=== PATIENT | male | born 1940 | race Caucasian/White ===

== ENCOUNTER 2017-06-23 00:40 | Day surgery (SDC) | payer MEDICARE, SELFPAY ==
[~2017-06-23 00:40] MED LIST: ACET500 PO; AMOCLA875 PO; ASPI81CH PO; AZIT250 PO; Aspirin EC325 MG PO; BISA5EC PO; Bactrim Ds Tab1 EACH PO; CALCA500CH PO; CALCIUM PO; CENTRUM ADULTS1 EACH PO; CEPH500 PO; Ceftriaxon2 GM/50 ML IV; Crutch1 EACH MISC; DOCU100 PO; ENOX40I SC; FINA5 PO; HYDACE5 PO; HYDACE7.5 PO; HYDCHL12.5 PO; HYDR1TAB94 PO; Hydrochloroth12.5 MG PO; LEVFLO500 PO; METHI10 PO; METO10 PO; METO25 PO; MICROZIDE12.5 MG PO; MULVITMIND PO; Metoprolol Tart25 MG PO; Norco 5-325 Ta1 EACH PO; OMEP20ER PO; OXYACE5T PO; OXYC5 PO; PAIN RELIEVER500 MG PO; PROM25 PO; Prilosec Otc20 MG PO; RIFA300 PO; RXCEPH500 PO; RXPROM25S PR; SULTRIDS PO; WARF2 PO
== END 2017-06-23 09:55 | disposition home or self-care (01) ==
LOC: ATC 00:40
DX: M86.9 Osteomyelitis, unspecified (principal); I10 Essential (primary) hypertension; E07.9 Disorder of thyroid, unspecified
CPT/HCPCS: 96365; J0696

== ENCOUNTER 2017-06-24 00:48 | Day surgery (SDC) | payer MEDICARE, SELFPAY | END 2017-06-24 10:10 | disposition home or self-care (01) | LOC: ATC 00:48 | DX: M86.9 Osteomyelitis, unspecified (principal); I10 Essential (primary) hypertension; E07.9 Disorder of thyroid, unspecified | CPT/HCPCS: 96365; J0696; J7050 ==

== ENCOUNTER 2017-06-25 00:19 | Day surgery (SDC) | payer MEDICARE, SELFPAY | END 2017-06-25 10:13 | disposition home or self-care (01) | LOC: ATC 00:19 | DX: M86.9 Osteomyelitis, unspecified (principal); I10 Essential (primary) hypertension; Z87.891 Personal history of nicotine dependence | CPT/HCPCS: 96365; J0696; J7050 ==

== ENCOUNTER 2017-06-27 00:26 | Day surgery (SDC) | payer MEDICARE, SELFPAY | END 2017-06-27 09:40 | disposition home or self-care (01) | LOC: ATC 00:26 | DX: M86.8X7 Other osteomyelitis, ankle and foot (principal); I10 Essential (primary) hypertension; E07.9 Disorder of thyroid, unspecified; Z79.899 Other long term (current) drug therapy | CPT/HCPCS: 96365; J0696; J7050 ==

== ENCOUNTER 2017-07-02 00:08 | Day surgery (SDC) | payer MEDICARE, SELFPAY | END 2017-07-02 09:37 | disposition home or self-care (01) | LOC: ATC 00:08 | DX: M86.9 Osteomyelitis, unspecified (principal); I10 Essential (primary) hypertension | CPT/HCPCS: 96365; J0696; J7050 ==

== ENCOUNTER 2017-07-03 00:30 | Day surgery (SDC) | payer MEDICARE, SELFPAY | END 2017-07-03 09:36 | disposition home or self-care (01) | LOC: ATC 00:30 | DX: M86.8X7 Other osteomyelitis, ankle and foot (principal); I10 Essential (primary) hypertension; E07.9 Disorder of thyroid, unspecified; Z96.652 Presence of left artificial knee joint; Z79.899 Other long term (current) drug therapy | CPT/HCPCS: 96365; J0696; J7050 ==

== ENCOUNTER 2017-07-04 00:06 | Day surgery (SDC) | payer MEDICARE, SELFPAY | END 2017-07-04 09:54 | disposition home or self-care (01) | LOC: ATC 00:06 | DX: M86.8X7 Other osteomyelitis, ankle and foot (principal); I10 Essential (primary) hypertension; E07.9 Disorder of thyroid, unspecified; Z79.899 Other long term (current) drug therapy; Z96.652 Presence of left artificial knee joint | CPT/HCPCS: 96365; J0696; J7050 ==

== ENCOUNTER 2017-07-05 00:22 | Day surgery (SDC) | payer MEDICARE, SELFPAY | END 2017-07-05 09:37 | disposition home or self-care (01) | LOC: ATC 00:22 | DX: M86.8X7 Other osteomyelitis, ankle and foot (principal); I10 Essential (primary) hypertension; E07.9 Disorder of thyroid, unspecified; Z79.899 Other long term (current) drug therapy; Z96.652 Presence of left artificial knee joint | CPT/HCPCS: 96365; J0696; J7050 ==

== ENCOUNTER 2017-07-06 01:04 | Day surgery (SDC) | payer MEDICARE, SELFPAY | END 2017-07-06 09:58 | disposition home or self-care (01) | LOC: ATC 01:04 | DX: M86.8X7 Other osteomyelitis, ankle and foot (principal); I10 Essential (primary) hypertension; E07.9 Disorder of thyroid, unspecified; Z79.899 Other long term (current) drug therapy; Z96.652 Presence of left artificial knee joint | CPT/HCPCS: 96365; J0696; J7050 ==

== ENCOUNTER 2017-07-07 00:45 | Day surgery (SDC) | payer MEDICARE, SELFPAY | END 2017-07-07 09:50 | disposition home or self-care (01) | LOC: ATC 00:45 | DX: M86.9 Osteomyelitis, unspecified (principal); Z87.891 Personal history of nicotine dependence | CPT/HCPCS: 96365; J0696; J7050 ==

== ENCOUNTER 2017-07-08 00:45 | Day surgery (SDC) | payer MEDICARE, SELFPAY | END 2017-07-08 09:07 | disposition home or self-care (01) | LOC: ATC 00:45 | DX: M86.8X7 Other osteomyelitis, ankle and foot (principal); I10 Essential (primary) hypertension; E07.9 Disorder of thyroid, unspecified; Z79.899 Other long term (current) drug therapy; Z96.652 Presence of left artificial knee joint | CPT/HCPCS: 96374; J0696 ==

== ENCOUNTER 2017-07-09 00:25 | Day surgery (SDC) | payer MEDICARE, SELFPAY | END 2017-07-09 09:20 | disposition home or self-care (01) | LOC: ATC 00:25 | DX: M86.8X7 Other osteomyelitis, ankle and foot (principal); I10 Essential (primary) hypertension; E07.9 Disorder of thyroid, unspecified; Z79.899 Other long term (current) drug therapy; Z96.652 Presence of left artificial knee joint | CPT/HCPCS: 96374; J0696 ==

== ENCOUNTER 2017-07-10 00:12 | Day surgery (SDC) | payer MEDICARE, SELFPAY | END 2017-07-10 09:15 | disposition home or self-care (01) | LOC: ATC 00:12 | DX: M86.8X7 Other osteomyelitis, ankle and foot (principal); I10 Essential (primary) hypertension; E07.9 Disorder of thyroid, unspecified; Z79.899 Other long term (current) drug therapy; Z96.652 Presence of left artificial knee joint | CPT/HCPCS: 96374; J0696 ==

== ENCOUNTER 2017-07-11 00:34 | Day surgery (SDC) | payer MEDICARE, SELFPAY | END 2017-07-11 09:03 | disposition home or self-care (01) | LOC: ATC 00:34 | DX: M86.9 Osteomyelitis, unspecified (principal); I10 Essential (primary) hypertension; Z87.891 Personal history of nicotine dependence | CPT/HCPCS: 96374; J0696 ==

== ENCOUNTER 2017-07-12 00:45 | Day surgery (SDC) | payer MEDICARE, SELFPAY | END 2017-07-12 09:26 | disposition home or self-care (01) | LOC: ATC 00:45 | DX: M86.9 Osteomyelitis, unspecified (principal); I10 Essential (primary) hypertension; E07.9 Disorder of thyroid, unspecified; Z87.891 Personal history of nicotine dependence | CPT/HCPCS: 85651; 86141; 96374; J0696 ==

== ENCOUNTER 2017-07-13 00:25 | Day surgery (SDC) | payer MEDICARE, SELFPAY | END 2017-07-13 09:10 | disposition home or self-care (01) | LOC: ATC 00:25 | DX: M86.9 Osteomyelitis, unspecified (principal); Z87.891 Personal history of nicotine dependence | CPT/HCPCS: 96374; J0696 ==

== ENCOUNTER 2017-07-14 01:05 | Day surgery (SDC) | payer MEDICARE, SELFPAY | END 2017-07-14 09:26 | disposition home or self-care (01) | LOC: ATC 01:05 | DX: M86.8X7 Other osteomyelitis, ankle and foot (principal); T84.69XA Infection and inflammatory reaction due to internal fixation device of other site, initial encounter; I10 Essential (primary) hypertension; E03.9 Hypothyroidism, unspecified; Z79.899 Other long term (current) drug therapy | CPT/HCPCS: 96374; J0696 ==

== ENCOUNTER 2017-07-15 00:25 | Day surgery (SDC) | payer MEDICARE, SELFPAY | END 2017-07-15 09:25 | disposition home or self-care (01) | LOC: ATC 00:25 | DX: M86.9 Osteomyelitis, unspecified (principal); I10 Essential (primary) hypertension; E07.9 Disorder of thyroid, unspecified; Z87.891 Personal history of nicotine dependence | CPT/HCPCS: 96374; J0696 ==

== ENCOUNTER 2017-07-16 00:10 | Day surgery (SDC) | payer MEDICARE, SELFPAY | END 2017-07-16 09:11 | disposition home or self-care (01) | LOC: ATC 00:10 | DX: M86.9 Osteomyelitis, unspecified (principal); I10 Essential (primary) hypertension; Z87.891 Personal history of nicotine dependence | CPT/HCPCS: 96374; J0696 ==

== ENCOUNTER 2017-07-17 00:14 | Day surgery (SDC) | payer MEDICARE, SELFPAY | END 2017-07-17 09:20 | disposition home or self-care (01) | LOC: ATC 00:14 | DX: M86.8X7 Other osteomyelitis, ankle and foot (principal); I10 Essential (primary) hypertension; E03.9 Hypothyroidism, unspecified; Z96.652 Presence of left artificial knee joint; Z79.899 Other long term (current) drug therapy; Z87.891 Personal history of nicotine dependence | CPT/HCPCS: 96374; J0696; J7050 ==

== ENCOUNTER 2017-07-18 00:22 | Day surgery (SDC) | payer MEDICARE, SELFPAY | END 2017-07-18 09:09 | disposition home or self-care (01) | LOC: ATC 00:22 | DX: M86.9 Osteomyelitis, unspecified (principal); I10 Essential (primary) hypertension; E07.9 Disorder of thyroid, unspecified; Z87.891 Personal history of nicotine dependence | CPT/HCPCS: 96374; J0696 ==

== ENCOUNTER 2017-07-19 00:49 | Day surgery (SDC) | payer MEDICARE, SELFPAY | END 2017-07-19 09:12 | disposition home or self-care (01) | LOC: ATC 00:49 | DX: M86.9 Osteomyelitis, unspecified (principal); I10 Essential (primary) hypertension; E07.9 Disorder of thyroid, unspecified; Z87.891 Personal history of nicotine dependence | CPT/HCPCS: 96374; J0696 ==

== ENCOUNTER 2017-07-20 00:20 | Day surgery (SDC) | payer MEDICARE, SELFPAY | END 2017-07-20 09:06 | disposition home or self-care (01) | LOC: ATC 00:20 | DX: M86.9 Osteomyelitis, unspecified (principal); I10 Essential (primary) hypertension; E07.9 Disorder of thyroid, unspecified; Z87.891 Personal history of nicotine dependence | CPT/HCPCS: 96374; J0696 ==

== ENCOUNTER 2017-07-21 00:44 | Day surgery (SDC) | payer MEDICARE, SELFPAY | END 2017-07-21 09:15 | disposition home or self-care (01) | LOC: ATC 00:44 | DX: M86.8X7 Other osteomyelitis, ankle and foot (principal); I10 Essential (primary) hypertension; E03.9 Hypothyroidism, unspecified; Z96.652 Presence of left artificial knee joint; Z79.899 Other long term (current) drug therapy; Z87.891 Personal history of nicotine dependence | CPT/HCPCS: 96374; J0696 ==

== ENCOUNTER 2017-07-22 00:37 | Day surgery (SDC) | payer MEDICARE, SELFPAY | END 2017-07-22 09:30 | disposition home or self-care (01) | LOC: ATC 00:37 | DX: M86.8X7 Other osteomyelitis, ankle and foot (principal); I10 Essential (primary) hypertension; E03.9 Hypothyroidism, unspecified; Z96.652 Presence of left artificial knee joint; Z79.899 Other long term (current) drug therapy; Z87.891 Personal history of nicotine dependence | CPT/HCPCS: 96374; J0696 ==

== ENCOUNTER 2017-07-23 00:50 | Day surgery (SDC) | payer MEDICARE, SELFPAY | END 2017-07-23 09:12 | disposition home or self-care (01) | LOC: ATC 00:50 | DX: M86.9 Osteomyelitis, unspecified (principal); I10 Essential (primary) hypertension; Z87.891 Personal history of nicotine dependence | CPT/HCPCS: 96374; J0696 ==

== ENCOUNTER 2017-07-24 00:25 | Day surgery (SDC) | payer MEDICARE, SELFPAY | END 2017-07-24 09:36 | disposition home or self-care (01) | LOC: ATC 00:25 | DX: M86.9 Osteomyelitis, unspecified (principal); I10 Essential (primary) hypertension; E07.9 Disorder of thyroid, unspecified; Z87.891 Personal history of nicotine dependence | CPT/HCPCS: 96374; J0696 ==

== ENCOUNTER 2017-07-25 08:57 | Day surgery (SDC) | payer MEDICARE, SELFPAY | END 2017-07-25 09:21 | disposition home or self-care (01) | LOC: ATC 08:57 | DX: M86.9 Osteomyelitis, unspecified (principal) | CPT/HCPCS: 96374; J0696 ==

== ENCOUNTER 2017-07-26 00:29 | Day surgery (SDC) | payer MEDICARE, SELFPAY | END 2017-07-26 09:20 | disposition home or self-care (01) | LOC: ATC 00:29 | DX: M86.9 Osteomyelitis, unspecified (principal); I10 Essential (primary) hypertension; Z87.891 Personal history of nicotine dependence | CPT/HCPCS: 85651; 86140; 96374; J0696 ==

== ENCOUNTER 2017-07-27 00:39 | Day surgery (SDC) | payer MEDICARE, SELFPAY | END 2017-07-27 10:00 | disposition home or self-care (01) | LOC: ATC 00:39 | DX: M86.9 Osteomyelitis, unspecified (principal); I10 Essential (primary) hypertension; E07.9 Disorder of thyroid, unspecified; Z87.891 Personal history of nicotine dependence | CPT/HCPCS: 96374; J0696 ==

== ENCOUNTER 2017-07-28 00:33 | Day surgery (SDC) | payer MEDICARE, SELFPAY | END 2017-07-28 09:15 | disposition home or self-care (01) | LOC: ATC 00:33 | DX: M86.9 Osteomyelitis, unspecified (principal); I10 Essential (primary) hypertension; Z79.899 Other long term (current) drug therapy; E07.9 Disorder of thyroid, unspecified; Z87.891 Personal history of nicotine dependence | CPT/HCPCS: 96374; J0696 ==

== ENCOUNTER 2017-07-29 00:45 | Day surgery (SDC) | payer MEDICARE, SELFPAY | END 2017-07-29 09:55 | disposition home or self-care (01) | LOC: ATC 00:45 | DX: M86.9 Osteomyelitis, unspecified (principal); I10 Essential (primary) hypertension; Z87.891 Personal history of nicotine dependence | CPT/HCPCS: 96374; J0696 ==

== ENCOUNTER 2017-07-30 00:25 | Day surgery (SDC) | payer MEDICARE, SELFPAY | END 2017-07-30 08:40 | disposition home or self-care (01) | LOC: ATC 00:25 | DX: M86.9 Osteomyelitis, unspecified (principal); I10 Essential (primary) hypertension; E07.9 Disorder of thyroid, unspecified; Z87.891 Personal history of nicotine dependence | CPT/HCPCS: 96374; J0696 ==

== ENCOUNTER 2017-07-31 00:14 | Day surgery (SDC) | payer MEDICARE, SELFPAY | END 2017-07-31 08:43 | disposition home or self-care (01) | LOC: ATC 00:14 | DX: M86.9 Osteomyelitis, unspecified (principal); I10 Essential (primary) hypertension; Z87.891 Personal history of nicotine dependence | CPT/HCPCS: 96374; J0696 ==

== ENCOUNTER 2018-07-10 08:47 | Emergency (ER) | payer MEDICARE, SELFPAY ==
[~2018-07-10] VITALS: Ht 182.9 cm; Wt 106.1 kg
[2018-07-10] MEDS ORDERED: Bactrim 400-801 EACH PO (09:32)
[2018-07-10] MEDS ORDERED: Mupirocin22 GM TOP (09:32)
[2018-07-10] MEDS ORDERED: CEPH500 PO (09:32)
[2018-07-10 13:18] LABS: Free Thyroxine 1.04 ng/dL (0.70-1.60)
[2018-07-10 13:22] LABS: Thyroid Stimulating Hormone 0.585 uIU/mL (0.360-4.800); Triiodothyronine, Free 2.85 pg/mL (2.18-3.98)
== END 2018-07-10 09:40 | disposition home or self-care (01) ==
LOC: ER 08:47
PROVIDERS: Internal Medicine
DX: L03.114 Cellulitis of left upper limb (principal); Z87.891 Personal history of nicotine dependence; Z79.899 Other long term (current) drug therapy; Z79.82 Long term (current) use of aspirin
CPT/HCPCS: 36415; 84439; 84443; 84481; 99283

== ENCOUNTER 2018-07-13 11:45 | Emergency (ER) | payer MEDICARE, SELFPAY ==
[~2018-07-13] VITALS: Ht 182.9 cm; Wt 107.5 kg
[~2018-07-13 11:45] MED LIST changes: +Bactrim 400-801 EACH PO; +Mupirocin22 GM TOP
[2018-07-13] MEDS ORDERED: Keflex500 MG PO (13:08)
[2018-07-13] MEDS ORDERED: Bactrim Ds Tab1 EACH PO (13:08)
== END 2018-07-13 13:23 | disposition home or self-care (01) ==
LOC: ER 11:45
DX: L03.114 Cellulitis of left upper limb (principal); L02.414 Cutaneous abscess of left upper limb; R06.02 Shortness of breath; Z79.899 Other long term (current) drug therapy; Z79.82 Long term (current) use of aspirin; I10 Essential (primary) hypertension; G43.909 Migraine, unspecified, not intractable, without status migrainosus
CPT/HCPCS: 10060; 99283-25

== ENCOUNTER 2018-07-19 17:10 | Emergency (ER) | payer MEDICARE, SELFPAY ==
[~2018-07-19] VITALS: Ht 182.9 cm; Wt 102.1 kg
[~2018-07-19 17:10] MED LIST changes: +Keflex500 MG PO
[2018-07-19] MEDS ORDERED: Pepcid20 MG PO (18:06)
[2018-07-19] MEDS ORDERED: BENADRYL25 MG PO (18:06)
== END 2018-07-19 18:12 | disposition home or self-care (01) ==
LOC: ER 17:10
DX: R21 Rash and other nonspecific skin eruption (principal); I10 Essential (primary) hypertension; Z79.82 Long term (current) use of aspirin; Z79.899 Other long term (current) drug therapy
CPT/HCPCS: 96372; 99282-25; J1100

== ENCOUNTER 2018-09-07 10:05 | Inpatient (IN) | payer MEDICARE ==
[~2018-09-07] VITALS: Ht 182.9 cm; Wt 99.0 kg
[~2018-09-07 10:05] MED LIST changes: +BENADRYL25 MG PO; +Pepcid20 MG PO
[2018-09-07 11:08] LABS: BASOPHILS ABSOLUTE AUTO 0.06 K/mm3 (0.00-0.23); BASOPHILS PERCENT AUTO 1 % (0-2); EOSINOPHILS ABSOLUTE AUTO 0.23 K/mm3 (0.00-0.68); EOSINOPHILS PERCENT AUTO 2 % (0-6); Hematocrit 32.7 % (37.0-53.0); Hemoglobin 10.1 g/dL (13.5-17.5); IMMATURE GRAN ABSOLUTE AUTO 0.05 K/mm3 (0.00-0.10); IMMATURE GRAN PERCENT AUTO 0 % (0-1); LYMPHOCYTES ABSOLUTE AUTO 0.97 K/mm3 (0.84-5.20); LYMPHOCYTES PERCENT AUTO 9 % (21-46); MONOCYTES ABSOLUTE AUTO 1.31 K/mm3 (0.16-1.47); MONOCYTES PERCENT AUTO 12 % (4-13); Mean Corpuscular HGB 25.6 pg (26.0-34.0); Mean Corpuscular HGB Conc 30.9 g/dL (31.5-36.5); Mean Corpuscular Volume 83 fL (80-100); Mean Platelet Volume 9.8 fL (9.1-12.4); NEUTROPHILS ABSOLUTE AUTO 8.66 K/mm3 (1.96-9.15); NEUTROPHILS PERCENT AUTO 77 % (41-73); Platelet Count 464 K/mm3 (150-400); RDW Standard Deviation 45.4 fL (35.1-46.3); Red Blood Cell Count 3.95 M/mm3 (4.30-5.90); White Blood Cell Count 11.28 K/mm3 (4.00-11.30)
[2018-09-07 11:30] LABS: Alanine Aminotransfer (ALT/SGP 17 U/L (12-78); Albumin, Blood 2.9 g/dL (3.4-5.0); Albumin/Globulin Ratio 0.6 (0.8-1.8); Alk Phos 111 U/L (50-136); Anion Gap 9 mmol/L (6-16); Aspartate Aminotrans (AST/SGOT 15 U/L (12-37); Bilirubin, Total 0.7 mg/dL (0.1-1.0); Blood Urea Nitrogen 17 mg/dL (8-24); Bun/Creatinine Ratio 20.3 (12.0-20.0); CO2, Blood 24 mmol/L (21-32); Calcium, Blood 8.4 mg/dL (8.5-10.1); Chloride, Blood 96 mmol/L (98-108); Creatinine, Blood 0.84 mg/dL (0.60-1.20); Globulin, Blood 4.9 g/dL (2.2-4.0); Glomerular Filtration Rate >60 (60-); Glucose, Blood 104 mg/dL (70-99); Potassium, Blood 4.3 mmol/L (3.5-5.5); Sodium, Blood 129 mmol/L (136-145); Total Protein, Blood 7.8 g/dL (6.4-8.2)
[2018-09-07 12:57] LABS: Base Excess Venous -0.7 mmol/L; Bicarbonate Venous 23.8 mmol/L (24.0-30.0); PCO2 Venous 39.7 mmHg (38-42); PO2 Venous 64.3 mmHg (38-42); pH Blood Venous 7.39 (7.34-7.37)
[2018-09-07] MEDS ORDERED: **INCOMPLETE MED REC (14:29)
[2018-09-07] MEDS ORDERED: FLUT1DIS2 INH (14:41)
[2018-09-07] MEDS ORDERED: ALBU90OI INH (14:41)
[2018-09-07] MEDS ORDERED: TAMS.4ER PO (14:42)
[2018-09-07] MEDS ORDERED: FURO20 PO (14:43)
[2018-09-07] MEDS ORDERED: METHI10 PO (14:44)
[2018-09-07] MEDS ORDERED: Micro-K10 MEQ PO (14:47)
[2018-09-07] MEDS ORDERED: Lopressor 25 mg25 MG PO (14:47)
[2018-09-07 15:07] LABS: Free Thyroxine 1.37 ng/dL (0.70-1.60)
[2018-09-07 15:09] LABS: Triiodothyronine, Free 2.6 pg/mL (2.18-3.98)
[2018-09-07 16:41] LABS: Influenza A Negative (NEGATIVE); Influenza B Negative (NEGATIVE)
--- NOTE | 2018-09-07 17:15 | NUR ---
Initial Visit: Palliative Care Consult for AD/POLST. Spoke with Lai YOUNG STUDIO DESIGNER and he requests palliative care to discuss AD/POLST. Pt is A&O and denies pain at this time. He reports 7/7 dyspnea and is experiencing labored breathing. Currently receiving oxygen. Engaged in therapeutic discussion about goals of care. Pt's Ayala is present during visit. Pt lives at home with his . There son lives next door and Pt's brother in law lives down the street. Pt reports that at baseline he is independent and does not require assistance with care or ADL's. He denies oxygen use at home. Pt and report adequate support at this time. Discussed AD/POLST with Pt and and they express interest. Educated Pt and his on each section of POLST. Pt reports that he will complete POLST at home when his son is present. Pt and reports no concerns at this time. Plan: Obtain copy of POLST when completed.
[2018-09-07 22:22] LABS: Anion Gap 9 mmol/L (6-16); Blood Urea Nitrogen 16 mg/dL (8-24); Bun/Creatinine Ratio 17.8 (12.0-20.0); CO2, Blood 25 mmol/L (21-32); Calcium, Blood 8.2 mg/dL (8.5-10.1); Chloride, Blood 95 mmol/L (98-108); Glomerular Filtration Rate >60 (60-); Glucose, Blood 98 mg/dL (70-99); Potassium, Blood 4.1 mmol/L (3.5-5.5); Sodium, Blood 129 mmol/L (136-145)
[2018-09-07 22:57] LABS: PCO2 Arterial 35.9 mmHg (35-45); PO2 Arterial 60.6 mmHg (80-100); pH Blood Arterial 7.47 (7.35-7.45)
[2018-09-08] MEDS ORDERED: FAMO20 PO (01:20)
[2018-09-08] MEDS ORDERED: FLUT1DIS2 INH (01:20)
[2018-09-08] MEDS ORDERED: Lopressor 25 mg25 MG PO (01:21)
[2018-09-08 02:08] LABS: Source, Urine Clean Catch
[2018-09-08 02:16] LABS: Bilirubin, Urine Neg (Neg); Blood, Urine 1+ (Neg); Glucose Qualitative, Urine Neg (Neg); Ketones, Urine Neg (Neg); Leukocyte Esterase, Urine Neg (Neg); Nitrite, Urine Neg (Neg); Protein, Urine 1+ (Neg); Specific Gravity, Urine 1.015 (1.003-1.022); Urobilinogen, Urine NORM (Normal)
[2018-09-08 02:27] LABS: Appearance, Urine Clear (Clear); Bacteria Rare /hpf; Color, Urine Yellow (P-Yellow); Red Blood Cells, Urine 0-2 /hpf (0-2); Squamous Epithelial Cells Few /hpf (Few); White Blood Cells, Urine Rare /hpf (0-5)
--- NOTE | 2018-09-08 06:28 | NUR ---
ASSUMED CARE OF PATIENT AT APPROXIMATELY 0045 FROM ED RN VANITA. PATIENT ARRIVED TO UNIT VIA STRETCHER; ONE ASSIST OUT OF BED; DYSPNEA WITH ACTIVITY; WEAK. PATIENT DENIES PAIN, NUMBNESS, TINGLING AND DIZZINESS. AFIB ON TELE WITH RATES 80-100; OXYGEN SATURATION WAS 90% ON 5LPM VIA NC; CURRENTLY ABOVE 90% ON OXYMIZER 6-8LPM; SNORES. PATIENT SLEPT ABOUT FIVE HOURS LAST NIGHT. CALLS TO USE URINAL AT BEDSIDE OR USES URINAL IN BED. PATIENT REPORTS HE FEELS MUCH BETTER COMPARED TO WHEN HE ARRIVED TO THE HOSPITAL. ADMISSION COMPLETE. PIV S/L. UA SENT; WILL GET RESP PANEL WHEN PATIENT WAKES UP. PATIENT CURRENTLY SLEEPING IN BED; CALL LIGHT IN REACH; BED IN LOWEST POSISTION; WILL CONTINUE TO MONITOR AND ASSESS UNTIL END OF SHIFT.
--- NOTE | 2018-09-08 08:00 | NUR ---
pt laying in bed moaning, coughing, and speaking to himself. he states he feels ok, has been sick for a long time. a/ox3, but is forgetful, and needs redirecting. lungs are very course t/o, resp even and some laboring, has a productive cough of yellow blood tinged sputum. he frequently takes off his o2, sats dropped to 72% when he took it off to eat, instructed him to leave it on and breath through his nose, had to turn him up to 10 liters, to bring him up to 90%. resp is labored, using accessory muscles, hrr, tele in place running afib in the 90's per monitor, see strip, no edema noted, ppp+1, cap refill <3sec. vs stable, afebrile, iv site is clear and patent, btx4, abd round soft nontender, voids clear yellow urine via urinal without diff, skin c/w/d, asher abbasi call light in reach.
[2018-09-08 09:05] LABS: BASOPHILS ABSOLUTE AUTO 0.09 K/mm3 (0.00-0.23); BASOPHILS PERCENT AUTO 1 % (0-2); EOSINOPHILS ABSOLUTE AUTO 0.54 K/mm3 (0.00-0.68); EOSINOPHILS PERCENT AUTO 5 % (0-6); Hematocrit 32.6 % (37.0-53.0); IMMATURE GRAN ABSOLUTE AUTO 0.05 K/mm3 (0.00-0.10); IMMATURE GRAN PERCENT AUTO 0 % (0-1); LYMPHOCYTES PERCENT AUTO 9 % (21-46); MONOCYTES ABSOLUTE AUTO 1.54 K/mm3 (0.16-1.47); MONOCYTES PERCENT AUTO 13 % (4-13); Mean Corpuscular HGB 25.7 pg (26.0-34.0); Mean Corpuscular HGB Conc 30.7 g/dL (31.5-36.5); Mean Corpuscular Volume 84 fL (80-100); Mean Platelet Volume 9.9 fL (9.1-12.4); NEUTROPHILS ABSOLUTE AUTO 8.59 K/mm3 (1.96-9.15); NEUTROPHILS PERCENT AUTO 73 % (41-73); Platelet Count 451 K/mm3 (150-400); RDW Coefficient Variation 15.4 % (11.7-14.2); RDW Standard Deviation 46.4 fL (35.1-46.3); Red Blood Cell Count 3.89 M/mm3 (4.30-5.90); White Blood Cell Count 11.81 K/mm3 (4.00-11.30)
--- NOTE | 2018-09-08 09:09 | NUR ---
ECHOCARDIOGRAM COMPLETED
[2018-09-08 09:18] LABS: Anion Gap 9 mmol/L (6-16); Blood Urea Nitrogen 16 mg/dL (8-24); Bun/Creatinine Ratio 18.6 (12.0-20.0); CO2, Blood 25 mmol/L (21-32); Calcium, Blood 8.1 mg/dL (8.5-10.1); Chloride, Blood 95 mmol/L (98-108); Creatinine, Blood 0.86 mg/dL (0.60-1.20); Glomerular Filtration Rate >60 (60-); Glucose, Blood 97 mg/dL (70-99); Potassium, Blood 4.2 mmol/L (3.5-5.5); Sodium, Blood 129 mmol/L (136-145)
--- NOTE | 2018-09-08 13:30 | NUR ---
pt work of breathing is increasing. he is up to 11 liters on high flow cannula. his daughter is in to visit and is trying to help him breath through his nose instead of his mouth, he needs lots of direction. spoke to him about using a bipap, he was very reluctant. call light in reach.
--- NOTE | 2018-09-08 19:06 | NUR ---
pt was set up with a bipap, he tolerated much better than expected. stayed on it for about 2 hrs. was able to rest some. seems to be breathing a bit easier the rest of the shift. no further changes. call light in reach.
--- NOTE | 2018-09-08 19:40 | NUR ---
ASSUMED CARE PT RESTING IN ROOM COMFORTABLY. PER DAY SHIFT PT HAS HAD EXP WHEEZES T/O SHIFT AND DOES NOT TOLERATE BIPAP WELL. PT WORE BIPAP FOR APROX 2 HRS BEFORE ASKING FOR BREAK. WHEN NOT ON BIPAP PT IS ON 13L HI FLOW O2. SATS >92%. PT REFUSING TO WEAR BIPAP TONIGHT FOR BED. DENIES PAIN. CALL LIGHT IN REACH, BED ALARM ON D/T PT IMPULSIVITY. CALL LIGHT IN REACH.
[2018-09-08 20:52] LABS: Adenovirus Not Detected (NOT DETECT); Bordetella pertussis Not Detected (NOT DETECT); Chlamydophila pneumoniae Not Detected (NOT DETECT); Coronavirus 229E Not Detected (NOT DETECT); Coronavirus HKU1 Not Detected (NOT DETECT); Coronavirus NL63 Not Detected (NOT DETECT); Coronavirus OC43 Not Detected (NOT DETECT); Human Metapneumovirus Not Detected (NOT DETECT); Human Rhinovirus/Enterovirus Not Detected (NOT DETECT); Influenza A Not Detected (NOT DETECT); Influenza A/2009-H1 Not Detected (NOT DETECT); Influenza A/H1 Not Detected (NOT DETECT); Influenza A/H3 Not Detected (NOT DETECT); Influenza B Not Detected (NOT DETECT); Mycoplasma pneumoniae Not Detected (NOT DETECT); Parainfluenza Virus 1 Not Detected (NOT DETECT); Parainfluenza Virus 2 Not Detected (NOT DETECT); Parainfluenza Virus 3 Not Detected (NOT DETECT); Parainfluenza Virus 4 Not Detected (NOT DETECT); Respiratory Syncytial Virus Not Detected (NOT DETECT)
[2018-09-09 04:13] LABS: BASOPHILS ABSOLUTE AUTO 0.05 K/mm3 (0.00-0.23); BASOPHILS PERCENT AUTO 0 % (0-2); EOSINOPHILS ABSOLUTE AUTO 0.07 K/mm3 (0.00-0.68); EOSINOPHILS PERCENT AUTO 1 % (0-6); Hematocrit 31.6 % (37.0-53.0); Hemoglobin 9.8 g/dL (13.5-17.5); IMMATURE GRAN ABSOLUTE AUTO 0.06 K/mm3 (0.00-0.10); IMMATURE GRAN PERCENT AUTO 0 % (0-1); LYMPHOCYTES ABSOLUTE AUTO 0.93 K/mm3 (0.84-5.20); LYMPHOCYTES PERCENT AUTO 6 % (21-46); MONOCYTES ABSOLUTE AUTO 1.61 K/mm3 (0.16-1.47); MONOCYTES PERCENT AUTO 11 % (4-13); Mean Corpuscular HGB 26.1 pg (26.0-34.0); Mean Corpuscular Volume 84 fL (80-100); NEUTROPHILS ABSOLUTE AUTO 11.92 K/mm3 (1.96-9.15); NEUTROPHILS PERCENT AUTO 81 % (41-73); Platelet Count 446 K/mm3 (150-400); RDW Coefficient Variation 15.4 % (11.7-14.2); RDW Standard Deviation 46.5 fL (35.1-46.3); Red Blood Cell Count 3.76 M/mm3 (4.30-5.90); White Blood Cell Count 14.64 K/mm3 (4.00-11.30)
[2018-09-09 04:29] LABS: Anion Gap 8 mmol/L (6-16); Blood Urea Nitrogen 23 mg/dL (8-24); Bun/Creatinine Ratio 25.3 (12.0-20.0); CO2, Blood 28 mmol/L (21-32); Calcium, Blood 8.5 mg/dL (8.5-10.1); Chloride, Blood 94 mmol/L (98-108); Creatinine, Blood 0.91 mg/dL (0.60-1.20); Glomerular Filtration Rate >60 (60-); Glucose, Blood 116 mg/dL (70-99); Potassium, Blood 4.3 mmol/L (3.5-5.5); Sodium, Blood 130 mmol/L (136-145)
--- NOTE | 2018-09-09 05:41 | NUR ---
SHIFT SUMMARY PT RESTING IN ROOM COMFORTABLY. PT HAD NO ACUTE CHANGES IN STATUS T.O NIGHT. PT DID REFUSE TO WEAR THE BIPAP INITIALLY, THEN CONSENTED TO WEAR FOR SHORT TIME. PT WORE BIPAP FOR APROX 1 HOUR, BEFORE WANTING IT OFF. PT BACK ON HI-FLOW CANUAL AND REFUSED TO GO BACK ON BIPAP. PT SATS REMAINED 88-92% T/O NIGHT. DENIES PAIN. BED ALARM ON FOR SAFETY. CALL LIGHT IN REACH.
--- NOTE | 2018-09-09 08:19 | NUR ---
NURSING PCU DAYSHIFT: Assumed care of pt at approx 0700. A/O, pleasant, fairly cooperative w/care, [place]. Denies any pain/discomfort at rest. Skin is fragile w/no noted breakdown. General weakness though can reposition independently in bed. Tele in place, afib w/HR 90-110, no c/o CP/pressure, SBP 120's, no noted edema. L/S coarse in upper lobes w/exp wheezes t/o, dyspnea w/minimal exertion, O2 sat upper 80's on 14L HF NC, respirations shallow and irregular w/accessory muscle use, cough producing thick/yellow sputum, continuous bedside O2 monitoring. Abd SNT, BT+, voiding w/o difficulty per pt. PIV x1, s/l. Pt appears fragile from a respiratory standpoint. Education provided regarding deep breathing exercises, encouragement done for bipap use though pt refuses at this time. RT at bedside for tx, PMD at bedside, new d/o received. Pt denies any current needs or questions regarding plan of care, call light in reach, cont to monitor for any changes.
--- NOTE | 2018-09-09 17:23 | NUR ---
NURSING PCU DAYSHIFT SUMMARY: No significant changes noted t/o the shift. Cardiac status unchanged, respiratory status remains fragile. Pt was encouraged t/o the shift by RN and RT to use the bipap though did not tolerate. Agreed to wear bipap w/family encouragement for 15 min this evening. Respirations remain rapid, dyspnea w/minimal exertion. O2 sat 88-91% on 13-15L HF NC. Family remains at bedside. Update provided, plan of care discussed, questions answered. Pt currently denies any questions/needs, call light in reach, cont to monitor until rpt is given to NOC RN.
--- NOTE | 2018-09-09 19:40 | NUR ---
ASSUMED CARE PT RESTING IN ROOM COMFORTABLY W/ SPOUSE AT BEDSIDE. PER DAY SHIFT PT CONTINUED TO REFUSE TO WEAR BIPAP. PT CONTINUES TO HAVE O2 SATS BETWEEN 88-92% ON 13L HI-FLOW O2 NC. PT NEEDS SIGNIFICANT ENCOURAGMENT TO USE BIPAP. FAMILY IN ROOM REPORTS THEY HAVE BEEN ENCOURAGING PT TO USE BIPAP WELL. NO OTHER ACUTE CHANGES IN STATUS TODAY. CALL LIGHT IN REACH.
[2018-09-10 05:08] LABS: Anion Gap 8 mmol/L (6-16); Blood Urea Nitrogen 28 mg/dL (8-24); Bun/Creatinine Ratio 30.3 (12.0-20.0); CO2, Blood 27 mmol/L (21-32); Calcium, Blood 8.3 mg/dL (8.5-10.1); Chloride, Blood 95 mmol/L (98-108); Creatinine, Blood 0.92 mg/dL (0.60-1.20); Glomerular Filtration Rate >60 (60-); Glucose, Blood 124 mg/dL (70-99); Potassium, Blood 4.7 mmol/L (3.5-5.5); Sodium, Blood 130 mmol/L (136-145)
--- NOTE | 2018-09-10 05:39 | NUR ---
SHIFT SUMMARY PT SLEEPING IN ROOM COMFORTABLY. PT HAD NO ACUTE CHANGES IN STATUS OVERNIGHT. PT REFUSED TO WEAR BIPAP OVERNIGHT. THIS RN HAD MANY DISCUSSIONS ABOUT THE NECESITY OF BIPAP FOR IMPROVING PT'S O2 DEMAND AND LUNG CAPACITY. PT INSISTS THAT THE MASK MAKES HIM FEEL WORSE. REFUSES TO WEAR EVEN FOR SHORT PERIOD. PT REMAINS ON 13L HI-FLOW NC, W/ SATS 88-92%. DENIES CP. DENIES SOB. BED ALARM ON FOR SAFETY. CALL LIGHT IN REACH.
--- NOTE | 2018-09-10 07:14 | NUR ---
NURSING PCU DAYSHIFT: Assumed care of pt at approx 0700. Appears a bit more weak and lethargic this a.m. compared to previous day though is arousable to verbal stimuli. Denies any pain/discomfort. Skin is fragile w/no breakdown. Tele in place, afib w/HR low 100's, no c/o CP/pressure, SBP 130's, no noted edema. L/S coarse in upper lobes w/scattered expiratory wheezes, respirations shallow and irregular w/accessory muscle use, O2 sat upper 80's on 13L HF NC, cough producing thick/yellow sputum, continuous bedside O2 monitoring. Abd SNT, BT+, voiding using urinal. PIV x1, s/l. Pt continues to refuse bipap though respirations appear more labored this a.m. O2 increased to 15L to maintain O2 sat >88%. Education provided regarding deep breathing exercises and importance of equipment compliance, verbalized understanding though continues to refuse. Call light in reach, bed alarm set for safety purposes. Awaiting rounding from PMD, cont to monitor for changes.
--- NOTE | 2018-09-10 16:51 | NUR ---
NURSING PCU DAYSHIFT SUMMARY: RT at bedside this a.m. for breathing tx and assessment. Pt's respirations remained labored w/grunting sounds w/each breath and increasing anxiety. Pt placed on Airvo w/initial settings of 50L and 68% FiO2. Respirations became more even and unlabored and O2 sat increased to low 90's. Pt continues to tolerate Airvo well w/current settings of 50L and 54% FiO2, continuous biox remains in place, O2 sat mid 90's. Pt is resting comfortably w/no questions/needs at this time. Call light in reach, cont to monitor until rpt is given to NOC RN.
--- NOTE | 2018-09-10 17:51 | NUR ---
Patient has given this student nurse permission to access medical records, administer medications, and provide care on 09/11/2018
[2018-09-11 04:11] LABS: BASOPHILS ABSOLUTE AUTO 0.05 K/mm3 (0.00-0.23); BASOPHILS PERCENT AUTO 0 % (0-2); EOSINOPHILS PERCENT AUTO 1 % (0-6); Hematocrit 32.9 % (37.0-53.0); Hemoglobin 9.9 g/dL (13.5-17.5); IMMATURE GRAN ABSOLUTE AUTO 0.07 K/mm3 (0.00-0.10); IMMATURE GRAN PERCENT AUTO 1 % (0-1); LYMPHOCYTES ABSOLUTE AUTO 1.27 K/mm3 (0.84-5.20); LYMPHOCYTES PERCENT AUTO 9 % (21-46); MONOCYTES ABSOLUTE AUTO 1.39 K/mm3 (0.16-1.47); MONOCYTES PERCENT AUTO 9 % (4-13); Mean Corpuscular HGB 25.1 pg (26.0-34.0); Mean Corpuscular HGB Conc 30.1 g/dL (31.5-36.5); Mean Corpuscular Volume 83 fL (80-100); Mean Platelet Volume 9.8 fL (9.1-12.4); NEUTROPHILS ABSOLUTE AUTO 11.96 K/mm3 (1.96-9.15); NEUTROPHILS PERCENT AUTO 81 % (41-73); Platelet Count 521 K/mm3 (150-400); RDW Coefficient Variation 15.2 % (11.7-14.2); RDW Standard Deviation 46.1 fL (35.1-46.3); Red Blood Cell Count 3.95 M/mm3 (4.30-5.90); White Blood Cell Count 14.84 K/mm3 (4.00-11.30)
[2018-09-11 04:29] LABS: Anion Gap 7 mmol/L (6-16); Blood Urea Nitrogen 31 mg/dL (8-24); Bun/Creatinine Ratio 34.3 (12.0-20.0); CO2, Blood 28 mmol/L (21-32); Calcium, Blood 8.4 mg/dL (8.5-10.1); Chloride, Blood 95 mmol/L (98-108); Glomerular Filtration Rate >60 (60-); Glucose, Blood 99 mg/dL (70-99); Potassium, Blood 5.2 mmol/L (3.5-5.5); Sodium, Blood 130 mmol/L (136-145)
--- NOTE | 2018-09-11 07:32 | NUR ---
SHIFT SUMMARY- PT HAS REMAINED AOX4 THROUGHOUT SHIFT. VSS. PLEASANT AND COOPERATIVE WITH CARE. O2 SATS HAVE REMAINED >90% ON AIRVO WITH SETTINGS OF 50L AND 54-56% FIO2. PT CONTINUES TO AMBULATE WITH ONE PERSON ASSIST TO BEDSIDE COMMODE WITH MINIMAL DIFFICULTY. PT IS DYSPNEIC ON EXERTION, BUT SATURATIONS DO NOT SIGNIFICANTLY DECREASE- NOTED DROP TO 88-89% WITH EXERTION, RECOVERS QUICKLY WIHTIN 2 MINUTES OF REST. PT REQUIRES SOME ENCOURAGEMENT AND REMINDERS TO BREATH THROUGH HIS NOSE TO RECEIVE MAXIMUM BENEFITS FROM OXYGEN THERAPY. FAMILY HAS REMAINED AT BEDSIDE THROUGHOUT THE NIGHT. PT CONTINUES TO HAVE HARSH, BARKY COUGH OCCASIONALLY- NO SPUTUM PRODUCTION VISUALIZED BY THIS RN, BUT PT REPORTS THAT HE HAS COUGHED UP "SOME GUNK". NO OTHER CHANGES NOTED FROM INITIAL ASSESSMENT. WILL CONINUE TO MONITOR AND REPORT TO ONCOMING SHIFT RN. BED IN LOW POSITION, CALL LIGHT IN REACH.
--- NOTE | 2018-09-11 19:36 | NUR ---
SHIFT SUMMARY PT RESTING IN BED THROUGHOUT THE DAY. VSS. ALERT AND ORIENTED X3. LUNG SOUNDS COARSE THROUGHOUT, AFIB WITH PVCs ON TELEMETRY RATE 70s-90s. VOIDING PER URINAL. TOLERATING AIRVO WELL, 50L / FiO2 48%. WILL CONTINUE TO MONITOR.
--- NOTE | 2018-09-12 06:27 | NUR ---
SHIFT SUMMARY- PT HAS REMAINED AOX4 THROUGHOUT SHIFT, [place], TALKS TO HIMSELF AT BASELINE. VSS. COOPERATIVE WITH CARE. PT CONTINUES TO UTILIZE URINAL AT BEDSIDE FOR URINATION WITH MINIMAL DIFFICULTY. O2 SATS HAVE REMAINED >90% ON AIRVO SETTINGS OF 50 AND 48%FIO2. LUNG SOUNDS REMAINED CLEAR WITH DIMINISHED, WHEEZY BASES. PT DENIES DYSPNEA PT WITH ONE HYPOXIC EPISODE WHEN FOUND TO BE SLEEPING WITH O2 OUT OF NOSTRILS, SATS IN MID 70'S THAT INCREASED TO >90% WITHIN 30 SECONDS OF REPLACING AIRVO TO NOSE. PT SLIGHTLY AGITATED UPON WAKING THIS MORNING AND WILL YELL IN FRUSTRATION AT MACHINES THAT BEEP- PT EDUCATED ON CALLING FOR ASSISTANCE WHEN MACHINES MAKE NOISE IN ORDER FOR STAFF TO ASSESS CAUSE OF BEEPING AND REMEDY THE PROBLEM, PT VERBALIZED UNDERSTANDING. NO OTHER CHANGES NOTED FROM INITIAL ASSESSMENT. WILL CONTINUE TO MONITOR AND REPORT TO ONCOMING SHIFT RN. BED IN LOW POSITION, CALL LIGHT IN REACH.
[2018-09-12 08:17] LABS: BASOPHILS ABSOLUTE AUTO 0.07 K/mm3 (0.00-0.23); BASOPHILS PERCENT AUTO 1 % (0-2); EOSINOPHILS ABSOLUTE AUTO 0.56 K/mm3 (0.00-0.68); EOSINOPHILS PERCENT AUTO 4 % (0-6); Hematocrit 32.8 % (37.0-53.0); Hemoglobin 9.9 g/dL (13.5-17.5); IMMATURE GRAN ABSOLUTE AUTO 0.06 K/mm3 (0.00-0.10); IMMATURE GRAN PERCENT AUTO 0 % (0-1); LYMPHOCYTES ABSOLUTE AUTO 1.91 K/mm3 (0.84-5.20); LYMPHOCYTES PERCENT AUTO 13 % (21-46); MONOCYTES ABSOLUTE AUTO 1.51 K/mm3 (0.16-1.47); MONOCYTES PERCENT AUTO 10 % (4-13); Mean Corpuscular HGB 25.1 pg (26.0-34.0); Mean Corpuscular HGB Conc 30.2 g/dL (31.5-36.5); Mean Corpuscular Volume 83 fL (80-100); Mean Platelet Volume 9.3 fL (9.1-12.4); NEUTROPHILS ABSOLUTE AUTO 10.52 K/mm3 (1.96-9.15); NEUTROPHILS PERCENT AUTO 72 % (41-73); Platelet Count 583 K/mm3 (150-400); Red Blood Cell Count 3.94 M/mm3 (4.30-5.90); White Blood Cell Count 14.63 K/mm3 (4.00-11.30)
[2018-09-12 08:30] LABS: Anion Gap 6 mmol/L (6-16); Blood Urea Nitrogen 26 mg/dL (8-24); Bun/Creatinine Ratio 25.5 (12.0-20.0); CO2, Blood 31 mmol/L (21-32); Calcium, Blood 8.6 mg/dL (8.5-10.1); Chloride, Blood 94 mmol/L (98-108); Creatinine, Blood 1.02 mg/dL (0.60-1.20); Glomerular Filtration Rate >60 (60-); Glucose, Blood 91 mg/dL (70-99); Potassium, Blood 4.8 mmol/L (3.5-5.5); Sodium, Blood 131 mmol/L (136-145)
[2018-09-12 08:32] LABS: Vancomycin, Trough 15.6 ug/mL (5.0-10.0)
--- NOTE | 2018-09-12 18:44 | NUR ---
SHIFT SUMMARY PT RESTING IN BED THROUGHOUT THE DAY. VSS, ON AIRVO 45L FiO2 45% THIS AFTERNOON, OXYGEN SATURATIONS >90%, PT TOLERATING WELL. UP TO BEDSIDE COMMODE AND CHAIR THIS MORNING / AFTERNOON. LUNG SOUNDS COARSE THROUGHOUT, AFIB WITH PVCs ON TELEMETRY. ALERT AND ORIENTED X3, BUT SOMETIMES DIFFICULT TO UNDERSTAND AND SLOW TO RESPOND. FOLLOWS COMMANDS APPROPRIATELY. WILL CONTINUE TO MONITOR.
--- NOTE | 2018-09-13 05:42 | NUR ---
SHIFT SUMMARY- PT HAS REMAINED AOX4 THROUGHOUT SHIFT, CONTINUES TO TALK IN HIS SLEEP AND CALL OUT WHEN MACHINES BEEP. VSS. PLEASANT AND COOPERATIVE WITH CARE. O2 SATS HAVE REMAINED >90% ON AIRVO WITH SETTINGS OF 40L AND 40% FIO2 WHILE AWAKE. PT WAS DESATURATING TO MID 80'S WHEN SLEEPING ON AIRVO AT THESE SETTINGS, FIO2 INCREASED TO 46% WHILE SLEEPING, O2 SATS INCREASED TO >90% WITHIN 30 SECONDS. PT CONTINUES TO USE URINAL IN BED WITHOUT DIFFICULTY. PT WITH ONE 7-BEAT RUN OF V-TACH LAST NIGHT THAT WAS ASSYMPTOMATIC. NO OTHER CHANGES FROM INITIAL ASSESSMENT. WILL CONTINUE TO MONITOR AND REPORT TO ONCOMING SHIFT RN. BED IN LOW POSITION, CALL LIGHT IN REACH.
[2018-09-13 08:21] LABS: BASOPHILS PERCENT AUTO 1 % (0-2); EOSINOPHILS ABSOLUTE AUTO 0.74 K/mm3 (0.00-0.68); EOSINOPHILS PERCENT AUTO 5 % (0-6); Hematocrit 34.9 % (37.0-53.0); Hemoglobin 10.4 g/dL (13.5-17.5); IMMATURE GRAN ABSOLUTE AUTO 0.12 K/mm3 (0.00-0.10); IMMATURE GRAN PERCENT AUTO 1 % (0-1); LYMPHOCYTES ABSOLUTE AUTO 1.96 K/mm3 (0.84-5.20); LYMPHOCYTES PERCENT AUTO 13 % (21-46); MONOCYTES ABSOLUTE AUTO 1.42 K/mm3 (0.16-1.47); MONOCYTES PERCENT AUTO 9 % (4-13); Mean Corpuscular HGB 25.1 pg (26.0-34.0); Mean Corpuscular HGB Conc 29.8 g/dL (31.5-36.5); Mean Corpuscular Volume 84 fL (80-100); Mean Platelet Volume 9.6 fL (9.1-12.4); NEUTROPHILS ABSOLUTE AUTO 11.34 K/mm3 (1.96-9.15); NEUTROPHILS PERCENT AUTO 72 % (41-73); Platelet Count 597 K/mm3 (150-400); RDW Coefficient Variation 15.4 % (11.7-14.2); RDW Standard Deviation 46.5 fL (35.1-46.3); Red Blood Cell Count 4.14 M/mm3 (4.30-5.90); White Blood Cell Count 15.68 K/mm3 (4.00-11.30)
[2018-09-13 08:51] LABS: Vancomycin, Trough 21.2 ug/mL (5.0-10.0)
--- NOTE | 2018-09-13 12:38 | NUR ---
AM NOTE PT UP IN CHAIR AT BEDSIDE ALL MORNING. SR. NO ECTOPY. VSS. PT NEEDING AIRVO TO SUPPORT RESP. STATUS. PT TALKS A LOT. HE TALKS TO HIMSELF AND IN HIS SLEEP. NEEDS REMINDING TO BREATH INSTEAD OF TALK. PT AT BEDSIDE. EATING WELL. PT UPSET ABOUT LASIX. IT MAKES HIM PEE TO MUCH. PT DENIED PAIN OR DISCOMFORT. CONTINIOUS BIOX ON. CONTINUE POT.
[2018-09-13 13:16] LABS: Anion Gap 7 mmol/L (6-16); Blood Urea Nitrogen 26 mg/dL (8-24); Bun/Creatinine Ratio 25.2 (12.0-20.0); CO2, Blood 29 mmol/L (21-32); Calcium, Blood 8.4 mg/dL (8.5-10.1); Chloride, Blood 96 mmol/L (98-108); Creatinine, Blood 1.03 mg/dL (0.60-1.20); Glomerular Filtration Rate >60 (60-); Glucose, Blood 124 mg/dL (70-99); Potassium, Blood 4.7 mmol/L (3.5-5.5); Sodium, Blood 132 mmol/L (136-145)
--- NOTE | 2018-09-13 15:28 | NUR ---
I asked if I could be involved with this patients care on 09/14/18. He said yes.
--- NOTE | 2018-09-13 15:44 | NUR ---
Spiritual care visit conducted. Patient was lying in bed and alert when I entered patient's room. Therapeutic alliance is already established so patient openly shared stories about hunting and fishing, about his family and about his thoughts about rastafarian. I facilitated a life review, explored sources of peace and value, led a discussion about patient's ideas about the afterlife, provided companionship and provided pastoral intellectual property counsel. Patient responded well to all interventions and displayed evidence of greater peace.
--- NOTE | 2018-09-13 17:57 | NUR ---
EVENING NOTE PT ALERT. TALKS CONSTANTLY TO HIMSELF. SR. VSS. PT NEEDS LARGE AMOUNTOF ENCOURAGEMENT TO PARTICIPATE IN HIS THERAPIES. AT HOME HIS WAITS ON HIM HAND AND FOOT. VOIDE FREQUENTLY SMALL AMOUNTS. HE COMPLAINS THAT IT'S TOO OFTEN AND CUSSES ABOUT THE LASIX. HE TALKS TO THE FEMALE THERAPINST AND CALLS THEM NAMES. EATING WELL. CONTINUE POT.
--- NOTE | 2018-09-14 07:34 | NUR ---
SHIFT SUMMARY PATIENT PLEASENT THROUGHOUT THE NIGHT. PATIENT REMAINED ON THE AIRVO THROUGHOUT THE NIGHT. DROPING INTO THE 80'S AT TIMES WHILE HE WAS ASLEEP. PATIENT APPEARED TO NAP ON AND OFF THROUGHOUT THE NIGHT. PATIENT'S VITAL SIGNS CHARTED. IV ABX GIVEN PER ORDERS. PATIENT'S STAYED THE NIGHT AT THE BEDSIDE. REPORT GIVEN TO ONCOMING RN.
--- NOTE | 2018-09-14 11:55 | NUR ---
BEGINNING OF SHIFT AND TRANSFER TO MEDICAL FLOOR Assumed care of pt at 0700. Student nurse, Jessica, also caring for patient. Report recieved from David HOGAN. Pt placed on 8 LPM via high flow NC by respiratory care. Pt was previously on AirVO. Pt tolerated titration well. Pt atrial fibrillation per telemetry with rate in 80s and 90s. Telemetry discontinued as pt was made medical floor status by Dr Wise. Pt further titrated down to 6 LPM NC before transferred to room 324. Pt transferred via wheelchair, accompanied by this RN and student nurse. Medications, chart and belongings transferred with patient. Pt departed from PCU at 1145. Pt's spouse at bedside at time of transfer.
--- NOTE | 2018-09-14 17:48 | NUR ---
PT HAS BEEN AOX4 AND COOPERATIVE OF ALL CARE. PT DOING WELL. NOW DOWN TO 4L OF O2. PT DID WEL WITH PHYSICAL THERAPY AND WORKED WITH A FRONT WHEEL WALKER. PT UP OM CHAIR AND CALLS APPROPRIATELY. NO DISTRESS NOTED.
--- NOTE | 2018-09-15 04:38 | NUR ---
SHIFT SUMMARY A/O, ABLE TO MAKE NEEDS KNOWN. COOPERATIVE WITH CARE. ANSWERS QUESTIONS APPROPRIATELY. NO C/O PAIN/DISCOMFORT. REMAINS ON 3L VIA HIGH FLOW NC; RESPIRATIONS EVEN WITH EQUAL RISE AND FALL. DOES BECOME DYSPNEIC WITH EXERTION. VSS/AFEBRILE. NO ACUTE CHANGES OVERNIGHT. APPEARED TO REST MUCH OF SHIFT. BED IN LOWEST POSITION. CALL LIGHT AND BELONGINGS WITHIN REACH. WCTM. REPORT TO ONCOMING RN.
[2018-09-15 05:28] LABS: BASOPHILS ABSOLUTE AUTO 0.09 K/mm3 (0.00-0.23); BASOPHILS PERCENT AUTO 1 % (0-2); EOSINOPHILS ABSOLUTE AUTO 0.39 K/mm3 (0.00-0.68); EOSINOPHILS PERCENT AUTO 2 % (0-6); Hematocrit 33.4 % (37.0-53.0); Hemoglobin 9.9 g/dL (13.5-17.5); IMMATURE GRAN PERCENT AUTO 1 % (0-1); LYMPHOCYTES ABSOLUTE AUTO 1.79 K/mm3 (0.84-5.20); LYMPHOCYTES PERCENT AUTO 11 % (21-46); MONOCYTES ABSOLUTE AUTO 1.57 K/mm3 (0.16-1.47); MONOCYTES PERCENT AUTO 10 % (4-13); Mean Corpuscular HGB 24.9 pg (26.0-34.0); Mean Corpuscular HGB Conc 29.6 g/dL (31.5-36.5); Mean Corpuscular Volume 84 fL (80-100); Mean Platelet Volume 9.5 fL (9.1-12.4); NEUTROPHILS PERCENT AUTO 76 % (41-73); Platelet Count 612 K/mm3 (150-400); RDW Coefficient Variation 15.3 % (11.7-14.2); RDW Standard Deviation 46.5 fL (35.1-46.3); Red Blood Cell Count 3.97 M/mm3 (4.30-5.90); White Blood Cell Count 16.34 K/mm3 (4.00-11.30)
[2018-09-15 05:51] LABS: Anion Gap 8 mmol/L (6-16); Blood Urea Nitrogen 30 mg/dL (8-24); CO2, Blood 30 mmol/L (21-32); Calcium, Blood 8.5 mg/dL (8.5-10.1); Chloride, Blood 96 mmol/L (98-108); Creatinine, Blood 1.11 mg/dL (0.60-1.20); Glomerular Filtration Rate >60 (60-); Glucose, Blood 92 mg/dL (70-99); Potassium, Blood 4.4 mmol/L (3.5-5.5); Sodium, Blood 134 mmol/L (136-145)
[2018-09-15 14:38] LABS: Vancomycin, Trough 12.6 ug/mL (5.0-10.0)
--- NOTE | 2018-09-15 17:57 | NUR ---
PT AOX4 AND COOPERATIVE OF CARE. PT UP WORKING WITH PT TODAY AND IS NOW ON ROOM AIR. CALLS APPROPRIATELY. PT IS AN STANDBY TO RESTROOM AND DOES VERY WELL WITH FRONT WHEEL WALKER. PT DOES GET SOB ON EXCERTION, BUT IT IS MILD AND HE CAN MAINTAIN A NICE STEADY PACE WITHOUT FEELING WEAK. WILL CONTINUE TO MONITOR.
--- NOTE | 2018-09-16 04:23 | NUR ---
SHIFT SUMMARY: PT IS ALERT AND ORIENTED. PT IS CALM AND COOPERATIVE WITH CARE. PT CALLS APPROPRIATELY. PT IS A ONE PERSON ASSIST WITH FWW. PT SLEPT INTERMITTENTLY THROUGHOUT THE NIGHT. PT REQUESTED SNACKS ON SEVERAL OCCASIONS, GIVEN. PT DENIES PAIN, NAUSEA, VOMITING, AND SOB. NO ACUTE CHANGES OR COMPLICATIONS THIS SHIFT. BED IN LOW POSITION, CALL LIGHT WITHIN REACH. WILL REPORT TO DAY NURSE.
[2018-09-16 05:46] LABS: Alanine Aminotransfer (ALT/SGP 102 U/L (12-78); Albumin, Blood 2.6 g/dL (3.4-5.0); Albumin/Globulin Ratio 0.7 (0.8-1.8); Alk Phos 97 U/L (50-136); Anion Gap 10 mmol/L (6-16); Aspartate Aminotrans (AST/SGOT 23 U/L (12-37); Bilirubin, Total 0.4 mg/dL (0.1-1.0); Blood Urea Nitrogen 31 mg/dL (8-24); Bun/Creatinine Ratio 28.4 (12.0-20.0); CO2, Blood 28 mmol/L (21-32); Calcium, Blood 8.5 mg/dL (8.5-10.1); Chloride, Blood 98 mmol/L (98-108); Creatinine, Blood 1.09 mg/dL (0.60-1.20); Globulin, Blood 3.8 g/dL (2.2-4.0); Glomerular Filtration Rate >60 (60-); Glucose, Blood 97 mg/dL (70-99); Potassium, Blood 4.3 mmol/L (3.5-5.5); Sodium, Blood 136 mmol/L (136-145); Total Protein, Blood 6.4 g/dL (6.4-8.2)
--- NOTE | 2018-09-17 04:37 | NUR ---
SHIFT SUMMARY PT HAS RESTED MOST OF THE NIGHT. HE IS ANXIOUS TO BE DC, AND IS HOPING HE WILL BE TODAY. HE HAS DONE WELL OVERNIGHT. LUNGS DIMINISHED T/O, HE DENIES SOB. 1L O2 IN PLACE. WILL ATTEMPT TO WEAN O2 THIS AM PER DR. NOGUEIRA REQUEST. VITALS STABLE. IV ABX PER ORDERS. PT DENIES PAIN. WILL CONTINUE TO MONITOR AND REPORT TO ONCOMING RN.
[2018-09-17 05:24] LABS: BASOPHILS ABSOLUTE AUTO 0.09 K/mm3 (0.00-0.23); BASOPHILS PERCENT AUTO 1 % (0-2); EOSINOPHILS ABSOLUTE AUTO 1.05 K/mm3 (0.00-0.68); EOSINOPHILS PERCENT AUTO 7 % (0-6); Hematocrit 34.2 % (37.0-53.0); Hemoglobin 10.2 g/dL (13.5-17.5); IMMATURE GRAN ABSOLUTE AUTO 0.15 K/mm3 (0.00-0.10); IMMATURE GRAN PERCENT AUTO 1 % (0-1); LYMPHOCYTES ABSOLUTE AUTO 2.46 K/mm3 (0.84-5.20); LYMPHOCYTES PERCENT AUTO 16 % (21-46); MONOCYTES ABSOLUTE AUTO 1.72 K/mm3 (0.16-1.47); MONOCYTES PERCENT AUTO 11 % (4-13); Mean Corpuscular HGB 25.3 pg (26.0-34.0); Mean Corpuscular HGB Conc 29.8 g/dL (31.5-36.5); Mean Corpuscular Volume 85 fL (80-100); Mean Platelet Volume 9.2 fL (9.1-12.4); NEUTROPHILS ABSOLUTE AUTO 10.45 K/mm3 (1.96-9.15); NEUTROPHILS PERCENT AUTO 66 % (41-73); Platelet Count 614 K/mm3 (150-400); RDW Coefficient Variation 15.7 % (11.7-14.2); RDW Standard Deviation 48.3 fL (35.1-46.3); Red Blood Cell Count 4.03 M/mm3 (4.30-5.90); White Blood Cell Count 15.92 K/mm3 (4.00-11.30)
[2018-09-17 05:48] LABS: Bun/Creatinine Ratio 23.2 (12.0-20.0); Calcium, Blood 8.5 mg/dL (8.5-10.1); Creatinine, Blood 1.25 mg/dL (0.60-1.20); Potassium, Blood 4.6 mmol/L (3.5-5.5)
--- NOTE | 2018-09-17 06:21 | NUR ---
PT WEANED TO RA FROM 1L HE DID NOT TOLERATE AND WAS SATING IN THE UPPER 80'S. PLACED O2 BACK ON AND DECREASED FROM 1L TO 0.5 L. PT O2 SATS AT 93% AT THIS TIME AND HE IS TOLERATING.
[2018-09-17] MEDS ORDERED: DELTASONE20 MG PO (12:05)
[2018-09-17] MEDS ORDERED: LEVFLO500 PO (12:06)
--- NOTE | 2018-09-17 13:00 | NUR ---
DISCHARGE SUMMARY PATIENT DISCHARGED. INSTRUCTIONS GIVEN. NO ACUTE CONCERNS PER PATIENT. ALL MEDICATIONS SENT TO THE PHARMACY. PATIENT GIVEN EVERYTHING HE NEEDS. WHEELED OUT BY RADIO FREQUENCY TECHNICIAN.
== END 2018-09-17 13:03 | disposition home or self-care (01) | DRG 871 ==
LOC: ER 10:05 → ERHOLD 14:17 → PCU 09-08 00:45 → MEDS 09-14 11:45 → ENPENDDIS 09-17 10:29 → MEDS 09-17 13:03
PROVIDERS: Emergency Medicine; Hospitalist; Nurse Practitioner Acute Care; ADMIT Internal Medicine
DX: A41.9 Sepsis, unspecified organism (principal); J18.9 Pneumonia, unspecified organism; J96.01 Acute respiratory failure with hypoxia; E87.1 Hypo-osmolality and hyponatremia; N40.0 Benign prostatic hyperplasia without lower urinary tract symptoms; D64.9 Anemia, unspecified; I48.91 Unspecified atrial fibrillation; E07.9 Disorder of thyroid, unspecified; R65.20 Severe sepsis without septic shock; I10 Essential (primary) hypertension; K21.9 Gastro-esophageal reflux disease without esophagitis; Z66 Do not resuscitate; E66.9 Obesity, unspecified; Z68.27 Body mass index [BMI] 27.0-27.9, adult; Z79.82 Long term (current) use of aspirin; Z79.899 Other long term (current) drug therapy; Z87.891 Personal history of nicotine dependence
CPT/HCPCS: 36415; 36600; 71046; 71260; 80048; 80053; 80202; 81001; 82803; 82947; 83605; 83735; 83880; 84145; 84439; 84443; 84481; 84484; 85025; 87040; 87449; 87486; 87581; 87633; 87798; 87804; 93005; 93010; 93306; 94640; 94660; 94760; 94761; 94762; 96365-59; 96375-59; 97110; 97116; 97162; 97166; 97530; 97535; 99285-25; J0456; J0696; J1940; J2543; J3370; J7050; Q9967

== ENCOUNTER 2018-11-13 12:04 | Observation (INO) | payer MEDICARE ==
[~2018-11-13] VITALS: Ht 177.8 cm; Wt 90.7 kg
[~2018-11-13 12:04] MED LIST changes: +**INCOMPLETE MED REC; +ALBU90OI INH; +DELTASONE20 MG PO; +FAMO20 PO; +FLUT1DIS2 INH; +Lopressor 25 mg25 MG PO; +Micro-K10 MEQ PO; +TAMS.4ER PO
[2018-11-13 12:37] LABS: PCO2 Arterial 38.1 mmHg (35-45); PO2 Arterial 135 mmHg (80-100); pH Blood Arterial 7.38 (7.35-7.45)
[2018-11-13 12:47] LABS: BASOPHILS ABSOLUTE AUTO 0.07 K/mm3 (0.00-0.23); BASOPHILS PERCENT AUTO 1 % (0-2); EOSINOPHILS ABSOLUTE AUTO 0.78 K/mm3 (0.00-0.68); EOSINOPHILS PERCENT AUTO 7 % (0-6); Hematocrit 32.7 % (37.0-53.0); Hemoglobin 9.7 g/dL (13.5-17.5); IMMATURE GRAN ABSOLUTE AUTO 0.07 K/mm3 (0.00-0.10); IMMATURE GRAN PERCENT AUTO 1 % (0-1); LYMPHOCYTES ABSOLUTE AUTO 1.57 K/mm3 (0.84-5.20); LYMPHOCYTES PERCENT AUTO 13 % (21-46); MONOCYTES ABSOLUTE AUTO 1.17 K/mm3 (0.16-1.47); MONOCYTES PERCENT AUTO 10 % (4-13); Mean Corpuscular HGB Conc 29.7 g/dL (31.5-36.5); Mean Corpuscular Volume 84 fL (80-100); Mean Platelet Volume 10.3 fL (9.1-12.4); NEUTROPHILS ABSOLUTE AUTO 8.27 K/mm3 (1.96-9.15); NEUTROPHILS PERCENT AUTO 69 % (41-73); Platelet Count 304 K/mm3 (150-400); RDW Coefficient Variation 17.9 % (11.7-14.2); RDW Standard Deviation 54.2 fL (35.1-46.3); Red Blood Cell Count 3.88 M/mm3 (4.30-5.90); White Blood Cell Count 11.93 K/mm3 (4.00-11.30)
[2018-11-13 13:04] LABS: Alanine Aminotransfer (ALT/SGP 16 U/L (12-78); Albumin, Blood 3.1 g/dL (3.4-5.0); Albumin/Globulin Ratio 0.7 (0.8-1.8); Alk Phos 92 U/L (50-136); Anion Gap 7 mmol/L (6-16); Aspartate Aminotrans (AST/SGOT 10 U/L (12-37); Bilirubin, Total 0.7 mg/dL (0.1-1.0); Blood Urea Nitrogen 15 mg/dL (8-24); Bun/Creatinine Ratio 14.2 (12.0-20.0); CO2, Blood 26 mmol/L (21-32); Calcium, Blood 8.4 mg/dL (8.5-10.1); Chloride, Blood 100 mmol/L (98-108); Creatinine, Blood 1.06 mg/dL (0.60-1.20); Globulin, Blood 4.6 g/dL (2.2-4.0); Glomerular Filtration Rate >60 (60-); Glucose, Blood 113 mg/dL (70-99); Potassium, Blood 3.8 mmol/L (3.5-5.5); Sodium, Blood 133 mmol/L (136-145); Total Protein, Blood 7.7 g/dL (6.4-8.2); Troponin I <0.015 ng/mL (0.000-0.040)
[2018-11-13] MEDS ORDERED: FURO20 PO (16:12)
[2018-11-13] MEDS ORDERED: Aspirin EC81 MG PO (16:14)
[2018-11-13] MEDS ORDERED: OMEPRAZOLE20 MG PO (16:16)
[2018-11-14 05:41] LABS: Alanine Aminotransfer (ALT/SGP 15 U/L (12-78); Albumin, Blood 2.7 g/dL (3.4-5.0); Albumin/Globulin Ratio 0.6 (0.8-1.8); Alk Phos 83 U/L (50-136); Anion Gap 7 mmol/L (6-16); Aspartate Aminotrans (AST/SGOT 10 U/L (12-37); Bilirubin, Total 0.5 mg/dL (0.1-1.0); Blood Urea Nitrogen 16 mg/dL (8-24); Bun/Creatinine Ratio 17.5 (12.0-20.0); CO2, Blood 25 mmol/L (21-32); Calcium, Blood 8.2 mg/dL (8.5-10.1); Chloride, Blood 101 mmol/L (98-108); Creatinine, Blood 0.91 mg/dL (0.60-1.20); Globulin, Blood 4.4 g/dL (2.2-4.0); Glomerular Filtration Rate >60 (60-); Glucose, Blood 122 mg/dL (70-99); Potassium, Blood 4.4 mmol/L (3.5-5.5); Sodium, Blood 133 mmol/L (136-145); Total Protein, Blood 7.1 g/dL (6.4-8.2)
--- NOTE | 2018-11-14 06:52 | NUR ---
11/14/18 0600 VITALS STABLE. PT SLEPT WELL THIS SHIFT AFTER ADMISSION PROCESS. PT UNABLE TO REMEMBER HIS MEDS OR WHICH PHARMACY HE USES. TO COME THIS AM AND NIGHT RN WILL NOTIFY DAY SHIFT RN TO VERIFY HOMES MEDS WITH HER. PT USES URINAL WITH SOME ASSISTENCE.
--- NOTE | 2018-11-14 17:54 | NUR ---
PT AOX4 AND COOPERATIVE OF CARE. PT'S LS ARE MOSTLY CLEAR, BUT DIMINISHED IN BASES. PT WILL APPEAR SOB, BUT O2 SAT 95-98%. PT ONLY TREATED IN THE AM FOR PAIN PER EMAR. NO DISTRESS NOTED AND REQUEST A LOT OF FLUIDS TO DRINK. PT UP WITH PHYSICAL THERAPY AND SAT UP IN CHAIR. WILL CONTINUE TO MONITOR.
--- NOTE | 2018-11-15 07:34 | NUR ---
stew, a+o, call light in reach, 4L via nc, saline locked, walking rounds completed with day shift
[2018-11-15] MEDS ORDERED: ALBU3IS INH (13:09)
[2018-11-15] MEDS ORDERED: Milk Of Ma400 MG/5 M PO (13:13)
[2018-11-15] MEDS ORDERED: LEVOFLOXACIN750 MG PO (13:14)
[2018-11-15] MEDS ORDERED: OMEPRAZOLE20 MG PO (13:14)
--- NOTE | 2018-11-15 15:37 | NUR ---
discharge PT OOB IN CHAIR FOR BF THIS AM. STATE CONTINUING WEAKNESS HOWEVER FEELING IMPROVED. DR FERREIRA IN TO SEE HIM STATE OK TO GO HOME TODAY, PLACE D/C HOME ORDERS. PT CALLED STATE SHE WILL BE IN TO PICK HIM UP APPROX [phone]. IV D/C INTACT. PT ASSISTED TO DRESS/GATHER BELONGINGS. CATTLE STICKER COMPLETE D/C PACKET & REVIEW INSTRUCT WITH PT & FAMILY. W/C ESCORT FROM HOSP PROVIDED.
== END 2018-11-15 15:00 | disposition home or self-care (01) ==
LOC: ER 12:04 → MEDS 12:05 → ENPENDDIS 11-15 11:05 → MEDS 11-15 15:00
PROVIDERS: Physician Assistant; ADMIT Hospitalist
DX: J96.01 Acute respiratory failure with hypoxia (principal); J18.1 Lobar pneumonia, unspecified organism; I48.91 Unspecified atrial fibrillation; J45.909 Unspecified asthma, uncomplicated; I10 Essential (primary) hypertension; K21.9 Gastro-esophageal reflux disease without esophagitis; E87.1 Hypo-osmolality and hyponatremia; E05.90 Thyrotoxicosis, unspecified without thyrotoxic crisis or storm; G43.909 Migraine, unspecified, not intractable, without status migrainosus; N40.0 Benign prostatic hyperplasia without lower urinary tract symptoms; Z79.899 Other long term (current) drug therapy; Z79.52 Long term (current) use of systemic steroids; Z87.891 Personal history of nicotine dependence
CPT/HCPCS: 36415; 36600; 71045; 74177; 80053; 82803; 83605; 83690; 83880; 84145; 84484; 85025; 93005; 93010; 94640; 94760; 96365-59; 96366; 96367; 96372; 96372-59; 96375; 97110; 97162; 97165; 97530; 97535; 99285-25; G0378; J0456; J0696; J1650; J2405; J3010; J7050; Q9967

== ENCOUNTER 2018-11-23 13:51 | Inpatient (IN) | payer MEDICARE, OTHER ==
[~2018-11-23] VITALS: Ht 182.9 cm; Wt 102.1 kg
[~2018-11-23 13:51] MED LIST changes: +ALBU3IS INH; +Aspirin EC81 MG PO; +FURO20 PO; +LEVOFLOXACIN750 MG PO; +Milk Of Ma400 MG/5 M PO; +OMEPRAZOLE20 MG PO
[2018-11-23 14:32] LABS: BASOPHILS ABSOLUTE AUTO 0.05 K/mm3 (0.00-0.23); BASOPHILS PERCENT AUTO 0 % (0-2); EOSINOPHILS ABSOLUTE AUTO 0.32 K/mm3 (0.00-0.68); EOSINOPHILS PERCENT AUTO 3 % (0-6); Hematocrit 30.3 % (37.0-53.0); IMMATURE GRAN ABSOLUTE AUTO 0.08 K/mm3 (0.00-0.10); IMMATURE GRAN PERCENT AUTO 1 % (0-1); LYMPHOCYTES ABSOLUTE AUTO 1.24 K/mm3 (0.84-5.20); LYMPHOCYTES PERCENT AUTO 10 % (21-46); MONOCYTES ABSOLUTE AUTO 1.85 K/mm3 (0.16-1.47); MONOCYTES PERCENT AUTO 15 % (4-13); Mean Corpuscular HGB 24.7 pg (26.0-34.0); Mean Corpuscular HGB Conc 29.7 g/dL (31.5-36.5); Mean Corpuscular Volume 83 fL (80-100); Mean Platelet Volume 9.6 fL (9.1-12.4); NEUTROPHILS ABSOLUTE AUTO 8.69 K/mm3 (1.96-9.15); NEUTROPHILS PERCENT AUTO 71 % (41-73); Platelet Count 530 K/mm3 (150-400); RDW Coefficient Variation 17.2 % (11.7-14.2); RDW Standard Deviation 52.9 fL (35.1-46.3); Red Blood Cell Count 3.64 M/mm3 (4.30-5.90); White Blood Cell Count 12.23 K/mm3 (4.00-11.30)
[2018-11-23 14:47] LABS: Alanine Aminotransfer (ALT/SGP 25 U/L (12-78); Albumin, Blood 2.9 g/dL (3.4-5.0); Albumin/Globulin Ratio 0.6 (0.8-1.8); Alk Phos 137 U/L (50-136); Anion Gap 7 mmol/L (6-16); Aspartate Aminotrans (AST/SGOT 29 U/L (12-37); Bilirubin, Total 0.4 mg/dL (0.1-1.0); Blood Urea Nitrogen 23 mg/dL (8-24); Bun/Creatinine Ratio 21.5 (12.0-20.0); CO2, Blood 25 mmol/L (21-32); Calcium, Blood 8.4 mg/dL (8.5-10.1); Chloride, Blood 95 mmol/L (98-108); Creatinine, Blood 1.07 mg/dL (0.60-1.20); Glomerular Filtration Rate >60 (60-); Glucose, Blood 104 mg/dL (70-99); Potassium, Blood 4.8 mmol/L (3.5-5.5); Sodium, Blood 127 mmol/L (136-145); Total Protein, Blood 7.9 g/dL (6.4-8.2); Troponin I <0.015 ng/mL (0.000-0.040)
[2018-11-23] MEDS ORDERED: FINA5 PO (16:03)
[2018-11-24 04:14] LABS: BASOPHILS ABSOLUTE AUTO 0.04 K/mm3 (0.00-0.23); BASOPHILS PERCENT AUTO 0 % (0-2); EOSINOPHILS ABSOLUTE AUTO 0.14 K/mm3 (0.00-0.68); EOSINOPHILS PERCENT AUTO 1 % (0-6); Hematocrit 28.8 % (37.0-53.0); Hemoglobin 8.7 g/dL (13.5-17.5); IMMATURE GRAN ABSOLUTE AUTO 0.05 K/mm3 (0.00-0.10); IMMATURE GRAN PERCENT AUTO 0 % (0-1); LYMPHOCYTES PERCENT AUTO 11 % (21-46); MONOCYTES ABSOLUTE AUTO 1.79 K/mm3 (0.16-1.47); MONOCYTES PERCENT AUTO 15 % (4-13); Mean Corpuscular HGB Conc 30.2 g/dL (31.5-36.5); Mean Corpuscular Volume 83 fL (80-100); Mean Platelet Volume 9.6 fL (9.1-12.4); NEUTROPHILS ABSOLUTE AUTO 8.33 K/mm3 (1.96-9.15); NEUTROPHILS PERCENT AUTO 72 % (41-73); Platelet Count 462 K/mm3 (150-400); RDW Coefficient Variation 17.2 % (11.7-14.2); Red Blood Cell Count 3.48 M/mm3 (4.30-5.90); White Blood Cell Count 11.65 K/mm3 (4.00-11.30)
[2018-11-24 04:34] LABS: Alanine Aminotransfer (ALT/SGP 24 U/L (12-78); Albumin, Blood 2.8 g/dL (3.4-5.0); Albumin/Globulin Ratio 0.6 (0.8-1.8); Alk Phos 129 U/L (50-136); Anion Gap 5 mmol/L (6-16); Aspartate Aminotrans (AST/SGOT 15 U/L (12-37); Bilirubin, Total 0.5 mg/dL (0.1-1.0); Blood Urea Nitrogen 26 mg/dL (8-24); Bun/Creatinine Ratio 22.6 (12.0-20.0); CO2, Blood 26 mmol/L (21-32); Calcium, Blood 8.3 mg/dL (8.5-10.1); Chloride, Blood 95 mmol/L (98-108); Creatinine, Blood 1.15 mg/dL (0.60-1.20); Globulin, Blood 4.8 g/dL (2.2-4.0); Glomerular Filtration Rate >60 (60-); Glucose, Blood 110 mg/dL (70-99); Magnesium, Blood 2.1 mg/dL (1.6-2.4); Potassium, Blood 4.9 mmol/L (3.5-5.5); Sodium, Blood 126 mmol/L (136-145); Total Protein, Blood 7.6 g/dL (6.4-8.2)
[2018-11-24 11:36] LABS: C-REACTIVE PROTEIN, EXT RANGE 14.1 mg/dL (0.000-0.300)
[2018-11-24 11:37] LABS: Thyroid Stimulating Hormone 2.81 uIU/mL (0.360-4.800)
[2018-11-24 17:35] LABS: PCO2 Arterial 37.9 mmHg (35-45); PO2 Arterial 77.4 mmHg (80-100)
[2018-11-24 18:19] LABS: Hemoglobin 9.4 g/dL (13.5-17.5)
[2018-11-24 18:43] LABS: Automated BF RBC Count 0.575 M/mm3 (0-0); Automated BF WBC Count 1.563 K/mm3 (0-999); Body Fluid WBC Count 1563 /mm3 (0-999); RBC Count, Body Fluid 575000 /mm3 (0-0)
[2018-11-24 18:54] LABS: Glucose, Body Fluid 84 mg/dL; Protein, Body Fluid 5.4 g/dL
[2018-11-24 19:27] LABS: Color, Body Fluid Red (None-Yellow); Total Cell Count, Body Fluid 100
[2018-11-24 19:28] LABS: Appearance, Body Fluid Bloody (Clear)
[2018-11-24 22:07] LABS: BASOPHILS ABSOLUTE AUTO 0.05 K/mm3 (0.00-0.23); BASOPHILS PERCENT AUTO 0 % (0-2); EOSINOPHILS ABSOLUTE AUTO 0.08 K/mm3 (0.00-0.68); EOSINOPHILS PERCENT AUTO 1 % (0-6); Hematocrit 29.1 % (37.0-53.0); Hemoglobin 8.8 g/dL (13.5-17.5); IMMATURE GRAN ABSOLUTE AUTO 0.07 K/mm3 (0.00-0.10); IMMATURE GRAN PERCENT AUTO 1 % (0-1); LYMPHOCYTES ABSOLUTE AUTO 0.63 K/mm3 (0.84-5.20); LYMPHOCYTES PERCENT AUTO 5 % (21-46); MONOCYTES ABSOLUTE AUTO 1.67 K/mm3 (0.16-1.47); MONOCYTES PERCENT AUTO 12 % (4-13); Mean Corpuscular HGB 25.2 pg (26.0-34.0); Mean Corpuscular HGB Conc 30.2 g/dL (31.5-36.5); Mean Corpuscular Volume 83 fL (80-100); Mean Platelet Volume 9.2 fL (9.1-12.4); NEUTROPHILS ABSOLUTE AUTO 11.16 K/mm3 (1.96-9.15); NEUTROPHILS PERCENT AUTO 82 % (41-73); Platelet Count 523 K/mm3 (150-400); RDW Coefficient Variation 17.2 % (11.7-14.2); RDW Standard Deviation 52.5 fL (35.1-46.3); Red Blood Cell Count 3.49 M/mm3 (4.30-5.90); White Blood Cell Count 13.66 K/mm3 (4.00-11.30)
[2018-11-24 22:39] LABS: PCO2 Arterial 40.1 mmHg (35-45)
[2018-11-25 05:01] LABS: Adenovirus Not Detected (NOT DETECT); Bordetella pertussis Not Detected (NOT DETECT); Chlamydophila pneumoniae Not Detected (NOT DETECT); Coronavirus 229E Not Detected (NOT DETECT); Coronavirus HKU1 Not Detected (NOT DETECT); Coronavirus NL63 Not Detected (NOT DETECT); Coronavirus OC43 Not Detected (NOT DETECT); Human Metapneumovirus Not Detected (NOT DETECT); Human Rhinovirus/Enterovirus Not Detected (NOT DETECT); Influenza A Not Detected (NOT DETECT); Influenza A/2009-H1 Not Detected (NOT DETECT); Influenza A/H1 Not Detected (NOT DETECT); Influenza A/H3 Not Detected (NOT DETECT); Influenza B Not Detected (NOT DETECT); Mycoplasma pneumoniae Not Detected (NOT DETECT); Parainfluenza Virus 1 Not Detected (NOT DETECT); Parainfluenza Virus 2 Not Detected (NOT DETECT); Parainfluenza Virus 3 Not Detected (NOT DETECT); Parainfluenza Virus 4 Not Detected (NOT DETECT); Respiratory Syncytial Virus Not Detected (NOT DETECT)
[2018-11-25 08:09] LABS: COMPLEMENT C3, SERUM 162 mg/dL (82-167); COMPLEMENT C4, SERUM 18 mg/dL (14-44)
[2018-11-26 04:19] LABS: BASOPHILS ABSOLUTE AUTO 0.05 K/mm3 (0.00-0.23); BASOPHILS PERCENT AUTO 0 % (0-2); EOSINOPHILS ABSOLUTE AUTO 0.09 K/mm3 (0.00-0.68); EOSINOPHILS PERCENT AUTO 0 % (0-6); Hemoglobin 8.7 g/dL (13.5-17.5); IMMATURE GRAN ABSOLUTE AUTO 0.17 K/mm3 (0.00-0.10); IMMATURE GRAN PERCENT AUTO 1 % (0-1); LYMPHOCYTES ABSOLUTE AUTO 1.35 K/mm3 (0.84-5.20); LYMPHOCYTES PERCENT AUTO 6 % (21-46); MONOCYTES ABSOLUTE AUTO 2.12 K/mm3 (0.16-1.47); MONOCYTES PERCENT AUTO 9 % (4-13); Mean Corpuscular HGB 25.1 pg (26.0-34.0); Mean Corpuscular Volume 84 fL (80-100); Mean Platelet Volume 9.3 fL (9.1-12.4); NEUTROPHILS ABSOLUTE AUTO 20.42 K/mm3 (1.96-9.15); NEUTROPHILS PERCENT AUTO 84 % (41-73); Platelet Count 541 K/mm3 (150-400); RDW Coefficient Variation 17.1 % (11.7-14.2); RDW Standard Deviation 52.3 fL (35.1-46.3); Red Blood Cell Count 3.47 M/mm3 (4.30-5.90)
[2018-11-26 04:36] LABS: Anion Gap 3 mmol/L (6-16); Blood Urea Nitrogen 31 mg/dL (8-24); Bun/Creatinine Ratio 27.7 (12.0-20.0); CO2, Blood 29 mmol/L (21-32); Calcium, Blood 8.3 mg/dL (8.5-10.1); Chloride, Blood 97 mmol/L (98-108); Creatinine, Blood 1.12 mg/dL (0.60-1.20); Glomerular Filtration Rate >60 (60-); Glucose, Blood 107 mg/dL (70-99); Potassium, Blood 5.2 mmol/L (3.5-5.5); Sodium, Blood 129 mmol/L (136-145)
[2018-11-26 13:16] LABS: Vancomycin, Trough 23.4 ug/mL (5.0-10.0)
[2018-11-26 18:05] LABS: ANTI-DSDNA ANTIBODIES <1 IU/mL (0-9); RNP ANTIBODIES <0.2 AI (0.0-0.9); SJOGREN'S ANTI-SS-A 0.5 AI (0.0-0.9); SJOGREN'S ANTI-SS-B <0.2 AI (0.0-0.9); SMITH ANTIBODIES <0.2 AI (0.0-0.9)
[2018-11-27 03:51] LABS: BASOPHILS ABSOLUTE AUTO 0.05 K/mm3 (0.00-0.23); BASOPHILS PERCENT AUTO 0 % (0-2); EOSINOPHILS ABSOLUTE AUTO 0.11 K/mm3 (0.00-0.68); EOSINOPHILS PERCENT AUTO 1 % (0-6); Hematocrit 29.6 % (37.0-53.0); Hemoglobin 8.7 g/dL (13.5-17.5); IMMATURE GRAN ABSOLUTE AUTO 0.11 K/mm3 (0.00-0.10); IMMATURE GRAN PERCENT AUTO 1 % (0-1); LYMPHOCYTES ABSOLUTE AUTO 0.56 K/mm3 (0.84-5.20); LYMPHOCYTES PERCENT AUTO 4 % (21-46); MONOCYTES ABSOLUTE AUTO 0.84 K/mm3 (0.16-1.47); MONOCYTES PERCENT AUTO 6 % (4-13); Mean Corpuscular HGB 24.1 pg (26.0-34.0); Mean Corpuscular HGB Conc 29.4 g/dL (31.5-36.5); Mean Corpuscular Volume 82 fL (80-100); Mean Platelet Volume 9.2 fL (9.1-12.4); NEUTROPHILS ABSOLUTE AUTO 12.07 K/mm3 (1.96-9.15); NEUTROPHILS PERCENT AUTO 88 % (41-73); Platelet Count 661 K/mm3 (150-400); RDW Coefficient Variation 17.2 % (11.7-14.2); Red Blood Cell Count 3.61 M/mm3 (4.30-5.90); White Blood Cell Count 13.74 K/mm3 (4.00-11.30)
[2018-11-27 04:09] LABS: Alanine Aminotransfer (ALT/SGP 62 U/L (12-78); Albumin, Blood 2.3 g/dL (3.4-5.0); Albumin/Globulin Ratio 0.5 (0.8-1.8); Alk Phos 88 U/L (50-136); Anion Gap 4 mmol/L (6-16); Aspartate Aminotrans (AST/SGOT 63 U/L (12-37); Bilirubin, Total 0.3 mg/dL (0.1-1.0); Blood Urea Nitrogen 29 mg/dL (8-24); Bun/Creatinine Ratio 27.6 (12.0-20.0); CO2, Blood 28 mmol/L (21-32); Calcium, Blood 8.4 mg/dL (8.5-10.1); Chloride, Blood 99 mmol/L (98-108); Creatinine, Blood 1.05 mg/dL (0.60-1.20); Globulin, Blood 4.4 g/dL (2.2-4.0); Glomerular Filtration Rate >60 (60-); Glucose, Blood 147 mg/dL (70-99); Potassium, Blood 5.1 mmol/L (3.5-5.5); Sodium, Blood 131 mmol/L (136-145); Total Protein, Blood 6.7 g/dL (6.4-8.2)
[2018-11-28 04:03] LABS: BASOPHILS ABSOLUTE AUTO 0.02 K/mm3 (0.00-0.23); BASOPHILS PERCENT AUTO 0 % (0-2); EOSINOPHILS ABSOLUTE AUTO 0.02 K/mm3 (0.00-0.68); EOSINOPHILS PERCENT AUTO 0 % (0-6); Hematocrit 29.3 % (37.0-53.0); Hemoglobin 8.9 g/dL (13.5-17.5); IMMATURE GRAN ABSOLUTE AUTO 0.12 K/mm3 (0.00-0.10); IMMATURE GRAN PERCENT AUTO 1 % (0-1); LYMPHOCYTES ABSOLUTE AUTO 0.73 K/mm3 (0.84-5.20); LYMPHOCYTES PERCENT AUTO 5 % (21-46); MONOCYTES ABSOLUTE AUTO 1.05 K/mm3 (0.16-1.47); MONOCYTES PERCENT AUTO 7 % (4-13); Mean Corpuscular HGB 24.9 pg (26.0-34.0); Mean Corpuscular HGB Conc 30.4 g/dL (31.5-36.5); Mean Corpuscular Volume 82 fL (80-100); Mean Platelet Volume 9.1 fL (9.1-12.4); NEUTROPHILS ABSOLUTE AUTO 12.92 K/mm3 (1.96-9.15); NEUTROPHILS PERCENT AUTO 87 % (41-73); Platelet Count 685 K/mm3 (150-400); RDW Coefficient Variation 17.1 % (11.7-14.2); RDW Standard Deviation 50.9 fL (35.1-46.3); Red Blood Cell Count 3.57 M/mm3 (4.30-5.90); White Blood Cell Count 14.86 K/mm3 (4.00-11.30)
[2018-11-28 04:21] LABS: Alanine Aminotransfer (ALT/SGP 88 U/L (12-78); Albumin, Blood 2.4 g/dL (3.4-5.0); Albumin/Globulin Ratio 0.6 (0.8-1.8); Alk Phos 90 U/L (50-136); Anion Gap 5 mmol/L (6-16); Aspartate Aminotrans (AST/SGOT 62 U/L (12-37); Bilirubin, Total 0.3 mg/dL (0.1-1.0); Blood Urea Nitrogen 22 mg/dL (8-24); CO2, Blood 30 mmol/L (21-32); Calcium, Blood 8.5 mg/dL (8.5-10.1); Chloride, Blood 100 mmol/L (98-108); Creatinine, Blood 0.96 mg/dL (0.60-1.20); Globulin, Blood 4.3 g/dL (2.2-4.0); Glomerular Filtration Rate >60 (60-); Glucose, Blood 140 mg/dL (70-99); Potassium, Blood 4.7 mmol/L (3.5-5.5); Sodium, Blood 135 mmol/L (136-145); Total Protein, Blood 6.7 g/dL (6.4-8.2)
[2018-11-29 04:52] LABS: BASOPHILS ABSOLUTE AUTO 0.03 K/mm3 (0.00-0.23); BASOPHILS PERCENT AUTO 0 % (0-2); EOSINOPHILS ABSOLUTE AUTO 0.03 K/mm3 (0.00-0.68); EOSINOPHILS PERCENT AUTO 0 % (0-6); Hematocrit 30.7 % (37.0-53.0); Hemoglobin 9.2 g/dL (13.5-17.5); IMMATURE GRAN ABSOLUTE AUTO 0.18 K/mm3 (0.00-0.10); IMMATURE GRAN PERCENT AUTO 1 % (0-1); LYMPHOCYTES ABSOLUTE AUTO 1.19 K/mm3 (0.84-5.20); LYMPHOCYTES PERCENT AUTO 8 % (21-46); MONOCYTES ABSOLUTE AUTO 1.15 K/mm3 (0.16-1.47); MONOCYTES PERCENT AUTO 7 % (4-13); Mean Corpuscular HGB 24.8 pg (26.0-34.0); Mean Corpuscular Volume 83 fL (80-100); Mean Platelet Volume 8.7 fL (9.1-12.4); NEUTROPHILS ABSOLUTE AUTO 13.07 K/mm3 (1.96-9.15); NEUTROPHILS PERCENT AUTO 84 % (41-73); Platelet Count 675 K/mm3 (150-400); RDW Coefficient Variation 17.2 % (11.7-14.2); RDW Standard Deviation 51.6 fL (35.1-46.3); Red Blood Cell Count 3.71 M/mm3 (4.30-5.90); White Blood Cell Count 15.65 K/mm3 (4.00-11.30)
[2018-11-29 05:12] LABS: Alanine Aminotransfer (ALT/SGP 97 U/L (12-78); Albumin, Blood 2.4 g/dL (3.4-5.0); Albumin/Globulin Ratio 0.6 (0.8-1.8); Alk Phos 90 U/L (50-136); Anion Gap 5 mmol/L (6-16); Aspartate Aminotrans (AST/SGOT 48 U/L (12-37); Bilirubin, Total 0.3 mg/dL (0.1-1.0); Blood Urea Nitrogen 26 mg/dL (8-24); Bun/Creatinine Ratio 28.6 (12.0-20.0); CO2, Blood 30 mmol/L (21-32); Calcium, Blood 8.5 mg/dL (8.5-10.1); Chloride, Blood 100 mmol/L (98-108); Creatinine, Blood 0.91 mg/dL (0.60-1.20); Globulin, Blood 4.2 g/dL (2.2-4.0); Glomerular Filtration Rate >60 (60-); Glucose, Blood 121 mg/dL (70-99); Sodium, Blood 135 mmol/L (136-145); Total Protein, Blood 6.6 g/dL (6.4-8.2)
[2018-11-30 05:21] LABS: BASOPHILS ABSOLUTE AUTO 0.08 K/mm3 (0.00-0.23); BASOPHILS PERCENT AUTO 1 % (0-2); EOSINOPHILS ABSOLUTE AUTO 0.87 K/mm3 (0.00-0.68); EOSINOPHILS PERCENT AUTO 7 % (0-6); Hematocrit 30.9 % (37.0-53.0); Hemoglobin 9.1 g/dL (13.5-17.5); IMMATURE GRAN ABSOLUTE AUTO 0.24 K/mm3 (0.00-0.10); IMMATURE GRAN PERCENT AUTO 2 % (0-1); LYMPHOCYTES ABSOLUTE AUTO 2.28 K/mm3 (0.84-5.20); LYMPHOCYTES PERCENT AUTO 17 % (21-46); MONOCYTES ABSOLUTE AUTO 1.36 K/mm3 (0.16-1.47); MONOCYTES PERCENT AUTO 10 % (4-13); Mean Corpuscular HGB 24.5 pg (26.0-34.0); Mean Corpuscular HGB Conc 29.4 g/dL (31.5-36.5); Mean Corpuscular Volume 83 fL (80-100); Mean Platelet Volume 8.8 fL (9.1-12.4); NEUTROPHILS ABSOLUTE AUTO 8.42 K/mm3 (1.96-9.15); NEUTROPHILS PERCENT AUTO 64 % (41-73); Platelet Count 685 K/mm3 (150-400); RDW Coefficient Variation 17.3 % (11.7-14.2); RDW Standard Deviation 53.1 fL (35.1-46.3); Red Blood Cell Count 3.71 M/mm3 (4.30-5.90); White Blood Cell Count 13.25 K/mm3 (4.00-11.30)
[2018-11-30 05:52] LABS: Anion Gap 6 mmol/L (6-16); Blood Urea Nitrogen 29 mg/dL (8-24); Bun/Creatinine Ratio 30.3 (12.0-20.0); CO2, Blood 28 mmol/L (21-32); Chloride, Blood 101 mmol/L (98-108); Creatinine, Blood 0.96 mg/dL (0.60-1.20); Glomerular Filtration Rate >60 (60-); Glucose, Blood 83 mg/dL (70-99); Potassium, Blood 4.7 mmol/L (3.5-5.5); Sodium, Blood 135 mmol/L (136-145)
[2018-11-30] MEDS ORDERED: HYDCOR10 PO (11:57)
[2018-11-30] MEDS ORDERED: LEVFLO500 PO (11:58)
== END 2018-11-30 13:23 | disposition home or self-care (01) | DRG 314 ==
LOC: ER 13:51 → MEDS 16:59 → PCU 16:59 → MEDS 11-28 11:24 → ENPENDDIS 11-30 11:24 → MEDS 11-30 13:23
PROVIDERS: Internal Medicine; Internal Medicine Cardiovascular Disease; Nurse Practitioner Acute Care; Physician Assistant; ADMIT Internal Medicine
PROC: 0W9D30Z Drainage of Pericardial Cavity with Drainage Device, Percutaneous Approach (ICD-10-PCS; principal; 2018-11-24)
DX: I31.3 Pericardial effusion (noninflammatory) (principal); J96.01 Acute respiratory failure with hypoxia; J18.1 Lobar pneumonia, unspecified organism; E87.1 Hypo-osmolality and hyponatremia; E27.40 Unspecified adrenocortical insufficiency; I10 Essential (primary) hypertension; R27.0 Ataxia, unspecified; E05.90 Thyrotoxicosis, unspecified without thyrotoxic crisis or storm; J84.10 Pulmonary fibrosis, unspecified; K21.9 Gastro-esophageal reflux disease without esophagitis; N40.0 Benign prostatic hyperplasia without lower urinary tract symptoms; Z87.891 Personal history of nicotine dependence; I48.0 Paroxysmal atrial fibrillation; J44.9 Chronic obstructive pulmonary disease, unspecified
CPT/HCPCS: 33010; 36415; 36416; 36600; 70450; 71045; 71046; 71250; 76930; 80048; 80053; 80202; 80400; 82024; 82533; 82803; 82945; 83735; 83880; 84145; 84146; 84157; 84443; 84484; 85014; 85018; 85025; 85651; 86140; 86160; 86225; 86235; 86430; 86850; 86900; 86901; 87070; 87205; 87486; 87581; 87633; 87798; 89051; 93005; 93010; 93308; 93321; 94640; 94760; 94762; 96372; 97162; 97530; 99152; 99153; 99285-25; C1769; J0834; J1644; J1650; J1720; J1940; J1956; J2250; J2270; J2543; J2930; J3010; J3370; J7030; J7040; J7050

== ENCOUNTER 2018-12-29 15:50 | Inpatient (IN) | payer MEDICARE, OTHER ==
[~2018-12-29] VITALS: Ht 182.9 cm; Wt 100.5 kg
[~2018-12-29 15:50] MED LIST changes: -ALBU3IS INH; +ALBU90OI61 INH; +HYDCOR10 PO
[2018-12-29 16:15] LABS: BASOPHILS ABSOLUTE AUTO 0.04 K/mm3 (0.00-0.23); BASOPHILS PERCENT AUTO 0 % (0-2); EOSINOPHILS ABSOLUTE AUTO 0.13 K/mm3 (0.00-0.68); EOSINOPHILS PERCENT AUTO 1 % (0-6); Hematocrit 30.9 % (37.0-53.0); Hemoglobin 9.2 g/dL (13.5-17.5); IMMATURE GRAN ABSOLUTE AUTO 0.05 K/mm3 (0.00-0.10); IMMATURE GRAN PERCENT AUTO 0 % (0-1); LYMPHOCYTES ABSOLUTE AUTO 0.78 K/mm3 (0.84-5.20); LYMPHOCYTES PERCENT AUTO 6 % (21-46); MONOCYTES ABSOLUTE AUTO 1.58 K/mm3 (0.16-1.47); MONOCYTES PERCENT AUTO 13 % (4-13); Mean Corpuscular HGB Conc 29.8 g/dL (31.5-36.5); Mean Corpuscular Volume 81 fL (80-100); Mean Platelet Volume 9.3 fL (9.1-12.4); NEUTROPHILS ABSOLUTE AUTO 9.71 K/mm3 (1.96-9.15); NEUTROPHILS PERCENT AUTO 79 % (41-73); Platelet Count 507 K/mm3 (150-400); RDW Coefficient Variation 17.4 % (11.7-14.2); RDW Standard Deviation 51.1 fL (35.1-46.3); Red Blood Cell Count 3.83 M/mm3 (4.30-5.90); White Blood Cell Count 12.29 K/mm3 (4.00-11.30)
[2018-12-29 16:37] LABS: Alanine Aminotransfer (ALT/SGP 16 U/L (12-78); Albumin, Blood 2.8 g/dL (3.4-5.0); Albumin/Globulin Ratio 0.7 (0.8-1.8); Alk Phos 92 U/L (50-136); Anion Gap 9 mmol/L (6-16); Aspartate Aminotrans (AST/SGOT 14 U/L (12-37); Bilirubin, Total 0.5 mg/dL (0.1-1.0); Blood Urea Nitrogen 14 mg/dL (8-24); Bun/Creatinine Ratio 16.3 (12.0-20.0); CO2, Blood 26 mmol/L (21-32); Calcium, Blood 8.2 mg/dL (8.5-10.1); Chloride, Blood 94 mmol/L (98-108); Creatinine, Blood 0.86 mg/dL (0.60-1.20); Globulin, Blood 4.3 g/dL (2.2-4.0); Glomerular Filtration Rate >60 (60-); Glucose, Blood 103 mg/dL (70-99); Potassium, Blood 4.2 mmol/L (3.5-5.5); Sodium, Blood 129 mmol/L (136-145); Total Protein, Blood 7.1 g/dL (6.4-8.2); Troponin I <0.015 ng/mL (0.000-0.040)
[2018-12-29] MEDS ORDERED: Hydrocortisone5 MG PO (18:59)
[2018-12-29] MEDS ORDERED: Lopressor 25 mg25 MG PO (19:01)
--- NOTE | 2018-12-29 22:30 | NUR ---
RECEIVED HAND OFF FROM SAMIRA AQUINO IN ER USING SBAR. TRANSPORTED TO ROOM VIA STRETCHER. TRANSFERED TO BED WITH FULL STAFF ASSISTANCE, TOLERATED WELL. aao X3, MURRAY, FOLLOWS ALL COMMANDS. ORIENTED TO ROOM, CALL SYSTEM, AND POC, VOICES UNDERSTANDING. RESPIRATIONS LABORED ON O2 AT 2L/NC. LUNG SOUNDS CLEAR AND DIMINSHED IN ALL ROMERO. SKIN IS C.D.I. SEVER DRYNESS OTED TO BLE, PT STATES THAT HE HAS "SAND PAPER LEGS". COPERATIVE WITH ASSESSMENT, TOALERATED WELL DENIES OOR TO US ALL. SAFEY MEASURES IN PLACE. WILL CONTINUE TO MONITOR.
[2018-12-30 00:35] LABS: CPK Creatine Kinase 37 U/L (39-308); Troponin I <0.015 ng/mL (0.000-0.040)
[2018-12-30 01:41] LABS: Hematocrit 32.8 % (37.0-53.0); Hemoglobin 9.7 g/dL (13.5-17.5); Mean Corpuscular HGB Conc 29.6 g/dL (31.5-36.5); Mean Corpuscular Volume 81 fL (80-100); Platelet Count 563 K/mm3 (150-400); RDW Coefficient Variation 17.4 % (11.7-14.2); RDW Standard Deviation 51.2 fL (35.1-46.3); Red Blood Cell Count 4.04 M/mm3 (4.30-5.90); White Blood Cell Count 14.55 K/mm3 (4.00-11.30)
[2018-12-30 04:27] LABS: Alanine Aminotransfer (ALT/SGP 12 U/L (12-78); Albumin, Blood 2.8 g/dL (3.4-5.0); Albumin/Globulin Ratio 0.6 (0.8-1.8); Alk Phos 99 U/L (50-136); Anion Gap 9 mmol/L (6-16); Aspartate Aminotrans (AST/SGOT 16 U/L (12-37); Bilirubin, Total 0.4 mg/dL (0.1-1.0); Blood Urea Nitrogen 14 mg/dL (8-24); CO2, Blood 25 mmol/L (21-32); CPK Creatine Kinase 72 U/L (39-308); Calcium, Blood 8.3 mg/dL (8.5-10.1); Chloride, Blood 95 mmol/L (98-108); Creatinine, Blood 0.78 mg/dL (0.60-1.20); Glomerular Filtration Rate >60 (60-); Glucose, Blood 154 mg/dL (70-99); Potassium, Blood 4.2 mmol/L (3.5-5.5); Sodium, Blood 129 mmol/L (136-145); Total Protein, Blood 7.8 g/dL (6.4-8.2); Troponin I <0.015 ng/mL (0.000-0.040)
--- NOTE | 2018-12-30 06:54 | NUR ---
SHIFT SUMMARY DENIES PAIN, BUT HAS CONFUSION BASELINE. DENIES FURHTER NEEDS OR WANTS AT THIS TIME. SAFETY MEASURES IN PLACE. WILL GIVE HAND OFF TO ONCOMING SHIFT USING SBAR.
--- NOTE | 2018-12-30 11:49 | NUR ---
NOTE PT ALERT. BED ALARM ON. PT CHATTERS TO HIMSELF CONSTANTLY. VSS. AFIB. RATE CONTROLLED. URINE OUTPT HAS DECREASED SINCE NIGHT TIME. PT EFFECTIVE AT USING URINAL. PT HAS BEEN CLEARED BY SPEACH THERAPY. HE HAS A ROBUST APPETITE. DENIES DISCOMFORT. CONTINUE POT.
[2018-12-31 03:49] LABS: BASOPHILS ABSOLUTE AUTO 0.03 K/mm3 (0.00-0.23); BASOPHILS PERCENT AUTO 0 % (0-2); EOSINOPHILS ABSOLUTE AUTO 0.05 K/mm3 (0.00-0.68); EOSINOPHILS PERCENT AUTO 0 % (0-6); Hematocrit 31.1 % (37.0-53.0); Hemoglobin 9.1 g/dL (13.5-17.5); IMMATURE GRAN ABSOLUTE AUTO 0.12 K/mm3 (0.00-0.10); IMMATURE GRAN PERCENT AUTO 1 % (0-1); LYMPHOCYTES PERCENT AUTO 6 % (21-46); MONOCYTES ABSOLUTE AUTO 1.96 K/mm3 (0.16-1.47); MONOCYTES PERCENT AUTO 9 % (4-13); Mean Corpuscular HGB Conc 29.3 g/dL (31.5-36.5); Mean Corpuscular Volume 82 fL (80-100); Mean Platelet Volume 9.6 fL (9.1-12.4); NEUTROPHILS ABSOLUTE AUTO 18.82 K/mm3 (1.96-9.15); NEUTROPHILS PERCENT AUTO 84 % (41-73); Platelet Count 596 K/mm3 (150-400); RDW Coefficient Variation 17.6 % (11.7-14.2); RDW Standard Deviation 52.1 fL (35.1-46.3); Red Blood Cell Count 3.79 M/mm3 (4.30-5.90); White Blood Cell Count 22.38 K/mm3 (4.00-11.30)
[2018-12-31 04:07] LABS: Alanine Aminotransfer (ALT/SGP 25 U/L (12-78); Albumin, Blood 2.4 g/dL (3.4-5.0); Albumin/Globulin Ratio 0.6 (0.8-1.8); Alk Phos 87 U/L (50-136); Anion Gap 6 mmol/L (6-16); Aspartate Aminotrans (AST/SGOT 26 U/L (12-37); Bilirubin, Total 0.2 mg/dL (0.1-1.0); Blood Urea Nitrogen 27 mg/dL (8-24); Bun/Creatinine Ratio 28.2 (12.0-20.0); CO2, Blood 32 mmol/L (21-32); Calcium, Blood 8.3 mg/dL (8.5-10.1); Chloride, Blood 95 mmol/L (98-108); Creatinine, Blood 0.96 mg/dL (0.60-1.20); Globulin, Blood 4.2 g/dL (2.2-4.0); Glomerular Filtration Rate >60 (60-); Glucose, Blood 128 mg/dL (70-99); Magnesium, Blood 1.9 mg/dL (1.6-2.4); Potassium, Blood 4.5 mmol/L (3.5-5.5); Sodium, Blood 133 mmol/L (136-145); Total Protein, Blood 6.6 g/dL (6.4-8.2)
--- NOTE | 2018-12-31 07:23 | NUR ---
END OF SHIFT SUMMARY NO ACUTE CHANGES THIS SHIFT. PT HAS REMAINED IN BED. USES URINAL TO VOID. VSS. PT HAS BEEN TALKING TO SELF T/O MAJORITY OF SHIFT, TALKS APPROPRIATELY WITH STAFF. HAS APPEARED TO HAVE HAD SOME SLEEP THIS SHIFT. USES CALL LIGHT. CALL LIGHT WITHIN REACH THIS SHIFT. REPORT GIVEN TO ONCOMING NURSE.
--- NOTE | 2018-12-31 12:33 | NUR ---
NOTE PT ALERT TALKING TO HIMSELF. FAMILY HERE TO VISIT AFTER BREAKFAST. AFIB. VSS. LASIX TX EFFECTIVE. PT VOIDING PER URINAL OF CLEAR, YELLOW URINE. COMPLIANT WITH URINAL USE. DENIES PAIN OR DISCOMFORT. UP TO BSC WITH 2 ASSIST. UNSTEADY. MILD SOB WITH TRANSFER. FAMILY RELATED THAT PT SLEEPS IN A RECLINER SITTING UP. CONTINUE POT.
--- NOTE | 2019-01-01 05:57 | NUR ---
END OF SHIFT SUMMARY NO ACUTE CHANGES THIS SHIFT. VSS. BM X1 LARGE AND FIRM. REDDENED COCCYX NOTICED WHILE UP TO BSC. REDNESS SLOWLY FADES AWAY WIH STANDING. BARRIER CREAM APPLIED PROPHYLACTICALLY. PILLOWS BEING REPOSITONED A FEW TIMES THIS SHIFT UNDERNEATH PT IN ORDER TO SHIFT WEIGHT DISTRIBUTION. PT CONTINUES TO TALK TO HIMSELF T/O THE NIGHT. CALL LIGHT WITHIN REACH. WILL CONTINUE TO MONITOR PT UNTIL SHIFT CHANGE.
--- NOTE | 2019-01-01 10:58 | NUR ---
DR JEAN BAPTISTE TO SEE PATIENT. SHE EXPLAINED AFIB TO THE PATIENT AND STATED THAT SHE WOULD LIKE TO START HIM ON XARELTO. PT EXPRESSED UNDERSTANDING. O2 OFF AT THIS TIME, O2 SAT >95% ON ROOM AIR. WILL CONTINUE MONITORING.
--- NOTE | 2019-01-01 17:37 | NUR ---
PT HAD A GOOD DAY, HE SAT UP IN THE CHAIR FOR THE MORNING THROUGH LUNCH, THEN WAS BACK TO BED FOR A NAP. PT SITTING UP AND EATING HIS DINNER AT THIS TIME. HE HAS CONTINUED TO BE ON ROOM AIR THROUGHOUT THE DAY, NO COMPLAINT OF SHORTNESS OF BREATH. PT USING URINAL. NO COMPLAINTS OF PAIN AT THIS TIME. WILL CONTINUE TO MONITOR AND PREPARE TO GIVE REPORT TO NOC RN. BED LOCKED AND LOW, CALL LIGHT WITHIN EASY REACH.
[2019-01-02 04:00] LABS: BASOPHILS ABSOLUTE AUTO 0.05 K/mm3 (0.00-0.23); BASOPHILS PERCENT AUTO 0 % (0-2); EOSINOPHILS ABSOLUTE AUTO 0.67 K/mm3 (0.00-0.68); EOSINOPHILS PERCENT AUTO 6 % (0-6); Hematocrit 31.2 % (37.0-53.0); Hemoglobin 9.2 g/dL (13.5-17.5); IMMATURE GRAN ABSOLUTE AUTO 0.08 K/mm3 (0.00-0.10); IMMATURE GRAN PERCENT AUTO 1 % (0-1); LYMPHOCYTES PERCENT AUTO 16 % (21-46); MONOCYTES ABSOLUTE AUTO 1.29 K/mm3 (0.16-1.47); MONOCYTES PERCENT AUTO 11 % (4-13); Mean Corpuscular HGB Conc 29.5 g/dL (31.5-36.5); Mean Corpuscular Volume 81 fL (80-100); Mean Platelet Volume 9.3 fL (9.1-12.4); NEUTROPHILS ABSOLUTE AUTO 7.71 K/mm3 (1.96-9.15); NEUTROPHILS PERCENT AUTO 66 % (41-73); Platelet Count 600 K/mm3 (150-400); RDW Coefficient Variation 17.5 % (11.7-14.2); RDW Standard Deviation 51.6 fL (35.1-46.3); Red Blood Cell Count 3.84 M/mm3 (4.30-5.90)
[2019-01-02 04:19] LABS: Alanine Aminotransfer (ALT/SGP 51 U/L (12-78); Albumin, Blood 2.6 g/dL (3.4-5.0); Albumin/Globulin Ratio 0.7 (0.8-1.8); Alk Phos 89 U/L (50-136); Anion Gap 6 mmol/L (6-16); Aspartate Aminotrans (AST/SGOT 33 U/L (12-37); Bilirubin, Total 0.3 mg/dL (0.1-1.0); Blood Urea Nitrogen 28 mg/dL (8-24); Bun/Creatinine Ratio 30.6 (12.0-20.0); CO2, Blood 34 mmol/L (21-32); Calcium, Blood 8.4 mg/dL (8.5-10.1); Chloride, Blood 92 mmol/L (98-108); Creatinine, Blood 0.92 mg/dL (0.60-1.20); Globulin, Blood 3.9 g/dL (2.2-4.0); Glomerular Filtration Rate >60 (60-); Glucose, Blood 89 mg/dL (70-99); Potassium, Blood 4.3 mmol/L (3.5-5.5); Sodium, Blood 132 mmol/L (136-145); Total Protein, Blood 6.5 g/dL (6.4-8.2)
--- NOTE | 2019-01-02 05:21 | NUR ---
END OF SHIFT SUMMARY NO ACUTE CHANGES THIS SHIFT. VSS. PT USES CALL LIGHT APPROPRIATELY. CONTINUES TO USE URINAL T/O NIGHT. BM X 2. PT HAS BEEN RESTING FOR MAJORITY OF SHIFT. EQUAL CHEST RISE. UNLABORED BREATHING. WILL CONTINUE TO MONITOR PT UNTIL SHIFT CHANGE. CALL LIGHT WITHIN REACH.
[2019-01-02] MEDS ORDERED: XARELTO20 MG PO (10:27)
[2019-01-02] MEDS ORDERED: FURO20 PO (10:28)
[2019-01-02] MEDS ORDERED: SPIR25 PO (10:29)
--- NOTE | 2019-01-02 12:21 | NUR ---
PT READY TO DISCHARGE HOME TODAY, CALLED SHE GOING TO COME TO HOSPITAL TO HELP PATIENT GET READY TO GO HOME. PT UP TO CHAIR FOR BREAKFAST, ANXIOUS TO GET DRESSED AND GO HOME. PROVIDED MEDICATIONS AND EDUCATION ORDERED.
== END 2019-01-02 12:05 | disposition home or self-care (01) | DRG 291 ==
LOC: ER 15:50 → PCU 15:51
PROVIDERS: Internal Medicine; Physician Assistant; ADMIT Internal Medicine
DX: I11.0 Hypertensive heart disease with heart failure (principal); J96.01 Acute respiratory failure with hypoxia; I50.41 Acute combined systolic (congestive) and diastolic (congestive) heart failure; E05.90 Thyrotoxicosis, unspecified without thyrotoxic crisis or storm; I48.91 Unspecified atrial fibrillation; J44.9 Chronic obstructive pulmonary disease, unspecified; J84.10 Pulmonary fibrosis, unspecified; K21.9 Gastro-esophageal reflux disease without esophagitis; N40.0 Benign prostatic hyperplasia without lower urinary tract symptoms; G43.909 Migraine, unspecified, not intractable, without status migrainosus; I07.1 Rheumatic tricuspid insufficiency; Z79.82 Long term (current) use of aspirin; Z79.899 Other long term (current) drug therapy; Z89.022 Acquired absence of left finger(s)
CPT/HCPCS: 36415; 71046; 71260; 80053; 82550; 83735; 83880; 84484; 85025; 85027; 92610; 93005; 93010; 93308; 93321; 94640; 94664; 94667; 94760; 96374-59; 98960; 99285-25; J1650; J1940; J2930; Q9967

== ENCOUNTER 2019-06-13 19:28 | Inpatient (IN) | payer MEDICARE, OTHER ==
[~2019-06-13] VITALS: Ht 182.9 cm; Wt 102.6 kg
[~2019-06-13 19:28] MED LIST changes: +Hydrocortisone5 MG PO; +SPIR25 PO; +XARELTO20 MG PO
[2019-06-13 19:55] LABS: BASOPHILS ABSOLUTE AUTO 0.06 K/mm3 (0.00-0.23); BASOPHILS PERCENT AUTO 1 % (0-2); EOSINOPHILS ABSOLUTE AUTO 0.54 K/mm3 (0.00-0.68); EOSINOPHILS PERCENT AUTO 6 % (0-6); Hematocrit 29.1 % (37.0-53.0); Hemoglobin 8.1 g/dL (13.5-17.5); IMMATURE GRAN ABSOLUTE AUTO 0.04 K/mm3 (0.00-0.10); IMMATURE GRAN PERCENT AUTO 1 % (0-1); LYMPHOCYTES ABSOLUTE AUTO 1.36 K/mm3 (0.84-5.20); LYMPHOCYTES PERCENT AUTO 16 % (21-46); MONOCYTES ABSOLUTE AUTO 1.03 K/mm3 (0.16-1.47); MONOCYTES PERCENT AUTO 12 % (4-13); Mean Corpuscular HGB 21.7 pg (26.0-34.0); Mean Corpuscular HGB Conc 27.8 g/dL (31.5-36.5); Mean Corpuscular Volume 78 fL (80-100); Mean Platelet Volume 9.9 fL (9.1-12.4); NEUTROPHILS PERCENT AUTO 64 % (41-73); Platelet Count 326 K/mm3 (150-400); RDW Standard Deviation 55.3 fL (35.1-46.3); Red Blood Cell Count 3.73 M/mm3 (4.30-5.90); White Blood Cell Count 8.43 K/mm3 (4.00-11.30)
[2019-06-13 20:09] LABS: International Normalized Ratio 1.2; Prothrombin Time Results 12.5 Sec (9.7-11.5)
[2019-06-13 20:27] LABS: Troponin I 0.03 ng/mL (0.000-0.040)
[2019-06-13 20:28] LABS: Albumin, Blood 3.3 g/dL (3.4-5.0); Albumin/Globulin Ratio 0.7 (0.8-1.8); Bilirubin, Total 0.4 mg/dL (0.1-1.0); Bun/Creatinine Ratio 15.9 (12.0-20.0); Calcium, Blood 8.8 mg/dL (8.5-10.1); Creatinine, Blood 1.26 mg/dL (0.60-1.20); Globulin, Blood 4.5 g/dL (2.2-4.0); Potassium, Blood 4.4 mmol/L (3.5-5.5); Total Protein, Blood 7.8 g/dL (6.4-8.2)
[2019-06-13] MEDS ORDERED: Hydrocortisone5 MG PO (21:41)
[2019-06-13] MEDS ORDERED: FURO20 PO (22:01)
[2019-06-13] MEDS ORDERED: FLUT1DIS2 INH (22:13)
--- NOTE | 2019-06-13 23:50 | NUR ---
PATIENT RECIEVED FROM ER AT 2350. PT ABLE TO TRANSFER TO BED WITH HELP.
[2019-06-14 04:12] LABS: Hematocrit 29.8 % (37.0-53.0); Hemoglobin 8.3 g/dL (13.5-17.5); Mean Corpuscular HGB 21.6 pg (26.0-34.0); Mean Corpuscular HGB Conc 27.9 g/dL (31.5-36.5); Mean Corpuscular Volume 77 fL (80-100); Mean Platelet Volume 9.5 fL (9.1-12.4); Platelet Count 333 K/mm3 (150-400); RDW Coefficient Variation 19.9 % (11.7-14.2); RDW Standard Deviation 54.9 fL (35.1-46.3); Red Blood Cell Count 3.85 M/mm3 (4.30-5.90); White Blood Cell Count 9.43 K/mm3 (4.00-11.30)
[2019-06-14 04:31] LABS: Bun/Creatinine Ratio 13.7 (12.0-20.0); Calcium, Blood 8.7 mg/dL (8.5-10.1); Creatinine, Blood 1.31 mg/dL (0.60-1.20); Potassium, Blood 4.2 mmol/L (3.5-5.5); Troponin I 0.032 ng/mL (0.000-0.040)
--- NOTE | 2019-06-14 07:30 | NUR ---
ASSUMED CARE OF PATIENT; SEE ASSESSMENT CHARTING FOR DETAILS. PATIENT A/O X4; DENIES ACUTE PAIN. LUNGS WITH SOME COARSE SOUNDS IN UPPER AIRWAYS AND SOME FINE CRACKLES IN RML. OXYGEN AT 2L/MIN VIA NC.; BIOX. GOOD. SBP LABILE; WNL TO MODERATELY HIGH. VOIDS IN URINAL; URINE LT. YELLOW/CLEAR.
--- NOTE | 2019-06-14 08:16 | NUR ---
PATIENT PRESENTS SIGN OF SLEEP APNEA, CPAP USED FOR 2 HOURS THEN PATIENT REMOVED AND REFUSED TO USE IT AGAIN. AWAKE AND READY TO EAT IN AM.
--- NOTE | 2019-06-14 10:30 | NUR ---
DR. VITAL HERE; SEE FURTHER ORDERS. ORDERED CONSULT WITH SPIRITS MODEL, DR. DAVIDSON. RN SPOKE TO DR. DAVIDSON RE: CONSULT.
--- NOTE | 2019-06-14 10:45 | NUR ---
ECHOCARDIOGRAM IN PROGRESS. RN T/C TO DR. VITAL FOR MED. ORDER FOR HEARTBURN; ORDER GIVEN FOR TUMS.
--- NOTE | 2019-06-14 10:50 | NUR ---
TUMS, X 2, GIVEN FOR HEARTBURN PAIN.
--- NOTE | 2019-06-14 11:28 | NUR ---
Echocardiogram completed.
--- NOTE | 2019-06-14 12:00 | NUR ---
TRANSFER CARE TO LIBIA TEIXEIRA RN.
--- NOTE | 2019-06-14 12:28 | NUR ---
PT AWAKE, ALERT, COOPERATIVE. ASSISTED TO REPOSITION IN BED. ABLE TO FEED SELF. CONGESTED PRODUCTIVE COUGH, SWALLOWS SPUTUM. ON MRSA PRECAUTIONS
--- NOTE | 2019-06-14 14:24 | NUR ---
PRECAUTIONS CLEARED BY WALL ATTENDANT. DR. DAVIDSON HERE TO ASSESS PT
--- NOTE | 2019-06-14 16:34 | NUR ---
BATH DONE, PT ASSISTED WITH BATH. UP TO CHAIR-TOLERATED WELL. WATCHING TV
--- NOTE | 2019-06-14 18:07 | NUR ---
PT DIURESING AFTER LASIX. UP IN CHAIR WITHOUT PROBLEMS. EATING, WATCHING TV. CONTINUE TO MONITOR. CONTINOUS OXYGEN MONITOR ON.
--- NOTE | 2019-06-14 18:49 | NUR ---
Spiritual Care inital note: Mr. Ro was alone in room and rather stoic. After rapport established he began to tells me bits and pieces about stress at home. She spoke in stops and starts. He was sometimes difficult to understand. It was obvious to me that this is a man who does not open-up emotionally. He is not mu-ism. As I was getting up to leave, he began to weep. He tried to apologize for his tearfulness and stop, but he continued to burst into tears. He did not want to elablorate as to why, but he allowed me to sit besdie him and hold his hand silently. After a while, his tearfulness stopped. He does not appear to completely understand his dx, and I suspect his medical literacy is quite low. Conferenced with palliative care about this. [facility] services will remain available.
--- NOTE | 2019-06-14 20:10 | NUR ---
PT A/O X4. YELLING OUT IN PAIN FROM MUSCLE SPASMS IN R SIDE. DIFFICULT TO GET PT TO DESCRIBE PAIN BUT STATES IT'S A CRAMPING PAIN. BP IS ALSO ELEVATED CALLED ZACHARY ROONEY WHO ORDERED ONE DOSE OF DILAUDID. TYLENOL WAS ALSO GIVEN. GOT PT BACK TO BED FROM CHAIR MOD 1 PERSON ASSIST. USES CALL LIGHT APPROPRIATELY AND HAS URINALS AT BEDSIDE.
--- NOTE | 2019-06-14 22:32 | NUR ---
PT HAS BEEN HYPERTENSIVE DESPITE METOPROLOL. CALLED AZCHARY ROONEY WHO ORDERED LABETOLOL.
[2019-06-15 04:17] LABS: Albumin, Blood 3.2 g/dL (3.4-5.0); Anion Gap 6 mmol/L (6-16); Blood Urea Nitrogen 25 mg/dL (8-24); Bun/Creatinine Ratio 18.7 (12.0-20.0); CO2, Blood 31 mmol/L (21-32); Calcium, Blood 8.5 mg/dL (8.5-10.1); Chloride, Blood 93 mmol/L (98-108); Creatinine, Blood 1.34 mg/dL (0.60-1.20); Glomerular Filtration Rate 55 (60-); Glucose, Blood 127 mg/dL (70-99); Percent Saturation 5.3 % (20.0-50.0); Phosphorus, Blood 5.1 mg/dL (2.5-4.9); Potassium, Blood 4.1 mmol/L (3.5-5.5); Sodium, Blood 130 mmol/L (136-145)
--- NOTE | 2019-06-15 06:07 | NUR ---
PT RESTING IN BED. NO COMPLAINTS. SITTING UP IN BED EATING A SNACK. PT DID NOT COMPLAIN OF ANY MORE SIDE PAIN AFTER HE GOT DILAUDID ONE TIME. HAD TO GIVE ONE DOSE OF LABETOLOL FOR HTN, AND BP RESPONDED WELL. USING URINAL IN BED INDEP. NO SIGN OF DISTRESS.
--- NOTE | 2019-06-15 07:20 | NUR ---
ASSUMED CARE AT 0700. REPORT FROM NICK HOGAN. PT RESTING IN BED. WAKES c VERBAL STIMULI. A&OX 4. FOLLOWS COMMANDS. DENIES COMPLAINTS. LUNGS COARSE, DIMINISHED IN BASES. PT SPEAKING IN FULL SENTNANCES. PT P/W/D. VSS. 1+ EDEMA TO LOWER LEGS BILATERALLY. WILL CONTINUE TO MONITOR.
--- NOTE | 2019-06-15 10:30 | NUR ---
DR DAVIDSON IN ROOM FOR ASSESSMENT. DAUGHTER AT BEDSIDE. EDUCATED PT AND FAMILY ON CPAP USE AT NIGHT. PT c HX OF CANCELLING TESTS, PT STATES THIS D/T NOT WANTING TO "END UP ON A MASK." SLEEP OXIMETRY ORDERED FOR TONIGHT. O2 REMOVED, PT ON RA. WILL MONITOR FOR SATS >90%.
--- NOTE | 2019-06-15 17:48 | NUR ---
SHIFT SUMMARY PT STATUS CHANGED TO MED s TELE THIS SHIFT. PLAN FOR SLEEP OXIMETRY TONIGHT. PT HAS MAINTAINED SATS >90% ON RA THIS SHIFT. LUNGS IMPROVED, SLIGHTLY COARSE. VSS. PT/OT EVAL THIS SHIFT. CARDIOLOGY CONSULT PENDING. PT STANDBY ASSIST IN ROOM FOR TRANSFERS. PT c GOOD APPETITE THIS SHIFT. REPORT TO MEDICAL FLOOR NURSE.
--- NOTE | 2019-06-15 18:23 | NUR ---
SHIFT SUMMARY PATIENT TO THE FLOOR AT 1758. ALERT AND ORIENTED. VERY PLEASANT. USES URINAL AT THE BEDSIDE. CURRENTLY AWAITING A SLEEP STUDY AND PATIENT IS ON ROOM AIR.
--- NOTE | 2019-06-15 19:55 | NUR ---
ASSUMED CARE OF THE PATIENT. PATIENT SITTING UP IN THE CHAIR WATCHING TV. SON ARRIVED FOR A VISIT. PATIENT DENIED ANY CHEST PAIN AT THIS TIME. SOB ONLY WITH EXERTION. +2 PITTING EDEMA TO BLE. ENCOURAGED TO HAVE ELEVATED. STATES HE WILL BE GETTING INTO BED SOON. HE TRIED DISCUSSING HIS MEDS FROM HOME BUT COULD NOT REMEMBER WHAT HE TAKES. SON SAID THEY ALREADY GOT HIS MEDS FROM HIS MOM. DISCUSSED BETTER MED MANAGEMENT AT HOME. DISCUSSED NEEDS, WILL PROVIDE. CALL LIGHT IN REACH.
--- NOTE | 2019-06-16 00:08 | NUR ---
PATIENT TRANSFERRED TO ROOM 362 FROM 356 DUE TO TELEMETRY WAS NOT GETTING A GOOD ENOUGH READING WHERE HE WAS AT.
--- NOTE | 2019-06-16 05:32 | NUR ---
SHIFT SUMMARY: NAIMA WAS TRANSFERRED TO ROOM 362 FROM 356 DUE TO POOR SIGNAL OF THE TELEMETRY. TELE REPORTS NO CHANGES AFIB THROUGHOUT THE NIGHT. SLEEP STUDY TOOK PLACE BUT NAIMA HAD DIFFICULT TIME SLEEPING. HE REMAINED CHEST PAIN FREE THIS SHIFT. SATS REMAINED IN THE 90'S. NEEDS WERE PROVIDED FOR. MEDS ADMINISTERED PER EMAR. NO ACUTE CHANGES. WILL REPORT OFF.
[2019-06-16 07:21] LABS: Albumin, Blood 3.2 g/dL (3.4-5.0); Anion Gap 3 mmol/L (6-16); Blood Urea Nitrogen 34 mg/dL (8-24); Bun/Creatinine Ratio 23.1 (12.0-20.0); CO2, Blood 33 mmol/L (21-32); Calcium, Blood 8.6 mg/dL (8.5-10.1); Chloride, Blood 95 mmol/L (98-108); Creatinine, Blood 1.47 mg/dL (0.60-1.20); Glomerular Filtration Rate 49 (60-); Glucose, Blood 107 mg/dL (70-99); Phosphorus, Blood 3.8 mg/dL (2.5-4.9); Potassium, Blood 4.3 mmol/L (3.5-5.5); Sodium, Blood 131 mmol/L (136-145)
[2019-06-16] MEDS ORDERED: ASCO500 PO (13:46)
[2019-06-16] MEDS ORDERED: TUMS500 MG PO (13:50)
[2019-06-16] MEDS ORDERED: DOCU100 PO (13:50)
[2019-06-16] MEDS ORDERED: FERSU300 PO (13:50)
[2019-06-16] MEDS ORDERED: LONHALA MA25 MCG/1 M INH (13:52)
--- NOTE | 2019-06-16 15:00 | NUR ---
DISCHARGE NOTE PATIENT DISCHARGED WITH FAMILY. WHEELCHAIRED OUT BY HIS GRANDSON. PATIENT REFUSED TO WEAR OXYGEN OUT OF THE FACILITY AND IN THE CAR. EDUCATED THE FAMILY REGARDING THE NEED TO WEAR OXYGEN. VERBALIZED THEY WOULD START THE OXYGEN AT HOME. AGAIN REEDUCATED ON THE NEED TO WEAR IT OUT OF THE BUILDING, CONTINUED TO REFUSE. IV REMOVED. TELE REMOVED. INSTRUCTED THAT CARE MANAGEMENT WOULD FOLLOW UP WITH HER REGARDING HER FOLLOW UP APPOINTMENT WITH HER PCP. FAXED RX TO [facility], PER THEIR REQUESTS.
== END 2019-06-16 14:42 | disposition home health service (06) | DRG 291 ==
LOC: ER 19:28 → ICUW 19:29 → MEDS 06-14 16:57 → ICUW 06-15 13:11 → MEDS 06-15 17:56 → ENPENDDIS 06-16 12:30 → MEDS 06-16 14:42
PROVIDERS: Emergency Medicine; Internal Medicine; Nurse Practitioner Acute Care; ADMIT Internal Medicine
DX: I11.0 Hypertensive heart disease with heart failure (principal); J96.21 Acute and chronic respiratory failure with hypoxia; E87.1 Hypo-osmolality and hyponatremia; E27.40 Unspecified adrenocortical insufficiency; I50.33 Acute on chronic diastolic (congestive) heart failure; G47.33 Obstructive sleep apnea (adult) (pediatric); J43.9 Emphysema, unspecified; I27.20 Pulmonary hypertension, unspecified; J84.10 Pulmonary fibrosis, unspecified; D50.9 Iron deficiency anemia, unspecified; I48.0 Paroxysmal atrial fibrillation; E05.90 Thyrotoxicosis, unspecified without thyrotoxic crisis or storm; K21.9 Gastro-esophageal reflux disease without esophagitis; I27.81 Cor pulmonale (chronic); N40.1 Benign prostatic hyperplasia with lower urinary tract symptoms; R39.15 Urgency of urination; Z99.81 Dependence on supplemental oxygen; Z87.891 Personal history of nicotine dependence; Z79.82 Long term (current) use of aspirin; Z79.899 Other long term (current) drug therapy
CPT/HCPCS: 36415; 71046; 80048; 80053; 80069; 82728; 83540; 83550; 83880; 84484; 85025; 85027; 85610; 87070; 87205; 93005; 93010; 93306; 94640; 94660; 94761; 96372; 96374; 97162; 97165; 97530; 97535; 99285-25; A9270; G0378; J1170; J1644; J1940

== ENCOUNTER 2019-09-12 06:09 | Day surgery (SDC) | payer MEDICARE ==
[~2019-09-12] VITALS: Ht 175.3 cm; Wt 109.2 kg
[~2019-09-12 06:09] MED LIST changes: +ALDACTONE25 MG PO; +ASCO500 PO; +ELIQUIS5 MG PO; +FERSU300 PO; +Ferrous Sulfat325 M2 PO; +LONHALA MA25 MCG/1 M INH; +TORSE20 PO; +TUMS500 MG PO
--- NOTE | 2019-09-12 07:17 | NUR ---
09/12/19 0717 Soheila Lopez PT WILLOWUHGT TO THE PRE OP ROOM IN WHEELCHAIR. PT SOB AFTER DRESSING AND TRANSFERRING. PT GASPING AND COUGHING. SATS WERE 84-89% UPON ARRIVING TO STEP DOWN. LUNG SOUNDS WERE CONGESTED BILATERALLY. 2L OF O2 APPLIED VIA NASAL CANNULA. PT STATES HE USES OXYGEN "SOMETIMES" AT HOME. STATES HE USES 2-3L AT NIGHT AND OFTEN DURING THE DAY. PT VERY DROWSY AND FALLS ASLEEP BETWEEN SENTENCES. PT STARTLES AWAKE COUGHING AND GASPING FOR BREATH. PULSE OX READING 85% ON 2L OF O2 AT THIS TIME. CHRAGE NURSE NOTIFIED; CHARGE NURSE NOTIFIED ANESTHESIA DR SMITH WHO WILL COME ASSESS THE PT. WARM BLANKETS PROVIDED. CALL LIGHT IN REACH.
== END 2019-09-12 07:58 | disposition home or self-care (01) ==
LOC: ORSCSDS 06:09
DX: E05.10 Thyrotoxicosis with toxic single thyroid nodule without thyrotoxic crisis or storm (principal); Z53.9 Procedure and treatment not carried out, unspecified reason
CPT/HCPCS: J1100; J7120

== ENCOUNTER 2019-09-20 13:44 | Observation (INO) | payer MEDICARE ==
[~2019-09-20] VITALS: Ht 175.3 cm; Wt 105.6 kg
[~2019-09-20 13:44] MED LIST changes: -ELIQUIS5 MG PO; -Ferrous Sulfat325 M2 PO
[2019-09-20 14:21] LABS: BASOPHILS ABSOLUTE AUTO 0.06 K/mm3 (0.00-0.23); BASOPHILS PERCENT AUTO 1 % (0-2); EOSINOPHILS ABSOLUTE AUTO 0.22 K/mm3 (0.00-0.68); EOSINOPHILS PERCENT AUTO 3 % (0-6); Hematocrit 33.6 % (37.0-53.0); Hemoglobin 9.7 g/dL (13.5-17.5); IMMATURE GRAN ABSOLUTE AUTO 0.02 K/mm3 (0.00-0.10); IMMATURE GRAN PERCENT AUTO 0 % (0-1); LYMPHOCYTES PERCENT AUTO 10 % (21-46); MONOCYTES ABSOLUTE AUTO 1.22 K/mm3 (0.16-1.47); MONOCYTES PERCENT AUTO 15 % (4-13); Mean Corpuscular HGB Conc 28.9 g/dL (31.5-36.5); Mean Corpuscular Volume 83 fL (80-100); Mean Platelet Volume 9.9 fL (9.1-12.4); NEUTROPHILS ABSOLUTE AUTO 6.04 K/mm3 (1.96-9.15); NEUTROPHILS PERCENT AUTO 72 % (41-73); Platelet Count 275 K/mm3 (150-400); RDW Coefficient Variation 18.2 % (11.7-14.2); RDW Standard Deviation 55.3 fL (35.1-46.3); Red Blood Cell Count 4.04 M/mm3 (4.30-5.90); White Blood Cell Count 8.36 K/mm3 (4.00-11.30)
[2019-09-20 14:44] LABS: Albumin, Blood 3.3 g/dL (3.4-5.0); Albumin/Globulin Ratio 0.8 (0.8-1.8); Bilirubin, Total 0.5 mg/dL (0.1-1.0); Bun/Creatinine Ratio 12.7 (12.0-20.0); Calcium, Blood 8.4 mg/dL (8.5-10.1); Creatinine, Blood 1.26 mg/dL (0.60-1.20); Globulin, Blood 4.3 g/dL (2.2-4.0); Potassium, Blood 4.4 mmol/L (3.5-5.5); Total Protein, Blood 7.6 g/dL (6.4-8.2); Troponin I 0.049 ng/mL (0.000-0.040)
[2019-09-20] MEDS ORDERED: Norco 5-325 Ta1 EACH PO (15:58)
[2019-09-20] MEDS ORDERED: PROM25 PO (15:59)
[2019-09-20] MEDS ORDERED: FURO40 PO (15:59)
[2019-09-20] MEDS ORDERED: Hydrocortisone5 MG PO (17:12)
[2019-09-20] MEDS ORDERED: ALBU90OI INH (17:16)
[2019-09-20] MEDS ORDERED: FLUT1DIS2 INH (17:17)
[2019-09-20] MEDS ORDERED: ASCO500 PO (17:18)
[2019-09-20] MEDS ORDERED: Ferrous Sulfat325 M2 PO (17:18)
[2019-09-20] MEDS ORDERED: ELIQUIS5 MG PO (17:41)
--- NOTE | 2019-09-20 19:13 | NUR ---
NEW ER ADMIT PT IS A/O X3, STATE MILD SOB. LS DECREASED, COARSE w CRACKLES, HE SOUNDS CONGESTED. BED WEIGHT RECORDED. IV LASIX 40MG GIVEN/ORDER. PT ENCOURAGED TO LIMIT FLUID INTAKE, DINNER TRAY PROVIDED. LISANDRA RN IN FOR REPORT. PT STATE USES O2 PRN @ HOME, CAN NOT REMEMBER DOSE, PLACED ON 2L. HE IS PLEASANT, TALKATIVE, APPRECIATIVE.
[2019-09-21 02:12] LABS: BASOPHILS ABSOLUTE AUTO 0.04 K/mm3 (0.00-0.23); BASOPHILS PERCENT AUTO 1 % (0-2); EOSINOPHILS PERCENT AUTO 3 % (0-6); Hematocrit 34.4 % (37.0-53.0); Hemoglobin 9.8 g/dL (13.5-17.5); IMMATURE GRAN ABSOLUTE AUTO 0.02 K/mm3 (0.00-0.10); IMMATURE GRAN PERCENT AUTO 0 % (0-1); LYMPHOCYTES ABSOLUTE AUTO 0.82 K/mm3 (0.84-5.20); LYMPHOCYTES PERCENT AUTO 11 % (21-46); MONOCYTES ABSOLUTE AUTO 1.03 K/mm3 (0.16-1.47); MONOCYTES PERCENT AUTO 14 % (4-13); Mean Corpuscular HGB 24.1 pg (26.0-34.0); Mean Corpuscular HGB Conc 28.5 g/dL (31.5-36.5); Mean Corpuscular Volume 85 fL (80-100); Mean Platelet Volume 9.1 fL (9.1-12.4); NEUTROPHILS ABSOLUTE AUTO 5.35 K/mm3 (1.96-9.15); NEUTROPHILS PERCENT AUTO 72 % (41-73); Platelet Count 280 K/mm3 (150-400); RDW Coefficient Variation 18.3 % (11.7-14.2); RDW Standard Deviation 56.9 fL (35.1-46.3); Red Blood Cell Count 4.07 M/mm3 (4.30-5.90); White Blood Cell Count 7.46 K/mm3 (4.00-11.30)
[2019-09-21 02:31] LABS: Alanine Aminotransfer (ALT/SGP 14 U/L (12-78); Albumin, Blood 3.3 g/dL (3.4-5.0); Albumin/Globulin Ratio 0.8 (0.8-1.8); Alk Phos 83 U/L (50-136); Anion Gap 5 mmol/L (6-16); Aspartate Aminotrans (AST/SGOT 19 U/L (12-37); Bilirubin, Total 0.4 mg/dL (0.1-1.0); Blood Urea Nitrogen 21 mg/dL (8-24); Bun/Creatinine Ratio 17.2 (12.0-20.0); CO2, Blood 34 mmol/L (21-32); Calcium, Blood 8.5 mg/dL (8.5-10.1); Chloride, Blood 97 mmol/L (98-108); Creatinine, Blood 1.22 mg/dL (0.60-1.20); Globulin, Blood 4.3 g/dL (2.2-4.0); Glomerular Filtration Rate >60 (60-); Glucose, Blood 124 mg/dL (70-99); Magnesium, Blood 1.9 mg/dL (1.6-2.4); Potassium, Blood 4.4 mmol/L (3.5-5.5); Sodium, Blood 136 mmol/L (136-145); Total Protein, Blood 7.6 g/dL (6.4-8.2)
--- NOTE | 2019-09-21 04:49 | NUR ---
SHIFT SUMMARY PT IS A 79 Y/O MALE, ADMITTED FOR ACUTE HYPOXEMIC RESPIRATORY FAILURE. HE IS A&O X 3, AND A 1PA OUT OF BED. PT DID REPORT MILD SOB, AND WAS PLACED ON 2L OF O2 VIA NC. PER PT REPORT, HE WEARS O2 AT NIGHT AND OCCASIONALLY DURING THE DAY, BUT COULD NOT REMEMBER THE DOSE. BP WAS SLIGHTLY ELEVATED DURING AM VITALS IN THE 170S SYSTOLICALLY. CONSULTED WITH HOSPITALIST DR GARZA, PRN HYDRALAZINE ORDERED. TELE SHOWED AFIB IN THE 70S. PER HOSPICE REGISTERED NURSE, PT HAD A COUPLE OF EPISODES OF HIS HEART RATE DROPPING INTO THE 30S FOR A FEW SECONDS BEFORE COMING BACK UP TO THE 70S. ALL OTHER VITALS STABLE. NO COMPLAINTS OF ACUTE PAIN OR NAUSEA. SOB WITH EXERTION. NO OTHER ACUTE CHANGES IN PT CONDITION NOTED. WILL CONTINUE TO MONITOR AND TREAT PER EMAR UNTIL HAND OFF TO DAY SHIFT RN.
--- NOTE | 2019-09-21 18:15 | NUR ---
SHIFT SUMMARY: NO ACUTE CHANGES TO REPORT THIS SHIFT. PT A&O; CALM AND COOPERATIVE WITH CARE. NO C/O PAIN OR NAUSEA THIS SHIFT. TELE IN PLACE; A-FIB 70s-80s, PER EYE SPECIALIST; SEVERAL EPISODES OF HR DROPPING INTO 40s; HOSPITALIST (DR JEAN BAPTISTE) NOTIFIED; METOPROLOL ADJUSTED PER EMAR. PT UP c 1-ASSIST. O2 @ 2L; LUNGS COARSE; SOB c EXERTION. WCTM.
--- NOTE | 2019-09-22 03:37 | NUR ---
CERTIFIED PHLEBOTOMY TECHNICIAN SUMMARY PT A/OX3 WITH OCCASTIONAL FORGETFULNESS. PER DEPUTY CHIEF MAGISTRATE, PT HR DID DROP TO BEATS IN THE HIGH 40'S TWICE TONIGHT AND CAME BACK TO A. FIB IN THE 70'S. PT BECAME BRADYCARDIC ON DAYSHIFT ALSO, AND IS ALREADY AWARE. METOPROLOL DOSE HAS BEEN DECREASED BY AM DOCTOR. PT SLEPT WELL TONIGHT. CALL LIGHT WITHIN REACH.
[2019-09-22 05:25] LABS: BASOPHILS ABSOLUTE AUTO 0.06 K/mm3 (0.00-0.23); BASOPHILS PERCENT AUTO 1 % (0-2); EOSINOPHILS ABSOLUTE AUTO 0.55 K/mm3 (0.00-0.68); EOSINOPHILS PERCENT AUTO 5 % (0-6); Hematocrit 36.6 % (37.0-53.0); Hemoglobin 10.5 g/dL (13.5-17.5); IMMATURE GRAN ABSOLUTE AUTO 0.05 K/mm3 (0.00-0.10); IMMATURE GRAN PERCENT AUTO 1 % (0-1); LYMPHOCYTES ABSOLUTE AUTO 1.41 K/mm3 (0.84-5.20); LYMPHOCYTES PERCENT AUTO 13 % (21-46); MONOCYTES ABSOLUTE AUTO 1.42 K/mm3 (0.16-1.47); MONOCYTES PERCENT AUTO 13 % (4-13); Mean Corpuscular HGB 23.8 pg (26.0-34.0); Mean Corpuscular HGB Conc 28.7 g/dL (31.5-36.5); Mean Corpuscular Volume 83 fL (80-100); Mean Platelet Volume 10.2 fL (9.1-12.4); NEUTROPHILS ABSOLUTE AUTO 7.29 K/mm3 (1.96-9.15); NEUTROPHILS PERCENT AUTO 68 % (41-73); Platelet Count 308 K/mm3 (150-400); RDW Standard Deviation 54.7 fL (35.1-46.3); Red Blood Cell Count 4.42 M/mm3 (4.30-5.90); White Blood Cell Count 10.78 K/mm3 (4.00-11.30)
[2019-09-22 05:49] LABS: Magnesium, Blood 2.1 mg/dL (1.6-2.4)
[2019-09-22 05:53] LABS: Alanine Aminotransfer (ALT/SGP 14 U/L (12-78); Albumin, Blood 3.3 g/dL (3.4-5.0); Albumin/Globulin Ratio 0.8 (0.8-1.8); Alk Phos 82 U/L (50-136); Anion Gap 6 mmol/L (6-16); Aspartate Aminotrans (AST/SGOT 14 U/L (12-37); Bilirubin, Total 0.6 mg/dL (0.1-1.0); Blood Urea Nitrogen 25 mg/dL (8-24); Bun/Creatinine Ratio 20.8 (12.0-20.0); CO2, Blood 35 mmol/L (21-32); Chloride, Blood 91 mmol/L (98-108); Globulin, Blood 4.3 g/dL (2.2-4.0); Glomerular Filtration Rate >60 (60-); Glucose, Blood 97 mg/dL (70-99); Potassium, Blood 4.2 mmol/L (3.5-5.5); Sodium, Blood 132 mmol/L (136-145); Total Protein, Blood 7.6 g/dL (6.4-8.2)
--- NOTE | 2019-09-22 13:59 | NUR ---
LATE ENTRY: DISCHARGE SUMMARY: PATIENT DENIED FEELING SOB OR HAVING DIFFICULTY BREATHING. SOME SOB NOTED WITH EXERTION. PATIENT HAS DIFFICULTY WITH SHORT TERM MEMORY AND WITH WORD FINDING AT TIMES. PATIENT DENIES PAIN OR DISCOMFORT. PATIENT DENIED NUMBNESS AND TINGLING. LUNG SOUNDS CLEAR THROUGHOUT THIS MORNING. PATIENT CONTINUES TO VOID CLEAR YELLOW URINE. PER DR. KENDALL, PATIENT IS READY FOR DISCHARGE. DISCHARGE RX FAXED TO [facility] PER PATIENT REQUEST. DISCHARGE INSTRUCTIONS SENT HOME WITH THE PATIENT. PATIENT'S REPORTED ON THE PHONE THAT SHE WOULD RATHER LOOK AT THEM THAN TALK ABOUT THEM ON THE PHONE. ALL QUESTIONS AND CONCERNS OF THE PATIENT ADDRESSED. PATIENT DISCHARGED IN WHEELCHAIR WITH PAYROLL REPRESENTATIVE. PATIENT STABLE AT TIME OF DISCHARGE.
== END 2019-09-22 13:39 | disposition home or self-care (01) ==
LOC: ER 13:44 → MEDS 13:45 → ER 17:07 → MEDS 18:17
PROVIDERS: Nurse Practitioner; ADMIT Internal Medicine
DX: J96.01 Acute respiratory failure with hypoxia (principal); J44.1 Chronic obstructive pulmonary disease with (acute) exacerbation; I48.91 Unspecified atrial fibrillation; E27.40 Unspecified adrenocortical insufficiency; I11.0 Hypertensive heart disease with heart failure; I50.813 Acute on chronic right heart failure; Z79.01 Long term (current) use of anticoagulants; Z79.899 Other long term (current) drug therapy
CPT/HCPCS: 36415; 71046; 80053; 83690; 83735; 83880; 84484; 85025; 93005; 93010; 94640; 96372; 96374; 99285-25; A9270-GY; G0378; J1650; J1940

== ENCOUNTER → 2019-11-15 | Outpatient (CLI) | payer MEDICARE ==
[~2019-11-15] MED LIST changes: +ELIQUIS5 MG PO; +FURO40 PO; +Ferrous Sulfat325 M2 PO
[2019-11-15 14:37] LABS: BASOPHILS ABSOLUTE AUTO 0.05 K/mm3 (0.00-0.23); BASOPHILS PERCENT AUTO 1 % (0-2); EOSINOPHILS ABSOLUTE AUTO 0.37 K/mm3 (0.00-0.68); EOSINOPHILS PERCENT AUTO 4 % (0-6); Hematocrit 36.2 % (37.0-53.0); Hemoglobin 10.9 g/dL (13.5-17.5); IMMATURE GRAN ABSOLUTE AUTO 0.03 K/mm3 (0.00-0.10); IMMATURE GRAN PERCENT AUTO 0 % (0-1); LYMPHOCYTES ABSOLUTE AUTO 1.28 K/mm3 (0.84-5.20); LYMPHOCYTES PERCENT AUTO 14 % (21-46); MONOCYTES ABSOLUTE AUTO 1.27 K/mm3 (0.16-1.47); MONOCYTES PERCENT AUTO 14 % (4-13); Mean Corpuscular HGB 26.5 pg (26.0-34.0); Mean Corpuscular HGB Conc 30.1 g/dL (31.5-36.5); Mean Corpuscular Volume 88 fL (80-100); NEUTROPHILS ABSOLUTE AUTO 5.88 K/mm3 (1.96-9.15); NEUTROPHILS PERCENT AUTO 66 % (41-73); Platelet Count 287 K/mm3 (150-400); RDW Coefficient Variation 18.4 % (11.7-14.2); RDW Standard Deviation 59.2 fL (35.1-46.3); Red Blood Cell Count 4.12 M/mm3 (4.30-5.90); White Blood Cell Count 8.88 K/mm3 (4.00-11.30)
[2019-11-15 14:40] LABS: Calcium, Blood 8.4 mg/dL (8.5-10.1); Creatinine, Blood 1.5 mg/dL (0.60-1.20); Potassium, Blood 4.2 mmol/L (3.5-5.5)
[2019-11-15 15:11] LABS: Thyroid Stimulating Hormone 1.72 uIU/mL (0.360-4.800)
== END | disposition home or self-care (01) ==
LOC: LAB EV 14:31 → LAB SHORT 14:31
PROVIDERS: Physician Assistant Surgical
DX: E07.9 Disorder of thyroid, unspecified (principal); R06.00 Dyspnea, unspecified
CPT/HCPCS: 80048; 83880; 84443; 84484; 85025

== ENCOUNTER 2020-04-15 18:19 | Inpatient (IN) | payer MEDICARE ==
[~2020-04-15] VITALS: Ht 182.9 cm; Wt 102.4 kg
[2020-04-15 18:56] LABS: BASOPHILS ABSOLUTE AUTO 0.04 K/mm3 (0.00-0.23); BASOPHILS PERCENT AUTO 1 % (0-2); EOSINOPHILS ABSOLUTE AUTO 0.45 K/mm3 (0.00-0.68); EOSINOPHILS PERCENT AUTO 7 % (0-6); Hematocrit 34.5 % (37.0-53.0); Hemoglobin 10.7 g/dL (13.5-17.5); IMMATURE GRAN ABSOLUTE AUTO 0.02 K/mm3 (0.00-0.10); IMMATURE GRAN PERCENT AUTO 0 % (0-1); LYMPHOCYTES ABSOLUTE AUTO 1.08 K/mm3 (0.84-5.20); LYMPHOCYTES PERCENT AUTO 17 % (21-46); MONOCYTES ABSOLUTE AUTO 0.78 K/mm3 (0.16-1.47); MONOCYTES PERCENT AUTO 12 % (4-13); Mean Corpuscular HGB 27.6 pg (26.0-34.0); Mean Corpuscular Volume 89 fL (80-100); Mean Platelet Volume 10.5 fL (9.1-12.4); NEUTROPHILS ABSOLUTE AUTO 4.18 K/mm3 (1.96-9.15); NEUTROPHILS PERCENT AUTO 64 % (41-73); Platelet Count 243 K/mm3 (150-400); RDW Coefficient Variation 16.4 % (11.7-14.2); Red Blood Cell Count 3.87 M/mm3 (4.30-5.90); White Blood Cell Count 6.55 K/mm3 (4.00-11.30)
[2020-04-15 19:12] LABS: Alanine Aminotransfer (ALT/SGP 14 U/L (12-78); Albumin, Blood 3.2 g/dL (3.4-5.0); Albumin/Globulin Ratio 0.8 (0.8-1.8); Alk Phos 92 U/L (50-136); Anion Gap 9 mmol/L (6-16); Aspartate Aminotrans (AST/SGOT 12 U/L (12-37); Bilirubin, Total 1.1 mg/dL (0.1-1.0); Blood Urea Nitrogen 14 mg/dL (8-24); Bun/Creatinine Ratio 12.6 (12.0-20.0); CO2, Blood 25 mmol/L (21-32); Chloride, Blood 96 mmol/L (98-108); Creatinine, Blood 1.11 mg/dL (0.60-1.20); Glomerular Filtration Rate >60 (60-); Glucose, Blood 139 mg/dL (70-99); Potassium, Blood 4.1 mmol/L (3.5-5.5); Sodium, Blood 130 mmol/L (136-145); Total Protein, Blood 7.2 g/dL (6.4-8.2)
[2020-04-15 20:11] LABS: Source, Urine Clean Catch
[2020-04-15 20:15] LABS: Appearance, Urine Clear (Clear); Bilirubin, Urine Neg (Neg); Blood, Urine Neg (Neg); Color, Urine Yellow (P-Yellow); Glucose Qualitative, Urine Neg (Neg); Ketones, Urine Neg (Neg); Leukocyte Esterase, Urine Neg (Neg); Nitrite, Urine Neg (Neg); Protein, Urine 2+ (Neg); Specific Gravity, Urine 1.005 (1.003-1.022); Urobilinogen, Urine 1+ (Normal)
[2020-04-15 20:24] LABS: Bacteria Rare /hpf; Red Blood Cells, Urine 0-2 /hpf (0-2); Squamous Epithelial Cells Not Seen /hpf (Few); White Blood Cells, Urine Not Seen /hpf (0-5)
[2020-04-16 00:08] LABS: Troponin I 0.042 ng/mL (0.000-0.040)
[2020-04-16 01:58] LABS: Troponin I 0.052 ng/mL (0.000-0.040)
[2020-04-16 03:09] LABS: Thyroid Stimulating Hormone 2.18 uIU/mL (0.360-4.800)
--- NOTE | 2020-04-16 03:30 | NUR ---
ADMIT NOTE PT CAME TO PCU FROM ED AT APPROX 0240. PT WAS SLID FROM ED STRETCHER TO PCU BED. PT A&OX4. A POOR HISTORIAN, STATES HIS HANDLES HIS MEDICAL INFORMATION/MEDICATION. SP02 >90% ON 2L NC. PT STATED HE WAS SOB WHILE LYING DOWN. PT RAISED TO SEMI FOWLERS, WHICH PT STATED WAS BETTER. PT SOUNDS AUDIBLY MOIST, LIKE PHLEM IN THROAT THAT NEEDS CLEARED. ENCOURAGED PT TO COUGH. PT STATED, "I COUGH WHEN I NEED TO COUGH." TELEMETRY READS AFIB, 70. PT DENIES CP/PRESSURE. ABD FIRM, NON TENDER, PT DENIES PAIN OF ANY KIND. PT ORIENTED TO ROOM, INSTRUCTED TO CALL FOR BATHROOM ASSISTANCE. CALL LIGHT WITH IN REACH. WILL CONTINUE TO MONITOR.
[2020-04-16 05:47] LABS: Campylobacter Sp Not Detected (NOT DETECT); Enteroaggregative E. coli-EAEC Not Detected (NOT DETECT); Enteropathogenic E. coli-EPEC Detected (NOT DETECT); Enterotoxigenic E. coli-ETEC Detected (NOT DETECT); Plesiomonas Shigelloides Not Detected (NOT DETECT); Salmonella Sp Not Detected (NOT DETECT); Vibrio Cholerae Not Detected (NOT DETECT); Vibrio Sp Not Detected (NOT DETECT); Yersinia Enterocolitica Not Detected (NOT DETECT)
[2020-04-16 05:48] LABS: Adenovirus F 40/41 Not Detected (NOT DETECT); Astrovirus Not Detected (NOT DETECT); Cryptosporidium Not Detected (NOT DETECT); Cyclospora Cayetanensis Not Detected (NOT DETECT); E. Coli O157 Not Detected (NOT DETECT); Entamoeba Histolytica Not Detected (NOT DETECT); Giardia Lamblia Detected (NOT DETECT); Norovirus GI/GII Not Detected (NOT DETECT); Rotavirus A Not Detected (NOT DETECT); Sapovirus Not Detected (NOT DETECT); Shiga Toxin-prod E. coli-STEC Not Detected (NOT DETECT); Shigella/Enteroin E. coli-EIEC Not Detected (NOT DETECT)
--- NOTE | 2020-04-16 06:07 | NUR ---
SHIFT SUMMARY PT A&OX4, COOPERATIVE. SP02>90% ON 2L NC. PT CONTINUES TO SOUND LIKE THERE IS PHLEM IN HIS THROAT WHEN TALKING. LUNGS HAVE WHEEZES, SOB UPON EXERTION. TELEMETRY READS A FIB, 70'S. PT DENIED ABD PAIN. PT USED URINALS FREQUENTLY T/O SHIFT. PT USED HIS CALL LIGHT AND GOT OUT OF BED IMMEDIATLY AFTER PUSHING IT TO USE THE RESTROOM, WITHOUT WAITING FOR ASSISTANCE. PT STATES HE HAD DIARRHEA AND THIS IS THE FIRST TIME HE HAS NOT BEEN ABLE TO "HOLD IT". PCT IN ROOM TO HELP PT AMBULATE FROM TOILET BACK TO BED. INSTRUCTED PT ON USING CALL LIGHT AND WAITING UNTIL SOMEONE CAN ASSIST HIM, FOR HIS SAFETY. BED ALARM ON. PT AMBULATED WITH A LIMP ON HIS RIGHT FOOT. PT STATES HAD R ANKLE/HEEL SURGERY IN THE PAST AND HAS WALKED LIKE THAT EVER SINCE. PT STATES USES A CANE AT HOME. PT CONTINUE TO BE NPO. WILL CONTINUE TO MONITOR.
[2020-04-16 06:54] LABS: BASOPHILS ABSOLUTE AUTO 0.06 K/mm3 (0.00-0.23); BASOPHILS PERCENT AUTO 1 % (0-2); EOSINOPHILS ABSOLUTE AUTO 0.58 K/mm3 (0.00-0.68); EOSINOPHILS PERCENT AUTO 7 % (0-6); Hematocrit 35.8 % (37.0-53.0); Hemoglobin 11.5 g/dL (13.5-17.5); IMMATURE GRAN ABSOLUTE AUTO 0.02 K/mm3 (0.00-0.10); IMMATURE GRAN PERCENT AUTO 0 % (0-1); LYMPHOCYTES PERCENT AUTO 13 % (21-46); MONOCYTES ABSOLUTE AUTO 1.07 K/mm3 (0.16-1.47); MONOCYTES PERCENT AUTO 13 % (4-13); Mean Corpuscular HGB 28.5 pg (26.0-34.0); Mean Corpuscular HGB Conc 32.1 g/dL (31.5-36.5); Mean Corpuscular Volume 89 fL (80-100); Mean Platelet Volume 9.7 fL (9.1-12.4); NEUTROPHILS ABSOLUTE AUTO 5.49 K/mm3 (1.96-9.15); NEUTROPHILS PERCENT AUTO 66 % (41-73); Platelet Count 263 K/mm3 (150-400); RDW Coefficient Variation 16.4 % (11.7-14.2); RDW Standard Deviation 53.3 fL (35.1-46.3); Red Blood Cell Count 4.03 M/mm3 (4.30-5.90); White Blood Cell Count 8.32 K/mm3 (4.00-11.30)
[2020-04-16 07:12] LABS: Alanine Aminotransfer (ALT/SGP 14 U/L (12-78); Albumin, Blood 3.4 g/dL (3.4-5.0); Albumin/Globulin Ratio 0.8 (0.8-1.8); Alk Phos 101 U/L (50-136); Anion Gap 7 mmol/L (6-16); Aspartate Aminotrans (AST/SGOT 17 U/L (12-37); Bilirubin, Total 1.1 mg/dL (0.1-1.0); Blood Urea Nitrogen 15 mg/dL (8-24); CO2, Blood 31 mmol/L (21-32); Calcium, Blood 9.4 mg/dL (8.5-10.1); Chloride, Blood 93 mmol/L (98-108); Creatinine, Blood 1.15 mg/dL (0.60-1.20); Globulin, Blood 4.1 g/dL (2.2-4.0); Glomerular Filtration Rate >60 (60-); Glucose, Blood 86 mg/dL (70-99); Potassium, Blood 3.8 mmol/L (3.5-5.5); Sodium, Blood 131 mmol/L (136-145); Total Protein, Blood 7.5 g/dL (6.4-8.2)
--- NOTE | 2020-04-16 10:43 | NUR ---
ASSUME CARE THIS AM: PT AWAITING FOR POSS LAP BROOKS PROCEDURE TODAY, KEPT NPO SINCE LAST NIGHT. ALER AND ORIENTED. VS HRR AFIB 70'S, BP SYSTOLIC 160'S, SATS ABOVE 95% ON 2L OF O2, AFEBRILE. DENIES ANY PAIN AT THIS TIME, PT RESTING COMFORTABLY IN BED USES URINAL FOR VOIDING CALLS APPROPRIATELY, WILL MONITOR
--- NOTE | 2020-04-16 17:57 | NUR ---
PT SUMMARY: ALERT AND ORIENTED, VITALS HRR AFIB 60-70'S, BP SYSTOLIC 160'S, SATS ABOVE 95% ON RA, AFEBRILE. HIDA SCAN WAS DONE TODAY CAME BACK NORMAL NO SRUGERY REQUIRED OF THIS TIME PER DR BOSTON, DIET RESUMED ON CARDIAC. PT DENIES ANY CHEST PAIN, ABD PAIN, NAUSEA AND VOMITING. PT ON IV ABO, NO OTHER ISSUES ENCOUNTERED FOR THE SHIFT, ABLE TO MAKE NEEDS KNOWN, CALL LIGHTS IN REACH WILL REPORT TO ONCOMING SHIFT.
--- NOTE | 2020-04-16 19:30 | NUR ---
CARE ASSUMPTION PT A&OX4. PLEASANT AND COOPERATIVE. SP02 >92% ON 3L NC. PT DENIES SOB. LUNGS SOUND COARSE. PT HAS PRODUCTIVE COUGH PRODUCING A SMALL AMOUNT OF CLEAR/LIGHT YELLOW SPUTUM. PT OCCASIONALLY SOUNDS MOIST WHEN HE TALKS, LIKE HE NEEDS TO CLEAR HIS THROAT. TELEMETRY READS AFIB, HR 70'S. PT DENIES PAIN OF ANY KIND. PT USED A URINAL AT THE BEDSIDE PRODUCING CLEAR, YELLOW URINE. CALL LIGHT IN REACH, WILL CONTINUE TO MONITOR.
[2020-04-17 04:20] LABS: BASOPHILS ABSOLUTE AUTO 0.05 K/mm3 (0.00-0.23); BASOPHILS PERCENT AUTO 1 % (0-2); EOSINOPHILS PERCENT AUTO 3 % (0-6); Hematocrit 38.5 % (37.0-53.0); Hemoglobin 11.8 g/dL (13.5-17.5); IMMATURE GRAN ABSOLUTE AUTO 0.03 K/mm3 (0.00-0.10); IMMATURE GRAN PERCENT AUTO 0 % (0-1); LYMPHOCYTES ABSOLUTE AUTO 0.75 K/mm3 (0.84-5.20); LYMPHOCYTES PERCENT AUTO 8 % (21-46); MONOCYTES ABSOLUTE AUTO 1.36 K/mm3 (0.16-1.47); MONOCYTES PERCENT AUTO 15 % (4-13); Mean Corpuscular HGB 27.3 pg (26.0-34.0); Mean Corpuscular HGB Conc 30.6 g/dL (31.5-36.5); Mean Corpuscular Volume 89 fL (80-100); Mean Platelet Volume 10.3 fL (9.1-12.4); NEUTROPHILS ABSOLUTE AUTO 6.49 K/mm3 (1.96-9.15); NEUTROPHILS PERCENT AUTO 72 % (41-73); Platelet Count 285 K/mm3 (150-400); RDW Coefficient Variation 16.1 % (11.7-14.2); Red Blood Cell Count 4.32 M/mm3 (4.30-5.90); White Blood Cell Count 8.98 K/mm3 (4.00-11.30)
[2020-04-17 04:46] LABS: Alanine Aminotransfer (ALT/SGP 16 U/L (12-78); Albumin, Blood 3.1 g/dL (3.4-5.0); Albumin/Globulin Ratio 0.8 (0.8-1.8); Alk Phos 98 U/L (50-136); Anion Gap 7 mmol/L (6-16); Aspartate Aminotrans (AST/SGOT 15 U/L (12-37); Bilirubin, Total 0.8 mg/dL (0.1-1.0); Blood Urea Nitrogen 21 mg/dL (8-24); Bun/Creatinine Ratio 17.9 (12.0-20.0); CO2, Blood 34 mmol/L (21-32); Calcium, Blood 8.4 mg/dL (8.5-10.1); Chloride, Blood 90 mmol/L (98-108); Creatinine, Blood 1.17 mg/dL (0.60-1.20); Globulin, Blood 4.1 g/dL (2.2-4.0); Glomerular Filtration Rate >60 (60-); Glucose, Blood 102 mg/dL (70-99); Potassium, Blood 4.1 mmol/L (3.5-5.5); Sodium, Blood 131 mmol/L (136-145); Total Protein, Blood 7.2 g/dL (6.4-8.2)
--- NOTE | 2020-04-17 05:49 | NUR ---
SHIFT SUMMARY NO ACUTE CHANGES THIS SHIFT. PT A&OX4. USES CALL LIGHT APPROPRIATELY. SP02>92% ON 3L NC. PT HAS MOIST COUGH. OCCASIONALLY SOUNDS LIKE HE NEEDS TO CLEAR HIS THROAT/COUGH WHEN SPEAKING. PT HAS CPAP ORDERED, RESPIRATORY IN TO SEE PT. PT REFUSED CPAP, STATES HE DOES NOT WEAR ONE AT HOME. TELEMETRY READS AFIB, 70'S. PT USED URINAL AT BEDSIDE FREQUENTLY T/O SHIFT. PT SLEPT OFF AND ON T/O SHIFT. WATCHED TV AND ATE SNACKS, SLEEPING INTERMITTENTLY. PT DENIES PAIN. CALL LIGHT IN REACH. WILL CONTINUE TO MONITOR.
--- NOTE | 2020-04-17 08:01 | NUR ---
Pleasant, cooperative and conversant. Denies discomfort, except for in his calves which he states just started "here lately" but upon further questioning he states it has been going on for 2 years, and he describes it as "knotting up" every once in a while, indiscriminately. States he ambulates using a cane or a walker, and this doesn't make it better or worse. He has a good appetite. eating breakfast at this time.
[2020-04-17] MEDS ORDERED: METR500 PO (11:37)
[2020-04-17] MEDS ORDERED: VISBIOME PO (11:39)
[2020-04-17] MEDS ORDERED: ONDA4ODT MM (11:39)
--- NOTE | 2020-04-17 12:54 | NUR ---
At pt's request, his Ayala was called to notify her of pt's discharge today. She confirmed that pt's son will be able to bring him home when he gets off of work around 4 pm. Also informed pt and his that new prescriptions have been sent to [facility] in [place].
--- NOTE | 2020-04-17 13:43 | NUR ---
Call to Ayala Ro, pt's spouse, to review pt's medications at discharge as well as follow up appointment with Rehana wolfe MD, next week. Pt's states that daughter Chela is coming in about an hour to give the pt a ride home.
--- NOTE | 2020-04-17 14:40 | NUR ---
Patient is in the DC process but quickly shares about his medical issues but then lights up as he talks about his family and even the grandchildren he and his have raised. I provide therapeutic listening and normalizing of patient's experience. I also talk with patient's daughter Chela and learn more about the family dynamics.
--- NOTE | 2020-04-17 15:22 | NUR ---
1415 The pt's daughter Nadiya here to take the pt home. Pt declined use of oxygen during transport. His had told me over the phone that he had oxygen in his rig. The pt also told me this. Pt was assisted with dressing and using the urinal before going home. chaplain Vera in the room, talking with Nadiya. Pt was assisted to the wheelchair with his belongings and taken by Estelle, the PCT, to private vehicle driven by his daughter Nadiya.
== END 2020-04-17 14:20 | disposition home or self-care (01) | DRG 371 ==
LOC: ER 18:19 → PCU 18:20
PROVIDERS: Emergency Medicine; Internal Medicine; ADMIT Family Medicine
DX: A07.1 Giardiasis [lambliasis] (principal); I50.33 Acute on chronic diastolic (congestive) heart failure; J96.21 Acute and chronic respiratory failure with hypoxia; I16.1 Hypertensive emergency; I13.0 Hypertensive heart and chronic kidney disease with heart failure and stage 1 through stage 4 chronic kidney disease, or unspecified chronic kidney disease; J44.1 Chronic obstructive pulmonary disease with (acute) exacerbation; I48.20 Chronic atrial fibrillation, unspecified; E87.1 Hypo-osmolality and hyponatremia; K81.0 Acute cholecystitis; E27.40 Unspecified adrenocortical insufficiency; Z20.828 Contact with and (suspected) exposure to other viral communicable diseases; N18.30 Chronic kidney disease, stage 3 unspecified; E05.10 Thyrotoxicosis with toxic single thyroid nodule without thyrotoxic crisis or storm; R55 Syncope and collapse; M79.18 Myalgia, other site; G89.29 Other chronic pain; E66.9 Obesity, unspecified; R79.89 Other specified abnormal findings of blood chemistry; D63.1 Anemia in chronic kidney disease; G47.33 Obstructive sleep apnea (adult) (pediatric); Z87.891 Personal history of nicotine dependence; Z99.81 Dependence on supplemental oxygen; Z79.899 Other long term (current) drug therapy; Z79.01 Long term (current) use of anticoagulants; Z79.52 Long term (current) use of systemic steroids; Z68.31 Body mass index [BMI] 31.0-31.9, adult
CPT/HCPCS: 0097U; 36415; 71275; 74175; 78226; 80053; 81001; 83690; 83880; 84439; 84443; 84481; 84484; 85025; 93005; 93010; 94760; 96375; 96376; 99285-25; A9270-GY; A9537; G0378; J0456; J0696; J1940; J2543; J7050; Q9967; U0003

== ENCOUNTER 2020-05-22 10:30 | Emergency (ER) | payer MEDICARE ==
[~2020-05-22] VITALS: Ht 182.9 cm; Wt 108.9 kg
[~2020-05-22 10:30] MED LIST changes: -ALDACTONE25 MG PO; +METR500 PO; +ONDA4ODT MM; +VISBIOME PO
[2020-05-22 11:32] LABS: BASOPHILS ABSOLUTE AUTO 0.05 K/mm3 (0.00-0.23); BASOPHILS PERCENT AUTO 1 % (0-2); EOSINOPHILS ABSOLUTE AUTO 0.36 K/mm3 (0.00-0.68); EOSINOPHILS PERCENT AUTO 4 % (0-6); Hematocrit 36.7 % (37.0-53.0); Hemoglobin 11.3 g/dL (13.5-17.5); IMMATURE GRAN ABSOLUTE AUTO 0.03 K/mm3 (0.00-0.10); IMMATURE GRAN PERCENT AUTO 0 % (0-1); LYMPHOCYTES ABSOLUTE AUTO 0.89 K/mm3 (0.84-5.20); LYMPHOCYTES PERCENT AUTO 11 % (21-46); MONOCYTES PERCENT AUTO 12 % (4-13); Mean Corpuscular HGB 27.8 pg (26.0-34.0); Mean Corpuscular HGB Conc 30.8 g/dL (31.5-36.5); Mean Corpuscular Volume 90 fL (80-100); NEUTROPHILS ABSOLUTE AUTO 6.13 K/mm3 (1.96-9.15); NEUTROPHILS PERCENT AUTO 72 % (41-73); Platelet Count 220 K/mm3 (150-400); RDW Coefficient Variation 15.3 % (11.7-14.2); RDW Standard Deviation 50.4 fL (35.1-46.3); Red Blood Cell Count 4.07 M/mm3 (4.30-5.90); White Blood Cell Count 8.46 K/mm3 (4.00-11.30)
[2020-05-22 11:56] LABS: Alanine Aminotransfer (ALT/SGP 13 U/L (12-78); Albumin, Blood 3.4 g/dL (3.4-5.0); Albumin/Globulin Ratio 0.8 (0.8-1.8); Alk Phos 115 U/L (50-136); Anion Gap 5 mmol/L (6-16); Aspartate Aminotrans (AST/SGOT 15 U/L (12-37); Bilirubin, Total 0.7 mg/dL (0.1-1.0); Blood Urea Nitrogen 14 mg/dL (8-24); Bun/Creatinine Ratio 14.6 (12.0-20.0); CO2, Blood 28 mmol/L (21-32); Calcium, Blood 8.9 mg/dL (8.5-10.1); Chloride, Blood 92 mmol/L (98-108); Creatinine, Blood 0.96 mg/dL (0.60-1.20); Globulin, Blood 4.2 g/dL (2.2-4.0); Glomerular Filtration Rate >60 (60-); Glucose, Blood 81 mg/dL (70-99); Potassium, Blood 4.4 mmol/L (3.5-5.5); Sodium, Blood 125 mmol/L (136-145); Total Protein, Blood 7.6 g/dL (6.4-8.2); Troponin I 0.045 ng/mL (0.000-0.040)
[2020-05-22] MEDS ORDERED: ALDACTONE25 MG PO (13:41)
[2020-05-22] MEDS ORDERED: METHI10 PO (13:42)
[2020-05-22] MEDS ORDERED: HYDCOR10 PO (13:48)
== END 2020-05-22 15:25 | disposition home or self-care (01) ==
LOC: ER 10:30
PROVIDERS: Emergency Medicine
DX: J44.9 Chronic obstructive pulmonary disease, unspecified (principal); I48.91 Unspecified atrial fibrillation; I11.0 Hypertensive heart disease with heart failure; I50.30 Unspecified diastolic (congestive) heart failure; Z79.899 Other long term (current) drug therapy
CPT/HCPCS: 36415; 71045; 80053; 83880; 84484; 85025; 93005; 93010; 96374; 99284-25; J1940

== ENCOUNTER 2020-09-14 06:45 | Observation (INO) | payer MEDICARE, OTHER ==
[~2020-09-14] VITALS: Ht 182.9 cm; Wt 97.6 kg
[2020-09-14 08:41] LABS: BASOPHILS ABSOLUTE AUTO 0.05 K/mm3 (0.00-0.23); BASOPHILS PERCENT AUTO 1 % (0-2); EOSINOPHILS ABSOLUTE AUTO 0.58 K/mm3 (0.00-0.68); EOSINOPHILS PERCENT AUTO 7 % (0-6); Hemoglobin 11.4 g/dL (13.5-17.5); IMMATURE GRAN ABSOLUTE AUTO 0.02 K/mm3 (0.00-0.10); IMMATURE GRAN PERCENT AUTO 0 % (0-1); LYMPHOCYTES ABSOLUTE AUTO 1.48 K/mm3 (0.84-5.20); LYMPHOCYTES PERCENT AUTO 17 % (21-46); MONOCYTES ABSOLUTE AUTO 1.31 K/mm3 (0.16-1.47); MONOCYTES PERCENT AUTO 15 % (4-13); Mean Corpuscular HGB 28.5 pg (26.0-34.0); Mean Corpuscular HGB Conc 31.7 g/dL (31.5-36.5); Mean Corpuscular Volume 90 fL (80-100); NEUTROPHILS ABSOLUTE AUTO 5.27 K/mm3 (1.96-9.15); NEUTROPHILS PERCENT AUTO 61 % (41-73); Platelet Count 259 K/mm3 (150-400); RDW Coefficient Variation 15.9 % (11.7-14.2); White Blood Cell Count 8.71 K/mm3 (4.00-11.30)
[2020-09-14 08:49] LABS: Albumin, Blood 3.4 g/dL (3.4-5.0); Albumin/Globulin Ratio 0.8 (0.8-1.8); Bilirubin, Total 1.1 mg/dL (0.1-1.0); Bun/Creatinine Ratio 15.6 (12.0-20.0); Calcium, Blood 8.5 mg/dL (8.5-10.1); Creatinine, Blood 1.28 mg/dL (0.60-1.20); Globulin, Blood 4.4 g/dL (2.2-4.0); Potassium, Blood 3.9 mmol/L (3.5-5.5); Total Protein, Blood 7.8 g/dL (6.4-8.2); Troponin I 0.054 ng/mL (0.000-0.040)
[2020-09-14 09:02] LABS: PCO2 Arterial 37.5 mmHg (35-45); PO2 Arterial 82.5 mmHg (80-100); pH Blood Arterial 7.43 (7.35-7.45)
[2020-09-14 09:05] LABS: Source, Urine Catheter
[2020-09-14 09:11] LABS: Appearance, Urine Clear (Clear); Bilirubin, Urine Neg (Neg); Blood, Urine Neg (Neg); Color, Urine Yellow (P-Yellow); Glucose Qualitative, Urine Neg (Neg); Ketones, Urine Neg (Neg); Leukocyte Esterase, Urine Neg (Neg); Nitrite, Urine Neg (Neg); Protein, Urine 3+ (Neg); Specific Gravity, Urine 1.015 (1.003-1.022); Urobilinogen, Urine NORM (Normal)
[2020-09-14 09:21] LABS: Influenza A, PCR NEGATIVE (NEGATIVE); Influenza B, PCR NEGATIVE (NEGATIVE); Resp Syncytial Virus, PCR NEGATIVE (NEGATIVE); SARS-Cov-2 (COVID-19) PCR, MMC NEGATIVE (NEGATIVE)
[2020-09-14 09:24] LABS: Red Blood Cells, Urine 0-2 /hpf (0-2); White Blood Cells, Urine 0-2 /hpf (0-5)
[2020-09-14 09:25] LABS: Amorphous Mod (0-Heavy); Bacteria Not Seen /hpf; Squamous Epithelial Cells Rare /hpf (Few)
[2020-09-14] MEDS ORDERED: METOPROLOL TART25 MG PO (12:21)
[2020-09-14] MEDS ORDERED: Hydrocortisone5 MG PO (12:22)
[2020-09-14] MEDS ORDERED: ALDACTONE25 MG PO (13:04)
[2020-09-14] MEDS ORDERED: METHI10 PO (13:04)
--- NOTE | 2020-09-14 14:00 | NUR ---
PT CAME IN FOR CHF/ FLUID OVERLOAD. PT IS AOX4; CALLS APPROPRIATELY. PT IS A VERY POOR HISTORIAN OF HIS OWN HEALTH STATUS. HE DOES NOT KNOW THE MEDICATIONS THAT HE TAKES AND HE STATED THAT HE STOP TAKING THE DIURETICS BECAUSE IT MAKES HIM URINATE A LOT. PT DOES NOT RECALL HIS PAST MEDICAL HISTORY AND DENIES THAT HE HAS A HEART PROBLEMS; HIS STATED THAT HE DOES HAVE A HEART ISSUES AND DOES NOT WANT TO TAKE MEDICATION. PT TROPONIN WAS ELEVATED AND HE WAS HAVING SOME URINARY RETENTION- THEREFORE RICHARDSON WAS PLACED; PT HAD BLADDER SCAN AT ED AND 500CC OUTPUT AND 2300ML OF URINE OUT. PT ALSO ON TELE- AFIB @70S. PT CAME IN WITH HTN- CALLED THE DR FOR ORDERS. PT HAD A PMH OF HTN, CHF. AND PT USES O2 AT HOME BUT NOT SURE HOW MANY LITERS HE USUALLY ON. HE IS ON 2L RIGHT NOW AND SATS ABOVE 95%. PT LIVE WITH IN THEIR RANCH. PT IS VERY WEAK AND USES CANE AT HOME. BNP IS 1443.
--- NOTE | 2020-09-14 15:13 | NUR ---
CALLED ABOUT THE HIGH BLOOD PRESSURE OF THE PT. PT RECEIVED HYDRALAZINE 10 MG ONCE, AND STILL NOT RESOLVED; AWARE AND WILL PUT ORDER SCHEDULED
[2020-09-14] MEDS ORDERED: TORSE20 PO (15:16)
[2020-09-14] MEDS ORDERED: HYDCOR10 PO (15:18)
--- NOTE | 2020-09-14 23:58 | NUR ---
FIG WASHER CALED EARLIER RE HR DROPPING N TO THE 40'S AND 50'S. UPON ARRIVAL AT ROOM, NOTED PT ASLEEP. AWAKENED AND ASKED IF HE WAS OK, PT SAID HE WSA OK. NO NOTED S/S ACUTE DISTRESS. WILL CONTINUE TO MONITOR. CALL LIGHT IN REACH
--- NOTE | 2020-09-15 03:48 | NUR ---
SHIFT SUMMARY HAS BEEN RESTING QUIETLY WITH FE WINTERRUPTIONS. RECEIVED BED BATH HE STATED HE COULDNT SLEEP WELL DUE TO BEING ABLE TO "SMELL" HIMSELF. O2 CONTINUES AT 2L/MIN PER NC. HOB AT 45-60 DEGREES FOR BRATHING COMFORT. NO NOTED S/S ACUTE DISTRESS. CALL LIGHT IN REACH.
[2020-09-15 04:42] LABS: BASOPHILS ABSOLUTE AUTO 0.06 K/mm3 (0.00-0.23); BASOPHILS PERCENT AUTO 1 % (0-2); EOSINOPHILS PERCENT AUTO 5 % (0-6); Hemoglobin 11.3 g/dL (13.5-17.5); IMMATURE GRAN ABSOLUTE AUTO 0.03 K/mm3 (0.00-0.10); IMMATURE GRAN PERCENT AUTO 0 % (0-1); LYMPHOCYTES ABSOLUTE AUTO 1.13 K/mm3 (0.84-5.20); LYMPHOCYTES PERCENT AUTO 13 % (21-46); MONOCYTES ABSOLUTE AUTO 1.37 K/mm3 (0.16-1.47); MONOCYTES PERCENT AUTO 16 % (4-13); Mean Corpuscular HGB 28.3 pg (26.0-34.0); Mean Corpuscular HGB Conc 32.3 g/dL (31.5-36.5); Mean Corpuscular Volume 88 fL (80-100); NEUTROPHILS ABSOLUTE AUTO 5.47 K/mm3 (1.96-9.15); NEUTROPHILS PERCENT AUTO 65 % (41-73); Platelet Count 269 K/mm3 (150-400); RDW Coefficient Variation 15.9 % (11.7-14.2); RDW Standard Deviation 51.2 fL (35.1-46.3); White Blood Cell Count 8.46 K/mm3 (4.00-11.30)
[2020-09-15 05:04] LABS: Alanine Aminotransfer (ALT/SGP 17 U/L (12-78); Albumin, Blood 3.1 g/dL (3.4-5.0); Albumin/Globulin Ratio 0.8 (0.8-1.8); Alk Phos 107 U/L (50-136); Anion Gap 7 mmol/L (6-16); Aspartate Aminotrans (AST/SGOT 16 U/L (12-37); Bilirubin, Total 0.9 mg/dL (0.1-1.0); Blood Urea Nitrogen 27 mg/dL (8-24); CO2, Blood 31 mmol/L (21-32); Calcium, Blood 8.7 mg/dL (8.5-10.1); Chloride, Blood 98 mmol/L (98-108); Creatinine, Blood 1.23 mg/dL (0.60-1.20); Globulin, Blood 4.1 g/dL (2.2-4.0); Glomerular Filtration Rate >60 (60-); Glucose, Blood 95 mg/dL (70-99); Potassium, Blood 3.9 mmol/L (3.5-5.5); Sodium, Blood 136 mmol/L (136-145); Total Protein, Blood 7.2 g/dL (6.4-8.2)
--- NOTE | 2020-09-15 17:02 | NUR ---
PT AOX3 AND COOPERATIVE OF CARE. PHYSICAL THERAPY WORKED WITH PT. PT NEEDS GAIT BELT AND WALKER. PT CAN BE IMPULSIVE WITH HIS MOVES AND HAS TO BE MONITORED CLOSE WHILE AMBUALTING. PT HAS BEEN UP IN CHAIR FOR MEALS . PT HAS CALL LIGHT WITHIN REACH AND DENIES ANY PAIN AT THIS TIME. WILL CONTINUE TO MONITOR.
--- NOTE | 2020-09-16 04:14 | NUR ---
SHIFT SUMMARY: PT IS ALERT AND ORIENTED. PT IS CALM AND COOPERATIVE WITH CARE. PT CALLS APPROPRIATELY. PT IS A ONE PERSON ASSIST WITH FWW. PT DENIES PAIN, NAUSEA, VOMITING. PT REPORTS SOB WITH EXERTION, ON 1.5 L O2. RICHARDSON PATENT AND DRAINING YELLOW URINE. PT SLEPT VERY LITTLE OVERNIGHT. NO ACUTE CHANGES OR COMPLICATIONS THIS SHIFT. BED IN LOW POSITION, CALL LIGHT WITHIN REACH. WILL CONTINUE TO MONITOR.
[2020-09-16 04:46] LABS: BASOPHILS ABSOLUTE AUTO 0.04 K/mm3 (0.00-0.23); BASOPHILS PERCENT AUTO 0 % (0-2); EOSINOPHILS ABSOLUTE AUTO 0.77 K/mm3 (0.00-0.68); EOSINOPHILS PERCENT AUTO 6 % (0-6); Hematocrit 34.7 % (37.0-53.0); Hemoglobin 11.1 g/dL (13.5-17.5); IMMATURE GRAN ABSOLUTE AUTO 0.05 K/mm3 (0.00-0.10); IMMATURE GRAN PERCENT AUTO 0 % (0-1); LYMPHOCYTES ABSOLUTE AUTO 1.29 K/mm3 (0.84-5.20); LYMPHOCYTES PERCENT AUTO 10 % (21-46); MONOCYTES ABSOLUTE AUTO 1.86 K/mm3 (0.16-1.47); MONOCYTES PERCENT AUTO 15 % (4-13); Mean Corpuscular HGB 28.1 pg (26.0-34.0); Mean Corpuscular Volume 88 fL (80-100); Mean Platelet Volume 10.6 fL (9.1-12.4); NEUTROPHILS PERCENT AUTO 69 % (41-73); Platelet Count 267 K/mm3 (150-400); RDW Coefficient Variation 15.6 % (11.7-14.2); RDW Standard Deviation 50.8 fL (35.1-46.3); Red Blood Cell Count 3.95 M/mm3 (4.30-5.90); White Blood Cell Count 12.81 K/mm3 (4.00-11.30)
[2020-09-16 05:05] LABS: Anion Gap 6 mmol/L (6-16); Blood Urea Nitrogen 30 mg/dL (8-24); CO2, Blood 32 mmol/L (21-32); Calcium, Blood 8.5 mg/dL (8.5-10.1); Chloride, Blood 95 mmol/L (98-108); Glomerular Filtration Rate >60 (60-); Glucose, Blood 94 mg/dL (70-99); Magnesium, Blood 1.6 mg/dL (1.6-2.4); Potassium, Blood 3.8 mmol/L (3.5-5.5); Sodium, Blood 133 mmol/L (136-145)
[2020-09-16] MEDS ORDERED: Prinivil10 MG PO (14:20)
[2020-09-16] MEDS ORDERED: FURO40 PO (14:21)
--- NOTE | 2020-09-16 16:28 | NUR ---
PT AOX3 AND COOPERATIVE OF CARE. PT WAS DISCHARGED AND HAD FAMILY TO TRANSPORT. ALL PAPER WORK AND EDUCATIONAL MATERIAL WAS SIGNED AND SENT WITH PT. NO DISTRESS NOTED PT ESCORTED VIA WHEELCHAIR TO N ENTRANCE. PERSONAL BELONINGS COLLECTED. PT EDUCATED ON DRINKING LESS THAN 50 OZ PER DAY AND TO TAKE ALL MEDICATIONS PRESCRIBED. RICHARDSON REMOVED PRIOR TO DISCHARGE.
[2020-10-29] MEDS ORDERED: ONDA4ODT SL (15:46)
[2020-10-29] MEDS ORDERED: Enulose10 GM/15 M PO (15:46)
[2020-11-01] MEDS ORDERED: MYLANTA GAS MIN42 MG PO (10:51)
== END 2020-09-16 16:08 | disposition home health service (06) ==
LOC: ER 06:45 → MEDS 06:46 → ER 11:27 → MEDS 11:27
PROVIDERS: Emergency Medicine; Internal Medicine; ADMIT Internal Medicine
DX: I13.0 Hypertensive heart and chronic kidney disease with heart failure and stage 1 through stage 4 chronic kidney disease, or unspecified chronic kidney disease (principal); I50.33 Acute on chronic diastolic (congestive) heart failure; N18.31 Chronic kidney disease, stage 3a; J96.21 Acute and chronic respiratory failure with hypoxia; I48.91 Unspecified atrial fibrillation; I45.10 Unspecified right bundle-branch block; J44.9 Chronic obstructive pulmonary disease, unspecified; J84.10 Pulmonary fibrosis, unspecified; Z20.822 Contact with and (suspected) exposure to COVID-19; G47.33 Obstructive sleep apnea (adult) (pediatric); E27.40 Unspecified adrenocortical insufficiency; R77.8 Other specified abnormalities of plasma proteins; E05.90 Thyrotoxicosis, unspecified without thyrotoxic crisis or storm; G43.909 Migraine, unspecified, not intractable, without status migrainosus; R00.1 Bradycardia, unspecified; I34.0 Nonrheumatic mitral (valve) insufficiency; I27.20 Pulmonary hypertension, unspecified; Z89.022 Acquired absence of left finger(s); Z96.652 Presence of left artificial knee joint; Z87.891 Personal history of nicotine dependence; Z99.81 Dependence on supplemental oxygen; Z79.899 Other long term (current) drug therapy
CPT/HCPCS: 0241U; 36415; 36600; 51702; 51798; 71045; 80053; 80069; 81001; 82803; 83735; 83880; 84439; 84443; 84481; 84484; 85025; 87086; 93005; 93010; 93306; 94761; 96365; 96372; 96372-59; 96374-59; 96376; 97110-CQ; 97162; 97166; 97530; 97530-CQ; 97535; 99285-25; A9270; G0378; J0360; J1644; J1940; J3475

== ENCOUNTER 2020-09-17 21:33 | Emergency (ER) | payer MEDICARE ==
[~2020-09-17] VITALS: Ht 182.9 cm; Wt 104.3 kg
[~2020-09-17 21:33] MED LIST changes: +ALDACTONE25 MG PO; +METOPROLOL TART25 MG PO; +Prinivil10 MG PO
[2020-10-29] MEDS ORDERED: Enulose10 GM/15 M PO (15:46)
[2020-10-29] MEDS ORDERED: ONDA4ODT SL (15:46)
[2020-11-01] MEDS ORDERED: MYLANTA GAS MIN42 MG PO (10:51)
== END 2020-09-18 00:01 | disposition home or self-care (01) ==
LOC: ER 21:33
DX: L25.1 Unspecified contact dermatitis due to drugs in contact with skin (principal); I11.0 Hypertensive heart disease with heart failure; I50.30 Unspecified diastolic (congestive) heart failure; I48.91 Unspecified atrial fibrillation; J44.9 Chronic obstructive pulmonary disease, unspecified; Z79.899 Other long term (current) drug therapy
CPT/HCPCS: 99282

== ENCOUNTER 2020-10-25 07:29 | Emergency (ER) | payer MEDICARE ==
[~2020-10-25] VITALS: Ht 177.8 cm; Wt 90.7 kg
[2020-10-25] MEDS ORDERED: TORS10 PO (08:19)
[2020-10-25 08:39] LABS: Source, Urine Clean Catch
[2020-10-25 08:43] LABS: Appearance, Urine Hazy (Clear); Bilirubin, Urine Neg (Neg); Blood, Urine Neg (Neg); Color, Urine Yellow (P-Yellow); Glucose Qualitative, Urine Neg (Neg); Ketones, Urine Neg (Neg); Leukocyte Esterase, Urine 3+ (Neg); Nitrite, Urine Pos (Neg); Protein, Urine Neg (Neg); Urobilinogen, Urine NORM (Normal)
[2020-10-25 08:47] LABS: BASOPHILS ABSOLUTE AUTO 0.06 K/mm3 (0.00-0.23); BASOPHILS PERCENT AUTO 1 % (0-2); EOSINOPHILS ABSOLUTE AUTO 0.53 K/mm3 (0.00-0.68); EOSINOPHILS PERCENT AUTO 6 % (0-6); Hematocrit 33.6 % (37.0-53.0); Hemoglobin 10.8 g/dL (13.5-17.5); IMMATURE GRAN ABSOLUTE AUTO 0.03 K/mm3 (0.00-0.10); IMMATURE GRAN PERCENT AUTO 0 % (0-1); LYMPHOCYTES ABSOLUTE AUTO 0.99 K/mm3 (0.84-5.20); LYMPHOCYTES PERCENT AUTO 11 % (21-46); MONOCYTES ABSOLUTE AUTO 0.86 K/mm3 (0.16-1.47); MONOCYTES PERCENT AUTO 9 % (4-13); Mean Corpuscular HGB 28.1 pg (26.0-34.0); Mean Corpuscular HGB Conc 32.1 g/dL (31.5-36.5); Mean Corpuscular Volume 87 fL (80-100); Mean Platelet Volume 10.2 fL (9.1-12.4); NEUTROPHILS ABSOLUTE AUTO 6.82 K/mm3 (1.96-9.15); NEUTROPHILS PERCENT AUTO 73 % (41-73); Platelet Count 223 K/mm3 (150-400); RDW Standard Deviation 47.8 fL (35.1-46.3); Red Blood Cell Count 3.85 M/mm3 (4.30-5.90); White Blood Cell Count 9.29 K/mm3 (4.00-11.30)
[2020-10-25 08:51] LABS: Bacteria Many /hpf; Red Blood Cells, Urine 0-2 /hpf (0-2); Squamous Epithelial Cells Rare /hpf (Few); White Blood Cells, Urine TNTC /hpf (0-5)
[2020-10-25 09:07] LABS: Alanine Aminotransfer (ALT/SGP 16 U/L (12-78); Albumin, Blood 3.1 g/dL (3.4-5.0); Albumin/Globulin Ratio 0.6 (0.8-1.8); Alk Phos 129 U/L (50-136); Anion Gap 5 mmol/L (6-16); Aspartate Aminotrans (AST/SGOT 12 U/L (12-37); Bilirubin, Total 0.6 mg/dL (0.1-1.0); Blood Urea Nitrogen 17 mg/dL (8-24); Bun/Creatinine Ratio 17.3 (12.0-20.0); CO2, Blood 25 mmol/L (21-32); Calcium, Blood 8.8 mg/dL (8.5-10.1); Chloride, Blood 97 mmol/L (98-108); Creatinine, Blood 0.98 mg/dL (0.60-1.20); Glomerular Filtration Rate >60 (60-); Glucose, Blood 105 mg/dL (70-99); Sodium, Blood 127 mmol/L (136-145); Total Protein, Blood 8.1 g/dL (6.4-8.2)
[2020-10-25] MEDS ORDERED: CEPH500 PO (13:58)
[2020-10-29] MEDS ORDERED: ONDA4ODT SL (15:46)
[2020-10-29] MEDS ORDERED: Enulose10 GM/15 M PO (15:46)
== END 2020-10-25 12:10 | disposition home or self-care (01) ==
LOC: ER 07:29
PROVIDERS: Emergency Medicine
DX: N13.6 Pyonephrosis (principal); R33.9 Retention of urine, unspecified; I48.91 Unspecified atrial fibrillation; I10 Essential (primary) hypertension; J44.9 Chronic obstructive pulmonary disease, unspecified; Z79.899 Other long term (current) drug therapy; Z87.891 Personal history of nicotine dependence
CPT/HCPCS: 36415; 51702; 74177; 80053; 81001; 83690; 84484; 85025; 87077; 87086; 87186; 93005; 93010; 99284-25; J7030; Q9967

== ENCOUNTER 2020-12-13 10:46 | Day surgery (SDC) | payer MEDICARE, OTHER ==
[~2020-12-13 10:46] MED LIST changes: +Enulose10 GM/15 M PO; +MYLANTA GAS MIN42 MG PO; +ONDA4ODT SL; +TORS10 PO
[2020-12-13] MEDS ORDERED: METHIMAZOLE PO (12:59)
[2020-12-13] MEDS ORDERED: FLUT1DIS2 INH (13:00)
[2020-12-13] MEDS ORDERED: ELIQUIS5 MG PO (13:00)
[2020-12-13] MEDS ORDERED: OMEP20ER PO (13:01)
[2020-12-13] MEDS ORDERED: ALBU8HFA2 INH (13:01)
[2020-12-13] MEDS ORDERED: SILD50TA PO (13:01)
--- NOTE | 2020-12-13 13:03 | NUR ---
MADE NEXT CATHETER CHANGE APPOINTMENT FOR 01/12/21 AT 0900. THE RICHARDSON THAT WAS REMOVED TODAY WAS THE ORIGINAL CATHETER THAT WAS PLACED SEVERAL MONTHS AGO. EDUCATED PT AND .
== END 2020-12-13 11:24 | disposition home or self-care (01) ==
LOC: ATC 10:46
DX: Z46.6 Encounter for fitting and adjustment of urinary device (principal); R33.9 Retention of urine, unspecified; I48.91 Unspecified atrial fibrillation; E05.00 Thyrotoxicosis with diffuse goiter without thyrotoxic crisis or storm; I27.81 Cor pulmonale (chronic); I11.0 Hypertensive heart disease with heart failure; I50.30 Unspecified diastolic (congestive) heart failure; J96.21 Acute and chronic respiratory failure with hypoxia; E27.40 Unspecified adrenocortical insufficiency; R77.8 Other specified abnormalities of plasma proteins; J44.9 Chronic obstructive pulmonary disease, unspecified; G47.33 Obstructive sleep apnea (adult) (pediatric); J84.10 Pulmonary fibrosis, unspecified; Z87.891 Personal history of nicotine dependence; Z89.029 Acquired absence of unspecified finger(s)
CPT/HCPCS: 51702

== ENCOUNTER 2021-01-08 10:26 | Emergency (ER) | payer MEDICARE ==
[~2021-01-08] VITALS: Ht 182.9 cm; Wt 101.2 kg
[~2021-01-08 10:26] MED LIST changes: +ALBU8HFA2 INH; +METHIMAZOLE PO; +SILD50TA PO
[2021-01-08 11:51] LABS: Source, Urine Catheter
[2021-01-08 11:58] LABS: Appearance, Urine Clear (Clear); Bilirubin, Urine Neg (Neg); Blood, Urine 2+ (Neg); Glucose Qualitative, Urine Neg (Neg); Ketones, Urine Neg (Neg); Leukocyte Esterase, Urine 3+ (Neg); Nitrite, Urine Neg (Neg); Protein, Urine Neg (Neg); Urobilinogen, Urine NORM (Normal)
[2021-01-08 12:39] LABS: Color, Urine Pale Yellow (P-Yellow)
[2021-01-08 12:41] LABS: White Blood Cells, Urine 50-100 /hpf (0-5)
[2021-01-08 12:42] LABS: Bacteria Few /hpf; Squamous Epithelial Cells Not Seen /hpf (Few)
== END 2021-01-08 12:25 | disposition home or self-care (01) ==
LOC: ER 10:26
PROVIDERS: Emergency Medicine
DX: T83.031A Leakage of indwelling urethral catheter, initial encounter (principal); Z79.899 Other long term (current) drug therapy; Z79.01 Long term (current) use of anticoagulants; Z87.891 Personal history of nicotine dependence
CPT/HCPCS: 51702; 81001; 87077; 87086; 87186; 99283-25

== ENCOUNTER 2021-02-07 10:15 | Day surgery (SDC) | payer MEDICARE, OTHER ==
--- NOTE | 2021-02-07 11:16 | NUR ---
REDNESS AND YEAST SMELL COMING FROM ABDOMINAL FOLD. AREA CLEANSED AND DRIED. PT AND SO EDUCATED REGARDING WATCHING AREA DAILY AND CLEANING AND DRYING AREA DAILY TO PREVENT OPEN SORES. NO OPEN SORES NOTED AT THIS TIME. PT AND SO VERBALIZED UNDERSTANDING.
== END 2021-02-07 10:30 | disposition home or self-care (01) ==
LOC: ATC 10:15
DX: Z46.6 Encounter for fitting and adjustment of urinary device (principal); N40.0 Benign prostatic hyperplasia without lower urinary tract symptoms; E05.00 Thyrotoxicosis with diffuse goiter without thyrotoxic crisis or storm; I11.0 Hypertensive heart disease with heart failure; I50.30 Unspecified diastolic (congestive) heart failure; N40.1 Benign prostatic hyperplasia with lower urinary tract symptoms; R33.8 Other retention of urine; I27.81 Cor pulmonale (chronic); I48.91 Unspecified atrial fibrillation; J44.9 Chronic obstructive pulmonary disease, unspecified; G47.33 Obstructive sleep apnea (adult) (pediatric); Z87.891 Personal history of nicotine dependence; Z89.029 Acquired absence of unspecified finger(s)
CPT/HCPCS: 51702

== ENCOUNTER 2021-05-20 06:56 | Inpatient (IN) | payer MEDICARE ==
[~2021-05-20] VITALS: Ht 182.9 cm; Wt 94.3 kg
[2021-05-20 07:59] LABS: BASOPHILS ABSOLUTE AUTO 0.03 K/mm3 (0.00-0.23); BASOPHILS PERCENT AUTO 0 % (0-2); EOSINOPHILS ABSOLUTE AUTO 0.24 K/mm3 (0.00-0.68); EOSINOPHILS PERCENT AUTO 2 % (0-6); Hematocrit 37.5 % (37.0-53.0); IMMATURE GRAN ABSOLUTE AUTO 0.02 K/mm3 (0.00-0.10); IMMATURE GRAN PERCENT AUTO 0 % (0-1); LYMPHOCYTES PERCENT AUTO 14 % (21-46); MONOCYTES ABSOLUTE AUTO 1.21 K/mm3 (0.16-1.47); MONOCYTES PERCENT AUTO 12 % (4-13); Mean Corpuscular HGB 28.4 pg (26.0-34.0); Mean Corpuscular Volume 89 fL (80-100); Mean Platelet Volume 10.6 fL (9.1-12.4); NEUTROPHILS ABSOLUTE AUTO 6.91 K/mm3 (1.96-9.15); NEUTROPHILS PERCENT AUTO 71 % (41-73); Platelet Count 246 K/mm3 (150-400); RDW Coefficient Variation 16.3 % (11.7-14.2); RDW Standard Deviation 52.6 fL (35.1-46.3); Red Blood Cell Count 4.23 M/mm3 (4.30-5.90); White Blood Cell Count 9.81 K/mm3 (4.00-11.30)
[2021-05-20 08:17] LABS: Albumin/Globulin Ratio 0.6 (0.8-1.8); Bilirubin, Total 1.5 mg/dL (0.1-1.0); Bun/Creatinine Ratio 16.3 (12.0-20.0); Calcium, Blood 9.8 mg/dL (8.5-10.1); Creatinine, Blood 1.47 mg/dL (0.60-1.20); Globulin, Blood 4.7 g/dL (2.2-4.0); Potassium, Blood 4.4 mmol/L (3.5-5.5); Total Protein, Blood 7.7 g/dL (6.4-8.2); Troponin I 0.027 ng/mL (0.000-0.040)
[2021-05-20 08:36] LABS: Influenza A, PCR NEGATIVE (NEGATIVE); Influenza B, PCR NEGATIVE (NEGATIVE); Resp Syncytial Virus, PCR NEGATIVE (NEGATIVE); SARS-Cov-2 (COVID-19) PCR, MMC NEGATIVE (NEGATIVE)
[2021-05-20] MEDS ORDERED: METHI10 PO (09:03)
[2021-05-20] MEDS ORDERED: TORSE20 PO (09:04)
[2021-05-20 10:00] LABS: Source, Urine Catheter
[2021-05-20 10:17] LABS: U Amphetamine Screen Not Detected; U Barbituate Screen Not Detected; U Benzodiazapine Screen Not Detected; U Buprenorphine Screen Not Detected; U Cannabinoids Screen Not Detected; U Cocaine Screen Not Detected; U Methadone Screen Not Detected; U Methamphetamine Screen Not Detected; U Opiates Screen Not Detected; U Oxycodone Screen Not Detected; U Phencyclidine Screen Not Detected; U Propoxyphene Screen Not Detected
[2021-05-20 10:20] LABS: Appearance, Urine Clear (Clear); Bilirubin, Urine Neg (Neg); Blood, Urine 2+ (Neg); Color, Urine Yellow (P-Yellow); Glucose Qualitative, Urine Neg (Neg); Ketones, Urine Neg (Neg); Leukocyte Esterase, Urine 1+ (Neg); Nitrite, Urine Neg (Neg); Protein, Urine Neg (Neg); Specific Gravity, Urine 1.005 (1.003-1.022); Urobilinogen, Urine NORM (Normal)
[2021-05-20 10:56] LABS: Bacteria Few /hpf; Hyaline Casts 0-2 /lpf (0-2); Red Blood Cells, Urine 0-2 /hpf (0-2); Squamous Epithelial Cells Not Seen /hpf (Few)
--- NOTE | 2021-05-20 14:00 | NUR ---
PT IS A NEW ADMIT FROM ED,AAOX4,GENERALIZED WEAKNESS DUE TO DISEASE PROCESS, VITALS STABLE, ON 02 VIA N/C 2L AND TOLERATING WELL, GENERAL SKIN TUGOR FAIR, SMALL SPOT WITH DRY SCALP NOTED ON BACK, SLIGHTLY RED ON SURROUNDING ,HOB ELEVATED, RICHARDSON IN PLACE AND PATENT, PRESENT ON ADMISSION, DRAINING CLEAR URINE, BUT SOME PUS NOTED AT TIP OF PENIS, PT C/O GENERALISED PAIN, CALL LIGHT IN PLACE,ALL ADMISSION ASSESMENT DONE.WILL CONT TO MONITOR.
--- NOTE | 2021-05-21 04:33 | NUR ---
SHIFT SUMMARY: VERY ILL APPEARING MARCOS. REPORTING HE HAS NOT FELT WELL IN SEVERAL WEEKS. NOT ABLE TO PINPOINT WHAT DOES NOT FEEL RIGHT. SOB ON OCCATION AND WHEN IT APPEARS HIS HR CONVERTS INTO AFIB. ACCORDING TO TELE HE HAS BOUNCED IN AND OUT OF AFIB SEVERAL TIMES THIS SHIFT. HE ALSO HAS BEEN BRADYCARDIC DOWN TO 49. HE DID C/O OF CHEST PAIN ONCE BUT HE WAS HAVING HICKUPS AT WHICH SODA WAS GIVEN TO HELP RELEASE GAS AND CHEST PAIN WAS RELEIVED. VS HAVE BEEN STABLE. RICHARDSON HAS BEEN PATENT AND DRAINING. +2 EDEMA TO BLE. SCD'S IN PLACE. NITRO TO CHEST PER ORDERS. WILL CONTINUE TO MONITOR. CALL LIGHT IN REACH.
[2021-05-21 05:33] LABS: Calcium, Blood 8.8 mg/dL (8.5-10.1); Creatinine, Blood 1.45 mg/dL (0.60-1.20); Magnesium, Blood 1.5 mg/dL (1.6-2.4); Potassium, Blood 4.8 mmol/L (3.5-5.5)
--- NOTE | 2021-05-21 11:55 | NUR ---
PT MEDIACTED THIS MORNING WITH ZOFRAN FOR NAUSEA, BUT CONTINUE TO BE ANXIOUS,REFUSED SCDS,POOR APPETITE, MD NOTIFIED AND ORDERED HYDROXYZINE FOR PRN ANXIETY.VITALS WNL,LOW MAG LEVELS REPLACED, CALL LIGHT WITHIN REACH WILL CONT TO MONITOR.
--- NOTE | 2021-05-21 16:50 | NUR ---
PT HAD AN EKG DONE STAT AND RESULTS RELATED TO MD, STARTED ON IV ANTIBIOTICS, MEDICATION FOR ANXIETY RECIEVED AND PT SLEPT AND CALM AT THIS MOMENT.NO ACUTE DISTRESS NOTED, CALL LIGHT WITHIN REACH AND CONTINUE TO MONITOR.
[2021-05-22 05:28] LABS: BASOPHILS ABSOLUTE AUTO 0.03 K/mm3 (0.00-0.23); BASOPHILS PERCENT AUTO 0 % (0-2); EOSINOPHILS PERCENT AUTO 1 % (0-6); Hematocrit 34.6 % (37.0-53.0); Hemoglobin 11.1 g/dL (13.5-17.5); IMMATURE GRAN ABSOLUTE AUTO 0.06 K/mm3 (0.00-0.10); IMMATURE GRAN PERCENT AUTO 1 % (0-1); LYMPHOCYTES PERCENT AUTO 10 % (21-46); MONOCYTES ABSOLUTE AUTO 1.69 K/mm3 (0.16-1.47); MONOCYTES PERCENT AUTO 14 % (4-13); Mean Corpuscular HGB Conc 32.1 g/dL (31.5-36.5); Mean Corpuscular Volume 87 fL (80-100); Mean Platelet Volume 11.1 fL (9.1-12.4); NEUTROPHILS ABSOLUTE AUTO 8.98 K/mm3 (1.96-9.15); NEUTROPHILS PERCENT AUTO 75 % (41-73); Platelet Count 248 K/mm3 (150-400); RDW Coefficient Variation 15.7 % (11.7-14.2); RDW Standard Deviation 49.5 fL (35.1-46.3); Red Blood Cell Count 3.97 M/mm3 (4.30-5.90); White Blood Cell Count 12.06 K/mm3 (4.00-11.30)
[2021-05-22 05:59] LABS: Bun/Creatinine Ratio 23.1 (12.0-20.0); Calcium, Blood 8.6 mg/dL (8.5-10.1); Creatinine, Blood 1.56 mg/dL (0.60-1.20); Potassium, Blood 4.3 mmol/L (3.5-5.5)
--- NOTE | 2021-05-22 06:08 | NUR ---
MIXER WET POUR SUMMARY PT AAOX3 AND VERY ANXIOUS. GIVEN ATARAX X2 THIS SHIFT WITH SOME GOOD EFFECT. PT RESTLESS THROUGH THE NIGHT, CALLING OFTEN FOR HELP WITH REPOSITIONING BECAUSE HE CAN'T GET COMFORTABLE. PT HAS VERY POOR APPETITE AND DID NOT EAT ANY OF HIS DINNER. WAS ABLE TO DRINK 1/3 OF BOTTLE OF ENSURE. PT STATES HE GETS EPIGASTRIC PAIN WHEN HE DRINKS ANYTHING. MEDICATED FOR NAUSEA X1, NO EMESIS NOTED THIS SHIFT. VSS, WILL CONTINUE TO MONITOR.
--- NOTE | 2021-05-22 08:56 | NUR ---
Echocardiogram completed.
--- NOTE | 2021-05-22 10:23 | NUR ---
PT RECEIVED IN BED THIS MORNING AAOX2 TO 3, FACIAL EXPRESSION DISPLAYED DISCOMTORT AND PAIN.PT REPOSITIONED AND PAIN MEDS GIVEN INCLUDING NAUSEA MEDS.TOLERATED WELL, POOR PO INTAKE, CALL LIGHT WITHIN REACH AND MONITORING CONTINUES.
--- NOTE | 2021-05-22 16:51 | NUR ---
PT CONTINUE NOT TO FEEL WELL, UPDATED ON PT, LABS ORDERED INCLUDING ECHO CARDIGRAM, PT STARTED ON HEPARIN DRIP, LOADING DOSE GIVEN AFTER VERIFIED BY CN, HEPARIN INFUSLING ORDERED.PT CALM AFTER THE PAIN MEDS,RICHARDSON PATENT DRAINING CLEAR YELLOW, WILL CONTINUE TO MONITOR
--- NOTE | 2021-05-22 21:47 | NUR ---
25MG PHENERGAN GIVEN FOR C/O HEARTBURN AND NAUSEA. PATIENT WAS ASKING FOR MORE TUMS, HOWEVER, THEY WERE ONLY ORDERED WITH MEALS. EXPLAINED THAT THEY WOULD NOT HELP WITH HIS NAUSEA. WILL MONITOR PATIENT FOR OUTCOME AFTER DOSE OF PHENERGAN
--- NOTE | 2021-05-22 23:49 | NUR ---
Per pharmacy, heparin gtt turned off at 2345 for critical high ptt. will restart in one hour at 15 units per kg per hour per new order
--- NOTE | 2021-05-23 05:11 | NUR ---
PATIENT HAD SEVERAL EPISODES OF ANXIETY OVERNIGHT. EACH TIME HE WOULD, HE WOULD WRESTLE HIMSELF AROUND THE BED AND WORK AGAINST STAFF ATTEMPTING TO ASSIST HIM INTO A MORE THERAPUTIC POSITION TO CATCH HIS BREATH. PHENERGAN GIVEN ONCE FOR COMPLAINTS OF NAUSEA AND HEARTBURN. PATIENT WOULD APPRECIATE AN ADDITIONAL DOSE OF TUMS AT HS THIS IS HIS NORM. HEPARIN CURRENTLY RUNNING AT 15 UNITS/KG/HOUR. NEXT COAGS AT 0700. RASH IN EACH AXCILLARY AREA CLEANSED AND GIVEN A GOOD DOSE OF NYSTATIN POWDER.
--- NOTE | 2021-05-23 10:07 | NUR ---
PT CONTINUE ON HEPARIN DRIP, PHAMRMACY CALLED TO CONTINUE WITH SAME DOSE,15 NUITS, 28.2ML/HR, NEW BAG hung, nuclear test of the lungs done, awaiting chest xray, ordered . pt still continue to feel very sick
--- NOTE | 2021-05-23 10:20 | NUR ---
CHESTB XRAY DONE, PT HAD EMESIS MODERATE AMOUNT OF LIQUID, LLGHT BROWN COLOR WITH SOME STRAWBERRY TINCH LIKE COLOR. MEDICATING FOR N/V NOW.
[2021-05-23 11:02] LABS: BASOPHILS ABSOLUTE AUTO 0.04 K/mm3 (0.00-0.23); BASOPHILS PERCENT AUTO 0 % (0-2); EOSINOPHILS ABSOLUTE AUTO 0.05 K/mm3 (0.00-0.68); EOSINOPHILS PERCENT AUTO 0 % (0-6); Hematocrit 38.8 % (37.0-53.0); Hemoglobin 12.7 g/dL (13.5-17.5); IMMATURE GRAN ABSOLUTE AUTO 0.05 K/mm3 (0.00-0.10); IMMATURE GRAN PERCENT AUTO 0 % (0-1); LYMPHOCYTES ABSOLUTE AUTO 1.17 K/mm3 (0.84-5.20); LYMPHOCYTES PERCENT AUTO 9 % (21-46); MONOCYTES ABSOLUTE AUTO 1.84 K/mm3 (0.16-1.47); MONOCYTES PERCENT AUTO 14 % (4-13); Mean Corpuscular HGB 28.2 pg (26.0-34.0); Mean Corpuscular HGB Conc 32.7 g/dL (31.5-36.5); Mean Corpuscular Volume 86 fL (80-100); Mean Platelet Volume 11.8 fL (9.1-12.4); NEUTROPHILS ABSOLUTE AUTO 10.15 K/mm3 (1.96-9.15); NEUTROPHILS PERCENT AUTO 76 % (41-73); Platelet Count 281 K/mm3 (150-400); RDW Coefficient Variation 15.9 % (11.7-14.2); RDW Standard Deviation 49.5 fL (35.1-46.3)
--- NOTE | 2021-05-23 11:13 | NUR ---
DR KENDALL UPDATED ON PT'S PRESENT CONDITIONS, LOOKS LETHARGIC, VERBALLY RESPONSIVE BUT WILL CLOSES HIS EYES AND CONTINUES STATING L DONT FEEL GOOD, I FEEL LIKE I AM DYING.PT C/O CHEST PAIN, BURNING IN THE CHEST AREA, TUMS GIVEN ORDERED, MD AWARE ODERED TO MOVE PT TO PCU AND NPO. AWAITING FOR BED AT TIS TIME.
[2021-05-23 11:23] LABS: Bun/Creatinine Ratio 29.2 (12.0-20.0); Calcium, Blood 8.8 mg/dL (8.5-10.1); Creatinine, Blood 1.61 mg/dL (0.60-1.20); Potassium, Blood 4.9 mmol/L (3.5-5.5)
--- NOTE | 2021-05-23 12:16 | NUR ---
PT LEFT FOR PCU 14, REPORT GIVEN TO RECIEVING NURSE.
--- NOTE | 2021-05-23 17:54 | NUR ---
SHIFT SUMMARY; IN HOUSE TRANSFER FROM MEDICAL FLOOR. A/A/0X3. VSS, NPO AT THIS TIME DUE TO PENDING GI CONSULT. HEPARIN INFUSING AT 15UNITS/KG PER ORDERS. VERIFIED WITH DR. KENDALL TO CONTINUE HEPARIN. RICHARDSON CATH IN PLACE AND ATTENDS. MEPILEX ON COCCYX AND MID BACK FOR PREVENATIVE. REPOSITIONS SELF IN BED NEEDED. 02 2L, VSS, WILL CONTINUE TO MONITOR AND TREAT UNTIL CHANGE OF SHIFT.
[2021-05-24 05:01] LABS: BASOPHILS ABSOLUTE AUTO 0.04 K/mm3 (0.00-0.23); BASOPHILS PERCENT AUTO 0 % (0-2); EOSINOPHILS ABSOLUTE AUTO 0.04 K/mm3 (0.00-0.68); EOSINOPHILS PERCENT AUTO 0 % (0-6); Hematocrit 36.9 % (37.0-53.0); Hemoglobin 12.1 g/dL (13.5-17.5); IMMATURE GRAN ABSOLUTE AUTO 0.04 K/mm3 (0.00-0.10); IMMATURE GRAN PERCENT AUTO 0 % (0-1); LYMPHOCYTES ABSOLUTE AUTO 1.36 K/mm3 (0.84-5.20); LYMPHOCYTES PERCENT AUTO 11 % (21-46); MONOCYTES ABSOLUTE AUTO 1.77 K/mm3 (0.16-1.47); MONOCYTES PERCENT AUTO 14 % (4-13); Mean Corpuscular HGB 28.3 pg (26.0-34.0); Mean Corpuscular HGB Conc 32.8 g/dL (31.5-36.5); Mean Corpuscular Volume 86 fL (80-100); Mean Platelet Volume 11.1 fL (9.1-12.4); NEUTROPHILS ABSOLUTE AUTO 9.43 K/mm3 (1.96-9.15); NEUTROPHILS PERCENT AUTO 74 % (41-73); Platelet Count 256 K/mm3 (150-400); RDW Coefficient Variation 15.7 % (11.7-14.2); Red Blood Cell Count 4.28 M/mm3 (4.30-5.90); White Blood Cell Count 12.68 K/mm3 (4.00-11.30)
[2021-05-24 05:44] LABS: Bun/Creatinine Ratio 30.4 (12.0-20.0); Calcium, Blood 8.6 mg/dL (8.5-10.1); Creatinine, Blood 1.68 mg/dL (0.60-1.20); Potassium, Blood 4.6 mmol/L (3.5-5.5)
--- NOTE | 2021-05-24 05:56 | NUR ---
SHOFT SUMMARY: PT IRRITABLE THIS SHOFT, WAS ONLY ABLE SLEEP INTERMITENTLY AND HAS MANY C/O ABOUT ROOM, AIR, BED, ETC. UPPPER AIRWAY CONGESTION NOTED, PT ABLE TO COUGH UP SECRETIONS, SWALOWED MEDS WITHOUT DIFFICULTY. BED UP 90* TO PROMOTE SAFE SWALLOWING. TELE SHOWS AFIB, CONTROLLED RATE 50-80'S. HEPAIN GTT CONTINUES, NO CHANGE IN RATE BASED ON AM LABS, 15 UNITS/KG/HR. VSS, C/O CHRONIC INTERMITENT PAIN DUE TO DEGENERATIVE CHANGES IN SHOULDER. ENCOURAGED TURNING AND CHANGING POSITIONS, RICHARDSON DRAING YELLOW URINE TO BSD, SAMIRA SULLIVAN
--- NOTE | 2021-05-24 14:29 | NUR ---
Met with pt today after conference with bedside RN. The pt has acute on chronic CHF, and it exacerbated, which pt has not been able so far to regain his strength from. He is currently bedbound, and tells me he is extremely tired, and this is an ongoing theme for the past year. However, he used to be able to walk unassisted, at least around the house. He states he has been sleeping in a recliner in the living room for over a year, as he can't sleep lying flat any longer. He states this whole situation has been a hard life change, as he was a "[employer]-get[employer]" when he was younger. He also states, "Getting old is really hard, and I just want to give up sometimes". He denies having any suicidal ideations or depression, but just shrugged when I asked if he has any specific things he would like to regain, such as ability to ambulate around the house. Plan to call his , gain better insite into pt's usual ADL's. He did mention he really needs a new recliner chair, that he hasn't been able to sleep well in the chair in months due to it being uncomfortable. He is unable to tell me which medications he normally takes, and calls his CHF "the health thing". Plan to see pt again, continue working to identify pt's goals.
--- NOTE | 2021-05-24 17:44 | NUR ---
SHIFT SUMMARY; ASSUMED CARE AT 0700. A/A/OX4. PT REPORTS NO NAUSEA OR ABD PAIN. DIET ADVANCED TO CLEAR DURING NIGHT, TOLERATING WELL. VSS, REPOSITIONS SELF IN BED NEEDED. WORKED WITH PHYSICAL THERAPY TODAY. STATUS CHANGED TO MEDICAL. AWAITING CONSULT FROM GI. NO ACUTE MEDICAL CHANGES DURING SHIFT. WILL CONTINUE TO MONITOR AND TREAT UNTIL CHANGE OF SHIFT.
[2021-05-25 03:58] LABS: BASOPHILS ABSOLUTE AUTO 0.02 K/mm3 (0.00-0.23); BASOPHILS PERCENT AUTO 0 % (0-2); EOSINOPHILS ABSOLUTE AUTO 0.02 K/mm3 (0.00-0.68); EOSINOPHILS PERCENT AUTO 0 % (0-6); Hematocrit 35.9 % (37.0-53.0); Hemoglobin 11.5 g/dL (13.5-17.5); IMMATURE GRAN ABSOLUTE AUTO 0.03 K/mm3 (0.00-0.10); IMMATURE GRAN PERCENT AUTO 0 % (0-1); LYMPHOCYTES PERCENT AUTO 9 % (21-46); MONOCYTES ABSOLUTE AUTO 1.29 K/mm3 (0.16-1.47); MONOCYTES PERCENT AUTO 14 % (4-13); Mean Corpuscular HGB 27.9 pg (26.0-34.0); Mean Corpuscular Volume 87 fL (80-100); NEUTROPHILS ABSOLUTE AUTO 6.96 K/mm3 (1.96-9.15); NEUTROPHILS PERCENT AUTO 76 % (41-73); NRBC ABSOLUTE 0.03 K/mm3 (0.00-0.02); NRBC Auto 0.3 /100 WBC (0.0-0.2); Platelet Count 241 K/mm3 (150-400); RDW Coefficient Variation 15.7 % (11.7-14.2); Red Blood Cell Count 4.12 M/mm3 (4.30-5.90); White Blood Cell Count 9.12 K/mm3 (4.00-11.30)
[2021-05-25 04:32] LABS: Bun/Creatinine Ratio 30.2 (12.0-20.0); Calcium, Blood 8.2 mg/dL (8.5-10.1); Creatinine, Blood 1.69 mg/dL (0.60-1.20); Potassium, Blood 4.1 mmol/L (3.5-5.5)
--- NOTE | 2021-05-25 05:45 | NUR ---
PT HAD FAIR NIGHT, RESTLESS AND WATCHING TV MOST OF THE NIGHT, ABLE TO VERBALIZE NEEDS, NO C/O PAIN OTHER THAN SHOULDER PAIN WITH MOVEMENT DUE TO ARTHRITIS. VSS, BED LOCKED AND LOW, ABLE TO TURN AND REPOSITION SELF IN BED, BED LOCKED AND LOW, CALL CONNOLLY IN REACH. SAMIRA SULLIVAN
[2021-05-25] MEDS ORDERED: HYDCOR20 PO (15:20)
[2021-05-25] MEDS ORDERED: ACET325 PO (15:27)
[2021-05-25] MEDS ORDERED: CIPR250 PO (15:32)
[2021-05-25] MEDS ORDERED: LOSA25 PO (15:33)
[2021-05-25] MEDS ORDERED: DIFLUCAN100 MG PO (15:34)
[2021-05-25] MEDS ORDERED: MICONAZOLE NIT130 GM TOP (15:35)
[2021-05-25] MEDS ORDERED: SENN187 PO (15:36)
[2021-05-25] MEDS ORDERED: CARAFATE1 GM PO (15:36)
[2021-05-25] MEDS ORDERED: LACT PO (15:37)
[2021-05-25 15:38] LABS: Influenza A, PCR NEGATIVE (NEGATIVE); Influenza B, PCR NEGATIVE (NEGATIVE); Resp Syncytial Virus, PCR NEGATIVE (NEGATIVE); SARS-Cov-2 (COVID-19) PCR, MMC NEGATIVE (NEGATIVE)
--- NOTE | 2021-05-25 18:08 | NUR ---
Assumed care of pt aT 0700.dIET STATUS CHANGED FROM LIQID TO SOFT AND PT HAS TOLERATED WELL. He ate most of his lunch and dinner. Mcnulty was d/c'd this afternoon and pt has had an urge to urinate since then and has produxced 300 ml. He is currently drinking prune juice to encourage a bowel movement as it has been a few days, according to him. Pt is moving to medical floor until arrangements can be made for SNF which should be tomorrow. He is currently on 2-3 L 02 with stats in the upper 90's. He is able to ambulate to the bathroom with assistance and has been sitting up in a chair for most of the day.
--- NOTE | 2021-05-25 18:48 | NUR ---
PT TRANSFERRED TO THE FLOOR AT 1830. RM , DENIES PAIN AND SOB. IS USING URINAL FOR URGENCY SINCE RICHARDSON DC. PT IS ALSO WAITING FOR A BM. PT IS EXPECTED TO DC TO A SNF TOMORROW, BUT NEEDS TO HAVE A BM BEFORE HE LEAVES. WILL CONTINUE TO MONITOR.
--- NOTE | 2021-05-26 03:58 | NUR ---
SHIFT SUMMARY PT ON 3LPM VIA ME. DISCHARGE ORDERS ARE READY, NEGATIVE COVID TEST. PLACEMENT ARRANGED WITH [facility]. WAITING TO HAVE A BOWEL MOVEMENT PRIOR TO D/C. HE REPORTS THAT SINCE HIS RICHARDSON WAS REMOVED HE'S EXPERIENCED URINARY FREQUENCY AND URINARY URGENCY. MANY SMALL VOIDS, TOTALLING 350 ML'S THIS SHIFT. HE HAS BEEN UNABLE TO HAVE A BM. REFUSES SUPPOSITORY OR FURTHER PRUNE JUICE. MEPALEX ON NABEEL PROMINENCES ON SPINE AND COCCYX. IV ACCESS FLUSHES WELL IN RIGHT FOREARM. SBA WITH FWW TO THE BATHROOM. WILL CALL APPROPRIATELY. BED IN LOWEST POSITION, WILL CONTINUE TO MONITOR.
[2021-05-26] MEDS ORDERED: Aspir 8181 MG PO (12:04)
--- NOTE | 2021-05-26 17:10 | NUR ---
SHIFT SUMMARY PATIENT IS ALERT AND ORIENTATED X2-3. PATIENT WAS SUPPOSED TO DISCHARGE TO SNF BUT FAMILY AND PATIENT CHANGED THEIR OPINION AND WAS DISCHARGED TO HOME. PATIENT IS DISCHARGED HOME WITH FAMILY. PATIENT WAS DISCHARGED ON 2LITERS O2. PATIENTS "WE HAVE THE OXYGEN MACHINE IN THE VAN AND AT HOME" NO ACUTE EVENTS THIS SHIFT. PATIENT WAS WHEELED DOWN BY SALVADOR SINGH TO PATIENTS VEHICLE WITH PATIENTS AND DAUGHTER.
== END 2021-05-26 17:33 | disposition home or self-care (01) | DRG 698 ==
LOC: ER 06:56 → ERHOLD 09:21 → MEDS 09:55 → ERHOLD 09:55 → PCU 09:55 → MEDS 12:55 → PCU 05-23 12:15 → MEDS 05-25 18:43
PROVIDERS: Internal Medicine; Nurse Practitioner Acute Care; Student in an Organized Health Care Education/Training Program; ADMIT Internal Medicine
DX: T83.511A Infection and inflammatory reaction due to indwelling urethral catheter, initial encounter (principal); I50.33 Acute on chronic diastolic (congestive) heart failure; J96.01 Acute respiratory failure with hypoxia; N17.9 Acute kidney failure, unspecified; N30.00 Acute cystitis without hematuria; E27.40 Unspecified adrenocortical insufficiency; N13.8 Other obstructive and reflux uropathy; I48.20 Chronic atrial fibrillation, unspecified; E87.1 Hypo-osmolality and hyponatremia; Z23 Encounter for immunization; K20.90 Esophagitis, unspecified without bleeding; E03.9 Hypothyroidism, unspecified; I08.1 Rheumatic disorders of both mitral and tricuspid valves; N18.30 Chronic kidney disease, stage 3 unspecified; B96.5 Pseudomonas (aeruginosa) (mallei) (pseudomallei) as the cause of diseases classified elsewhere; N40.1 Benign prostatic hyperplasia with lower urinary tract symptoms; Z79.899 Other long term (current) drug therapy; J44.9 Chronic obstructive pulmonary disease, unspecified; Z96.652 Presence of left artificial knee joint; Z89.422 Acquired absence of other left toe(s); Z87.891 Personal history of nicotine dependence; Z91.14 Patient's other noncompliance with medication regimen; I27.20 Pulmonary hypertension, unspecified
CPT/HCPCS: 0241U; 36415; 71045; 71250; 78580; 80048; 80053; 81001; 82533; 83735; 83880; 84439; 84443; 84484; 85025; 85379; 85520; 87077; 87086; 87186; 93005; 93010; 93306; 94760; 94762; 96374; 96375; 97110; 97162; 97166; 97530; 97535; 99285-25; A9270; A9540; C9113; J0696; J0744; J1450; J1644; J1720; J1940; J2405; J2550; J3010; J3475

== ENCOUNTER 2021-05-31 06:37 | Emergency (ER) | payer MEDICARE ==
[~2021-05-31] VITALS: Ht 177.8 cm; Wt 90.7 kg
[~2021-05-31 06:37] MED LIST changes: +ACET325 PO; +Aspir 8181 MG PO; +CARAFATE1 GM PO; +CIPR250 PO; +DIFLUCAN100 MG PO; +HYDCOR20 PO; +LACT PO; +LOSA25 PO; +MICONAZOLE NIT130 GM TOP; +SENN187 PO
[2021-05-31 07:38] LABS: Source, Urine Catheter
[2021-05-31 07:40] LABS: Bilirubin, Urine Neg (Neg); Blood, Urine Neg (Neg); Glucose Qualitative, Urine Neg (Neg); Ketones, Urine Neg (Neg); Leukocyte Esterase, Urine 1+ (Neg); Nitrite, Urine Neg (Neg); Protein, Urine Neg (Neg); Specific Gravity, Urine 1.015 (1.003-1.022); Urobilinogen, Urine NORM (Normal)
[2021-05-31 07:41] LABS: Appearance, Urine Clear (Clear); Color, Urine Yellow (P-Yellow)
[2021-05-31 08:06] LABS: Bacteria Rare /hpf; Red Blood Cells, Urine 0-2 /hpf (0-2); Squamous Epithelial Cells Rare /hpf (Few)
[2021-05-31] MEDS ORDERED: CEFD300 PO (08:09)
== END 2021-05-31 08:16 | disposition home or self-care (01) ==
LOC: ER 06:37
PROVIDERS: Emergency Medicine
DX: N39.0 Urinary tract infection, site not specified (principal); Z79.899 Other long term (current) drug therapy; Z79.82 Long term (current) use of aspirin; I11.0 Hypertensive heart disease with heart failure; I48.91 Unspecified atrial fibrillation; I50.30 Unspecified diastolic (congestive) heart failure; J44.9 Chronic obstructive pulmonary disease, unspecified; G47.33 Obstructive sleep apnea (adult) (pediatric); Z87.891 Personal history of nicotine dependence
CPT/HCPCS: 51702; 51798; 81001; 87086; 99283-25

== ENCOUNTER 2021-08-05 20:46 | Emergency (ER) | payer MEDICARE ==
[~2021-08-05] VITALS: Ht 182.9 cm; Wt 90.7 kg
[~2021-08-05 20:46] MED LIST changes: +CEFD300 PO
[2021-08-05 21:34] LABS: BASOPHILS ABSOLUTE AUTO 0.05 K/mm3 (0.00-0.23); BASOPHILS PERCENT AUTO 1 % (0-2); EOSINOPHILS ABSOLUTE AUTO 0.72 K/mm3 (0.00-0.68); EOSINOPHILS PERCENT AUTO 9 % (0-6); Hemoglobin 11.3 g/dL (13.5-17.5); IMMATURE GRAN ABSOLUTE AUTO 0.03 K/mm3 (0.00-0.10); IMMATURE GRAN PERCENT AUTO 0 % (0-1); LYMPHOCYTES ABSOLUTE AUTO 2.01 K/mm3 (0.84-5.20); LYMPHOCYTES PERCENT AUTO 24 % (21-46); MONOCYTES ABSOLUTE AUTO 1.22 K/mm3 (0.16-1.47); MONOCYTES PERCENT AUTO 14 % (4-13); Mean Corpuscular HGB 29.1 pg (26.0-34.0); Mean Corpuscular HGB Conc 31.4 g/dL (31.5-36.5); Mean Corpuscular Volume 93 fL (80-100); Mean Platelet Volume 10.9 fL (9.1-12.4); NEUTROPHILS ABSOLUTE AUTO 4.42 K/mm3 (1.96-9.15); NEUTROPHILS PERCENT AUTO 52 % (41-73); Platelet Count 227 K/mm3 (150-400); RDW Coefficient Variation 16.5 % (11.7-14.2); RDW Standard Deviation 55.4 fL (35.1-46.3); Red Blood Cell Count 3.88 M/mm3 (4.30-5.90); White Blood Cell Count 8.45 K/mm3 (4.00-11.30)
[2021-08-05 22:13] LABS: Albumin/Globulin Ratio 0.7 (0.8-1.8); Bilirubin, Total 0.7 mg/dL (0.1-1.0); Bun/Creatinine Ratio 14.1 (12.0-20.0); Calcium, Blood 8.5 mg/dL (8.5-10.1); Creatinine, Blood 1.63 mg/dL (0.60-1.20); Globulin, Blood 4.3 g/dL (2.2-4.0); Potassium, Blood 5.4 mmol/L (3.5-5.5); Total Protein, Blood 7.3 g/dL (6.4-8.2)
== END 2021-08-06 02:16 | disposition home or self-care (01) ==
LOC: ER 20:46
PROVIDERS: Physician Assistant
DX: I11.0 Hypertensive heart disease with heart failure (principal); I50.33 Acute on chronic diastolic (congestive) heart failure; J44.9 Chronic obstructive pulmonary disease, unspecified; I48.91 Unspecified atrial fibrillation; G47.33 Obstructive sleep apnea (adult) (pediatric); Z87.891 Personal history of nicotine dependence; Z79.82 Long term (current) use of aspirin; Z79.899 Other long term (current) drug therapy
CPT/HCPCS: 36415; 71045; 80053; 83880; 84484; 85025; 93005; 93010; A9270

== ENCOUNTER 2021-08-30 10:11 | Emergency (ER) | payer MEDICARE ==
[~2021-08-30] VITALS: Ht 182.9 cm; Wt 99.8 kg
[2021-08-30 10:50] LABS: BASOPHILS ABSOLUTE AUTO 0.04 K/mm3 (0.00-0.23); BASOPHILS PERCENT AUTO 0 % (0-2); EOSINOPHILS PERCENT AUTO 1 % (0-6); Hematocrit 36.4 % (37.0-53.0); Hemoglobin 11.7 g/dL (13.5-17.5); IMMATURE GRAN ABSOLUTE AUTO 0.05 K/mm3 (0.00-0.10); IMMATURE GRAN PERCENT AUTO 0 % (0-1); LYMPHOCYTES PERCENT AUTO 8 % (21-46); MONOCYTES ABSOLUTE AUTO 1.49 K/mm3 (0.16-1.47); MONOCYTES PERCENT AUTO 11 % (4-13); Mean Corpuscular HGB 29.2 pg (26.0-34.0); Mean Corpuscular HGB Conc 32.1 g/dL (31.5-36.5); Mean Corpuscular Volume 91 fL (80-100); Mean Platelet Volume 10.5 fL (9.1-12.4); NEUTROPHILS ABSOLUTE AUTO 10.58 K/mm3 (1.96-9.15); NEUTROPHILS PERCENT AUTO 80 % (41-73); Platelet Count 274 K/mm3 (150-400); RDW Standard Deviation 53.1 fL (35.1-46.3); Red Blood Cell Count 4.01 M/mm3 (4.30-5.90); White Blood Cell Count 13.26 K/mm3 (4.00-11.30)
[2021-08-30 11:12] LABS: Albumin, Blood 3.2 g/dL (3.4-5.0); Albumin/Globulin Ratio 0.7 (0.8-1.8); Bilirubin, Total 1.5 mg/dL (0.1-1.0); Bun/Creatinine Ratio 19.4 (12.0-20.0); Calcium, Blood 8.6 mg/dL (8.5-10.1); Creatinine, Blood 1.65 mg/dL (0.60-1.20); Globulin, Blood 4.9 g/dL (2.2-4.0); Potassium, Blood 4.3 mmol/L (3.5-5.5); Total Protein, Blood 8.1 g/dL (6.4-8.2)
[2021-08-30] MEDS ORDERED: HYDR1TAB94 PO (13:43)
== END 2021-08-30 14:44 | disposition home or self-care (01) ==
LOC: ER 10:11
PROVIDERS: Student in an Organized Health Care Education/Training Program
DX: K80.70 Calculus of gallbladder and bile duct without cholecystitis without obstruction (principal); I48.91 Unspecified atrial fibrillation; I13.10 Hypertensive heart and chronic kidney disease without heart failure, with stage 1 through stage 4 chronic kidney disease, or unspecified chronic kidney disease; I50.30 Unspecified diastolic (congestive) heart failure; E87.1 Hypo-osmolality and hyponatremia; Z87.891 Personal history of nicotine dependence; Z79.01 Long term (current) use of anticoagulants; Z79.82 Long term (current) use of aspirin; Z79.2 Long term (current) use of antibiotics; Z79.899 Other long term (current) drug therapy
CPT/HCPCS: 36415; 71045; 76705; 80053; 83690; 84484; 85025; 93005; 93010; 96374; 96375; 99284-25; A9270; J2270; J2405

== ENCOUNTER 2021-09-15 10:30 | Emergency (ER) | payer MEDICARE ==
[~2021-09-15] VITALS: Ht 182.9 cm; Wt 105.2 kg
[~2021-09-15 10:30] MED LIST changes: +Cortef5 MG PO; -HYDCOR20 PO
[2021-09-15 11:17] LABS: BASOPHILS ABSOLUTE AUTO 0.07 K/mm3 (0.00-0.23); BASOPHILS PERCENT AUTO 1 % (0-2); EOSINOPHILS ABSOLUTE AUTO 0.61 K/mm3 (0.00-0.68); EOSINOPHILS PERCENT AUTO 7 % (0-6); Hematocrit 38.1 % (37.0-53.0); Hemoglobin 12.3 g/dL (13.5-17.5); IMMATURE GRAN ABSOLUTE AUTO 0.03 K/mm3 (0.00-0.10); IMMATURE GRAN PERCENT AUTO 0 % (0-1); LYMPHOCYTES ABSOLUTE AUTO 1.39 K/mm3 (0.84-5.20); LYMPHOCYTES PERCENT AUTO 15 % (21-46); MONOCYTES ABSOLUTE AUTO 1.02 K/mm3 (0.16-1.47); MONOCYTES PERCENT AUTO 11 % (4-13); Mean Corpuscular HGB 28.6 pg (26.0-34.0); Mean Corpuscular HGB Conc 32.3 g/dL (31.5-36.5); Mean Corpuscular Volume 89 fL (80-100); Mean Platelet Volume 10.6 fL (9.1-12.4); NEUTROPHILS ABSOLUTE AUTO 5.92 K/mm3 (1.96-9.15); NEUTROPHILS PERCENT AUTO 66 % (41-73); Platelet Count 187 K/mm3 (150-400); RDW Coefficient Variation 16.8 % (11.7-14.2); RDW Standard Deviation 53.5 fL (35.1-46.3); White Blood Cell Count 9.04 K/mm3 (4.00-11.30)
[2021-09-15 11:46] LABS: Albumin/Globulin Ratio 0.6 (0.8-1.8); Bilirubin, Total 2.6 mg/dL (0.1-1.0); Bun/Creatinine Ratio 28.1 (12.0-20.0); Calcium, Blood 8.7 mg/dL (8.5-10.1); Creatinine, Blood 1.53 mg/dL (0.60-1.20); Globulin, Blood 5.2 g/dL (2.2-4.0); Total Protein, Blood 8.2 g/dL (6.4-8.2)
[2021-09-15 11:54] LABS: Source, Urine Clean Catch
[2021-09-15 12:02] LABS: Bilirubin, Urine Neg (Neg); Blood, Urine 4+ (Neg); Glucose Qualitative, Urine Neg (Neg); Ketones, Urine Neg (Neg); Leukocyte Esterase, Urine 3+ (Neg); Nitrite, Urine Neg (Neg); Protein, Urine 2+ (Neg); Specific Gravity, Urine 1.015 (1.003-1.022); Urobilinogen, Urine 3+ (Normal); pH, Urine 6.5 (5.0-8.0)
[2021-09-15 12:20] LABS: Appearance, Urine Hazy (Clear); Color, Urine Pale Yellow (P-Yellow)
[2021-09-15 12:22] LABS: Red Blood Cells, Urine 25-50 /hpf (0-2)
[2021-09-15 12:23] LABS: Bacteria Few /hpf
[2021-09-15 12:24] LABS: Yeast/Fungi Urine Few /hpf
[2021-09-15 12:25] LABS: Mucus Light (0-Heavy); Squamous Epithelial Cells Rare /hpf (Few); WBC Cast 0-2 /lpf (0)
[2021-09-15 12:35] LABS: Influenza A, PCR NEGATIVE (NEGATIVE); Influenza B, PCR NEGATIVE (NEGATIVE); Resp Syncytial Virus, PCR NEGATIVE (NEGATIVE); SARS-Cov-2 (COVID-19) PCR, MMC NEGATIVE (NEGATIVE)
[2021-09-15] MEDS ORDERED: ONDA4ODT MM (14:31)
[2021-09-15] MEDS ORDERED: CEFD300 PO (14:31)
[2021-09-15] MEDS ORDERED: PROM12.5S PR (14:31)
== END 2021-09-15 14:49 | disposition home or self-care (01) ==
LOC: ER 10:30
PROVIDERS: Physician Assistant
DX: T83.511A Infection and inflammatory reaction due to indwelling urethral catheter, initial encounter (principal); N39.0 Urinary tract infection, site not specified; K52.9 Noninfective gastroenteritis and colitis, unspecified; Z20.822 Contact with and (suspected) exposure to COVID-19; I10 Essential (primary) hypertension; I48.91 Unspecified atrial fibrillation; J44.9 Chronic obstructive pulmonary disease, unspecified; Z79.899 Other long term (current) drug therapy
CPT/HCPCS: 0241U; 36415; 51702; 74177; 80053; 81001; 82248; 83735; 85025; 87077; 87086; 87186; 93005; 93010; 96374; 99284-25; A9270; J2765; Q9967

== ENCOUNTER 2021-09-20 17:46 | Inpatient (IN) | payer MEDICARE ==
[~2021-09-20] VITALS: Ht 177.8 cm; Wt 91.3 kg
[~2021-09-20 17:46] MED LIST changes: +PROM12.5S PR
[2021-09-20 18:12] LABS: BASOPHILS PERCENT AUTO 1 % (0-2); EOSINOPHILS PERCENT AUTO 7 % (0-6); Hematocrit 29.8 % (37.0-53.0); Hemoglobin 9.7 g/dL (13.5-17.5); IMMATURE GRAN ABSOLUTE AUTO 0.04 K/mm3 (0.00-0.10); IMMATURE GRAN PERCENT AUTO 0 % (0-1); LYMPHOCYTES ABSOLUTE AUTO 1.23 K/mm3 (0.84-5.20); LYMPHOCYTES PERCENT AUTO 12 % (21-46); MONOCYTES ABSOLUTE AUTO 1.16 K/mm3 (0.16-1.47); MONOCYTES PERCENT AUTO 11 % (4-13); Mean Corpuscular HGB 29.1 pg (26.0-34.0); Mean Corpuscular HGB Conc 32.6 g/dL (31.5-36.5); Mean Corpuscular Volume 90 fL (80-100); NEUTROPHILS ABSOLUTE AUTO 7.34 K/mm3 (1.96-9.15); NEUTROPHILS PERCENT AUTO 70 % (41-73); Platelet Count 188 K/mm3 (150-400); RDW Standard Deviation 54.1 fL (35.1-46.3); Red Blood Cell Count 3.33 M/mm3 (4.30-5.90); White Blood Cell Count 10.57 K/mm3 (4.00-11.30)
[2021-09-20 18:37] LABS: Albumin, Blood 2.5 g/dL (3.4-5.0); Albumin/Globulin Ratio 0.5 (0.8-1.8); Bilirubin, Total 1.1 mg/dL (0.1-1.0); Bun/Creatinine Ratio 29.7 (12.0-20.0); Calcium, Blood 8.1 mg/dL (8.5-10.1); Creatinine, Blood 1.72 mg/dL (0.60-1.20); Globulin, Blood 4.7 g/dL (2.2-4.0); Potassium, Blood 4.8 mmol/L (3.5-5.5); Total Protein, Blood 7.2 g/dL (6.4-8.2)
--- NOTE | 2021-09-21 01:14 | NUR ---
ADMITTED THIS PT. AT 2240 ON 09/20/21 FROM ED. ALERT & ORIENTED TO HIMSELF ONLY & GARBLED SPEECH. WITH CHRONIC RICHARDSON CATHETER DRAINING YELLOW URINE. SCABS TO ALL EXTREMITIES, CHEST, ABDOMEN, LOWER BACK & A FEW AT FACIAL & NECK AREA. NONPITTING EDEMA TO BLE, PADILLA HOSE APPLIED PER MD ORDER, CANCELED SCDs NOTED APPLIED IN ASSESSMENT. ORIENTED PT. IN THE ROOM, INSTRUCTED TO USE THE CALL LIGHT FOR ANY NEEDS,CLWR. ROUNDING & TURNING PER PROTOCOL THEN PRN. ONLY LOWER DENTURES FOUND IN THE MOUTH, REMOVED & PLACED IN DENTURE CUP WITH WATER & HEALTH INFORMATION INTERNSHIP. ATTENDS PLACED & WILL KEEP PT. CLEAN & DRY. NO ACUTE CHANGES NOTED. NPO SINCE ADMISSION PER MD ORDER. WILL CONTINUE TO MONITOR.CN NOTIFIED OF PT'S SCABS, WILL TAKE PICTURES SOON CAMERA WILL BE AVAILABLE.
[2021-09-21 01:23] LABS: Source, Urine Foley catheter
[2021-09-21 01:26] LABS: Bilirubin, Urine Neg (Neg); Blood, Urine 2+ (Neg); Glucose Qualitative, Urine Neg (Neg); Ketones, Urine Neg (Neg); Leukocyte Esterase, Urine 1+ (Neg); Nitrite, Urine Neg (Neg); Protein, Urine 1+ (Neg); Specific Gravity, Urine 1.005 (1.003-1.022); Urobilinogen, Urine NORM (Normal)
[2021-09-21 01:32] LABS: Appearance, Urine Clear (Clear); Bacteria Not Seen /hpf; Color, Urine Yellow (P-Yellow); Squamous Epithelial Cells Not Seen /hpf (Few); White Blood Cells, Urine 0-2 /hpf (0-5)
[2021-09-21 04:31] LABS: BASOPHILS ABSOLUTE AUTO 0.02 K/mm3 (0.00-0.23); BASOPHILS PERCENT AUTO 0 % (0-2); EOSINOPHILS ABSOLUTE AUTO 0.01 K/mm3 (0.00-0.68); EOSINOPHILS PERCENT AUTO 0 % (0-6); Hematocrit 20.1 % (37.0-53.0); Hemoglobin 6.6 g/dL (13.5-17.5); IMMATURE GRAN ABSOLUTE AUTO 0.06 K/mm3 (0.00-0.10); IMMATURE GRAN PERCENT AUTO 1 % (0-1); LYMPHOCYTES ABSOLUTE AUTO 0.43 K/mm3 (0.84-5.20); LYMPHOCYTES PERCENT AUTO 5 % (21-46); MONOCYTES ABSOLUTE AUTO 0.33 K/mm3 (0.16-1.47); MONOCYTES PERCENT AUTO 4 % (4-13); Mean Corpuscular HGB 29.7 pg (26.0-34.0); Mean Corpuscular HGB Conc 32.8 g/dL (31.5-36.5); Mean Corpuscular Volume 91 fL (80-100); Mean Platelet Volume 10.9 fL (9.1-12.4); NEUTROPHILS ABSOLUTE AUTO 8.22 K/mm3 (1.96-9.15); NEUTROPHILS PERCENT AUTO 91 % (41-73); Platelet Count 141 K/mm3 (150-400); RDW Coefficient Variation 17.2 % (11.7-14.2); Red Blood Cell Count 2.22 M/mm3 (4.30-5.90); White Blood Cell Count 9.07 K/mm3 (4.00-11.30)
--- NOTE | 2021-09-21 04:36 | NUR ---
0330 PT. HAD A MODERATE/MEDIUM BM OF SOFT,FORMED, MAROON REDDISH COLORED STOOL. WILL NOTIFY
[2021-09-21 04:49] LABS: Bun/Creatinine Ratio 36.9 (12.0-20.0); Creatinine, Blood 1.41 mg/dL (0.60-1.20); Potassium, Blood 4.7 mmol/L (3.5-5.5)
--- NOTE | 2021-09-21 04:54 | NUR ---
NOTIFIED DR. GARZA OF PT'S MAROON COLORED STOOL OF MEDIUM AMOUNT AT 0330, BLOOD DRAW AT 0348 WITH HGB RESULT OF 6.6, TELEPHONE ORDER RECEIVED TO GIVE 1 UNIT OF PRBC NOW, TORB.
--- NOTE | 2021-09-21 05:24 | NUR ---
CALLED THE PT'S FOR A PHONE CONSENT FOR BLOOD TRANSFUSION PT. IS CONFUSED AT THIS TIME & UNABLE TO SIGN BLOOD TRANSFUSION CONSENT, TELEPHONE CONSENT TO TRANSFUSE BLOOD TO NAIMA ROBLERO RECEIVED FROM THE PT'S JL ROBLERO & WITNESSED BY ME & KAHLIL RN/CN.
--- NOTE | 2021-09-21 06:24 | NUR ---
BT STARTED AT 0556, LUNGS ARE CLEAR, NO REACTIONS NOTED, PT. TOLERATED WELL.
[2021-09-21 10:47] LABS: Influenza A, PCR NEGATIVE (NEGATIVE); Influenza B, PCR NEGATIVE (NEGATIVE); Resp Syncytial Virus, PCR NEGATIVE (NEGATIVE); SARS-Cov-2 (COVID-19) PCR, MMC NEGATIVE (NEGATIVE)
[2021-09-21 13:06] LABS: Hematocrit 19.7 % (37.0-53.0); Hemoglobin 6.7 g/dL (13.5-17.5)
--- NOTE | 2021-09-21 15:48 | NUR ---
PATIENT WITH SECOND UNIT PRBC TRANSFUSING. IS PLEASANT WITH GARBLED SPEECH BUT CAN UNDERSTAND. DR. TEIXEIRA AWARE ENDOSCOPY NOT DONE AT THIS TIME, WAITING FOR 2ND UNIT PRBC TO TRANSFUSE. PATIENT WITH VSS, NO COMPLAINT. HAS HAD MULTIPLE LOOSE STOOL, MAROON IN COLOR, SMALL AMOUNTS. REMAINS NPO. CALL LIGHT IN REACH.
--- NOTE | 2021-09-21 16:32 | NUR ---
LOTION APPLIED TO ENTIRE BODY TO COVER SCABS, INCLUDING SCALP, PER PT. REQUEST. NOTED ONE SCAB ON R SHOULDER SLIGHTLY BLEEDING.
--- NOTE | 2021-09-21 17:28 | NUR ---
SECOND UNIT PRBCS INFUSED AND LAB HERE TO DRAW H&H. PATIENT DENIES PAIN OR NAUSEA AT THIS TIME.
[2021-09-21 17:30] LABS: Hemoglobin 7.3 g/dL (13.5-17.5)
--- NOTE | 2021-09-21 19:56 | NUR ---
09/21/211955 Peggy Sweeney MONITOR INTACT WITH CONTINUOUS PULSE OXIMETRY AND INTERMITTENT BP. ANESTHSIA CARE FOR EGD PROVIDED BY DR BUI.
--- NOTE | 2021-09-21 22:09 | NUR ---
BT STARTED AT 2206, LUNGS/BREATH SOUNDS ARE CLEAR, NO REACTION NOTED OF THIS TIME, WILL CONTINUE TO MONITOR.
--- NOTE | 2021-09-21 22:24 | NUR ---
STARTED BT AT A RATE OF 50 ML/HR FOR 15 MINS. THEN 120 ML/HR, NO REACTIONS NOTED, PT. TOLERATED WELL.
--- NOTE | 2021-09-21 22:41 | NUR ---
GUT PULLER NOTIFIED ME OF PT'S HR RATE OF ON THE 140S THAT MACHINE WENT OFF,PT. ASYMPTOMATIC, DENIES CP, CONTINUOUS HR & O2 SAT MONITORING VIA V/S MACHINE, HR FLUCTUATES MOSTLY ON HIGH 50S - 90S, WILL CONTINUE TO MONITOR.
--- NOTE | 2021-09-22 00:52 | NUR ---
0020 REPORT GIVEN TO DERICK ROBERTS RN FOR PT'S TRANSFER TO RM 346, QUESTIONS ANSWERED. 0030 PT. IN ROOM 346, NO ACUTE CHANGES NOTED, 1ST UNIT OF BLOOD ON GOING ALMOST FINISHED. PT. RECEIVED BY PRIMARY RN & MANAGER MARKET DEVELOPMENT.
--- NOTE | 2021-09-22 05:22 | NUR ---
PT CAME IN FROM THE SURGICAL UNIT AFTER HAVING AN EGD TODAY TO CONTROL INTERNAL SOURCE OF BLEEDING. PT STILL NOTED TO HAVE BLOODY STOOLS, STOOL SAMPLE SENT THIS AM. PT IS ALERT AND ORIENTED X3-4, PT CAN BE SLIGHTLY CONFUSED AT TIMES. PT ON 3L NC SATTING >95, NO TELE MONITORING, BLE EDEMA. PT DID RECIEVE MULTIPLE BLOOD TRANSFUSIONS THE PAST COUPLE OF DAYS. TONIGHT PT RECIEVED 2 UNITS OF PRBC'S, TOLERATED WELL WITH NO REACTION. OTHERWISE VITALS HAVE BEEN STABLE, NO ACUTE EVENTS OVERNIGHT.
[2021-09-22] MEDS ORDERED: Atarax10 MG PO ×2 (06:04→06:05)
[2021-09-22] MEDS ORDERED: SPIRONOLACTONE25 MG PO (06:15)
[2021-09-22 06:44] LABS: Hematocrit 22.3 % (37.0-53.0); Hemoglobin 7.5 g/dL (13.5-17.5)
[2021-09-22 08:38] LABS: Hematocrit 23.5 % (37.0-53.0); Hemoglobin 7.9 g/dL (13.5-17.5)
[2021-09-22 14:15] LABS: Hematocrit 21.6 % (37.0-53.0); Hemoglobin 7.2 g/dL (13.5-17.5)
--- NOTE | 2021-09-22 16:02 | NUR ---
SHIFT SUMMARY PT AxOx3 WITH INTERMITTENT CONFUSION. PT PLEASANT AND COOPERATIVE WITH CARE. PT HAD 2 LARGE DARK, LOOSE MAROON BM THIS SHIFT. STOOL SAMPLE COLLECTED FOR TESTING. H PYLORI NEG. LAST HGB 7.2. PT BREATHING WITHOUT DIFFICULTY ON 3L O2 VIA NC. PT DENIES ANY PAIN. TOLERATING CLEAR LIQUID DIET. VITALS REVIEWED. PT CURRENTLY RESTING IN BED WITH CALL LIGHT IN REACH. DENIES ANY NEEDS AT THIS TIME.
[2021-09-22 20:31] LABS: Hematocrit 20.9 % (37.0-53.0)
[2021-09-23 02:11] LABS: Hematocrit 22.4 % (37.0-53.0); Hemoglobin 7.5 g/dL (13.5-17.5)
[2021-09-23 02:28] LABS: Anion Gap 6 mmol/L (6-16); Blood Urea Nitrogen 48 mg/dL (8-24); Bun/Creatinine Ratio 32.9 (12.0-20.0); CO2, Blood 26 mmol/L (21-32); Calcium, Blood 7.5 mg/dL (8.5-10.1); Chloride, Blood 106 mmol/L (98-108); Creatinine, Blood 1.46 mg/dL (0.60-1.20); Glomerular Filtration Rate 46 (60-); Glucose, Blood 130 mg/dL (70-99); Phosphorus, Blood 2.8 mg/dL (2.5-4.9); Potassium, Blood 3.6 mmol/L (3.5-5.5); Sodium, Blood 138 mmol/L (136-145)
--- NOTE | 2021-09-23 04:00 | NUR ---
SHIFT SUMMARY ADMITTED FOR GI BLEED. FULL CODE. UPPER EGD PERFORMED REVEALING ULCER. GI CONSULT IS DR. INIGUEZ. PLAN IS FOR DC HOME W/FAMILY. PROTONIX INFUSING ORDERED. NO BM'S THIS SHIFT SO FAR. MAROON STOOLS REPORTED ON PREVIOUS SHIFT. 1 UNIT OF PRBC'S GIVEN THIS SHIFT ORDERED. CHRONIC RICHARDSON CATHETER IN PLACE. HE IS ON A CLEAR LIQUID DIET AND FREQUENTLY REQUESTS THAT HIS DIET BE ADVANCED.
[2021-09-23 07:57] LABS: Hematocrit 22.8 % (37.0-53.0); Hemoglobin 7.6 g/dL (13.5-17.5)
--- NOTE | 2021-09-23 11:50 | NUR ---
MD CALL DR TEIXEIRA CALLED TO INFORM OF PT CONDITION. PHYSICAL THERAPIST GOT PT UP TO THE CHAIR. HE REPORTED A DIFFERENCE IN DEMENOR - PT GOT QUIET, LEANED FORWARD AND C/O GENERALISED CHEST PAIN. ASSISTED PT BACK TO BED. CHECKED VITAL SIGNS. NOTED HR IN THE 40S BREIFLY, BACK UP TO 60S/70S. STILL C/O GENERALISED CP, PT POOR HISTORIAN AND POOR DESCRIPTION OF SYMPTOMS. DR TEIXEIRA ORDER TELEMTERY ON PT. ORDER ENTERED AND SCROLL SAW OPERATOR NOTIFIED.
--- NOTE | 2021-09-23 12:11 | NUR ---
TELEMETRY AFIB 60S ON TELEMETRY PER [facility]ADLEY DIRECTOR OF PEDIATRIC REHABILITATION. AFIB NOTED IN THE H&P.
[2021-09-23 12:14] LABS: Hemoglobin 7.7 g/dL (13.5-17.5)
--- NOTE | 2021-09-23 12:45 | NUR ---
RECIEVED A CALL FROM DR TEIXEIRA- SHE HAS CONSULTED DR GARCIA ABOUT THIS PT AND THE PT WILL LIKELY GO TO THE [facility] LATER TODAY, PT MADE NPO AT THIS TIME. HE DID EAT HIS SOUP AND DRANK A LITTLE BIT OF MILK.
--- NOTE | 2021-09-23 12:56 | NUR ---
DR GARCIA CAME TO SEE THE PT AND EXPLAINED THE PLAN FOR PROCEDURE PT TO GO TO [facility] FOR IR PROCEDURE FOR GI BLEED. PT ASKED APPROPRIATE QUESTIONS AND IS OK WITH THE PLANNED PROCEDURE.
--- NOTE | 2021-09-23 15:15 | NUR ---
MR ROBLERO HAS JUST BEEN TRANSFERED TO NATURAL RESOURCE TECHNICIAN/IR PROCEDURAL AREA. PROTONIX GTT STOPPED BY NATURAL RESOURCE TECHNICIAN RN PRIOR TO TRANSFERE, THIS WILL BE TAKEN TO PCU PT PLANNED TO TRANSFERE TO PCU 2 POST PROCEDURE.
--- NOTE | 2021-09-23 16:05 | NUR ---
REPORT TO CAPO HOGAN IN PCU. UNFORTUNATELY PROTONIX IV LINE WASN'T CAPPED SO DISCARDED CONTAMINATED.
--- NOTE | 2021-09-23 16:15 | NUR ---
Assumed care of patient. Report recieved from [facility] floor RN, Lavonne. Patient arrived to PCU 2 via bed, HC staff gave bedside report. Per Orlin AMARO RN patient was brought down and recieved a few coils in an artery that was causing his GI Bleed. The patient has a right groin site with a perclose, Tegaderm dressing CDI. Site is soft and non tender to light palpation. VSS. Patient is lethargic but oriented x3. He denies pain at this time. Patient is in A-Fib in the 60s. LS Dim in the base, biox 95% on 3L via NC. BT+. PPP. Patient has PADILLA hose to BLE. He has scattered scabs to BUE and BLE, he states its from chronic itching. He denies other needs at this time. Call light in reach, ERIK.
--- NOTE | 2021-09-23 17:23 | NUR ---
Patient arrived to PCU from medical floor post IR procedure to place coils in the area the patient had a bleeding ulcer. Patient returned from procedure a little sleepy, but oriented. No C/O pain. He is in A-Fib, which is chronic for him, rate in the 60s-80s. LS Dim in the bases, biox 97% on 3L via nc, which is pts home dose. He has a right grion site with a perclose, site has been soft and non-tender. VSS, post-procedure. Patient denies needs at this time. Will report to oncoming RN.
[2021-09-23 19:58] LABS: Hematocrit 23.9 % (37.0-53.0); Hemoglobin 7.9 g/dL (13.5-17.5)
--- NOTE | 2021-09-23 20:27 | NUR ---
CARE ASSUMPTION: PATIENT IN BED AT 25*. RECEIVED REPORT FROM CAPO JIMENEZ RN. WE ASSESSED THE GROIN SITE TOGETHER WHICH WAS ABSENT OF BLEEDING, SWELLING, OR TENDERNESS. RAISED HOB TO 30*. PATIENT'S TABLE WAS REPOPULATED WITH HIS COMFORT ITEMS. HE STATED IRRITATION WITH THE CLEAR LIQUID DIET, BUT IS WILLING TO EAT WHAT IS GIVEN. PATIENT'S TOP DENTURES WERE LOST IN THE MOVE BETWEEN MULTIPLE FLOORS. CALL PLACED TO [facility] THIS SHIFT TO LOOK FOR THEM. SPOKE WITH DR. GARCIA RE: DIET - NEW ORDER TO ADVANCE DIET TOLERATED.
--- NOTE | 2021-09-24 04:12 | NUR ---
SHIFT SUMMARY: PATIENT'S ANGIO SITE RECOVERING WELL - NO SWELLING, BLEEDING OR TENDERNESS AT SITE. BILATERAL AC IVS WERE REMOVED THIS SHIFT AND REPLACED WITH A FOREARM IV. MEDICATED PER EMAR - NEW 50 ML PROTONIX HUNG AT 0400. NO STOOLS THIS SHIFT AT THE WRITING OF THIS SUMMARY - PATIENT PASSING FLATUS. VSS ON 3L NC. PATIENT ON SOFT DIET R/T MISSING TOP DENTURES AND IS VERY HUNGRY - PROVIDED YOGURTS, APPLESAUCE, AND PUDDINGS. UPPER DENTURES HAVE NOT BEEN LOCATED AT THIS TIME. WILL CONTINUE TO MONITOR AND REPORT TO ONCOMING RN.
[2021-09-24 04:16] LABS: Hematocrit 24.6 % (37.0-53.0); Hemoglobin 7.8 g/dL (13.5-17.5)
[2021-09-24 04:46] LABS: Albumin, Blood 2.2 g/dL (3.4-5.0); Anion Gap 5 mmol/L (6-16); Blood Urea Nitrogen 41 mg/dL (8-24); Bun/Creatinine Ratio 28.9 (12.0-20.0); CO2, Blood 27 mmol/L (21-32); Calcium, Blood 7.7 mg/dL (8.5-10.1); Chloride, Blood 106 mmol/L (98-108); Creatinine, Blood 1.42 mg/dL (0.60-1.20); Glomerular Filtration Rate 48 (60-); Glucose, Blood 110 mg/dL (70-99); Phosphorus, Blood 2.8 mg/dL (2.5-4.9); Potassium, Blood 3.7 mmol/L (3.5-5.5); Sodium, Blood 138 mmol/L (136-145)
--- NOTE | 2021-09-24 07:17 | NUR ---
Bedside report received from SAMIRA Mao. The pt appears to be sleeping. Eyes are closed, respirations are even and unlabored. Protonix gtt infusing at 10 cc/ hour.
--- NOTE | 2021-09-24 07:29 | NUR ---
Pt is alert, oriented to person, place, date and ongoing events. He is very talkative about events which led up to his hospitalization and about his son's work.
--- NOTE | 2021-09-24 07:40 | NUR ---
Assisted up to chair for breakfast. Able to stand independently and use walker, verbal cues and minimal assistance needed.
--- NOTE | 2021-09-24 10:07 | NUR ---
The pt c/o nausea and feeling very tired all of the sudden while in recliner, sitting upright. Adjusted position in the recliner, and gave zofran for nausea. Pt started complaining of chest pain, said that it was going down to his abdomen and his arms. No diaphoresis, no apparent dyspnea noted. Assisted with 1 other RN to get back into bed. EKG done, vital signs checked. Atrial fibrillation, no ST elevation. Pt states that his nausea is going away, but still having some chest discomfort. Called Dr. Rodriguez and new orders received.
--- NOTE | 2021-09-24 10:25 | NUR ---
DR TEIXEIRA HERE
--- NOTE | 2021-09-24 10:59 | NUR ---
pt is sitting up in bed, eating yogurt and fruit, stating that he is feeling so much better. Asking for coffee, but this was discouraged to avoid GI upset.
--- NOTE | 2021-09-24 11:32 | NUR ---
noted WNL troponin level.
--- NOTE | 2021-09-24 13:27 | NUR ---
Pt appears to be sleeping with HOB elevated in upright position. HOB lowered, pt awakened spontaneously, and pillows repositioned to comfort. He closed his eyes, saying that he hopes he doesn't feel really awful again like he did this morning. Says that he feels better now.
--- NOTE | 2021-09-24 13:40 | NUR ---
Micheal says that he wants to get up. Assisted to sit on side of bed, and pt stood on his own to walker and then stepped over to recliner chair. He asked me to dial Ayala's number. He is talking to Ayala at this time.
--- NOTE | 2021-09-24 13:46 | NUR ---
Message left with Tiffany, patient advocate regarding missing upper dentures. Dr. Maki here to see the patient at this time.
--- NOTE | 2021-09-24 18:41 | NUR ---
Ambulated into the bathroom using walker, with standby assistance to have BM. One medium sized maroon stool. Walked back to the recliner chair, chair alarm on.
--- NOTE | 2021-09-24 20:25 | NUR ---
CARE ASSUMPTION: RECEIVED REPORT FROM IMELDA PATTERSON RN. PATIENT IN CHAIR WITH CALL LIGHT IN REACH AND CHAIR ALARM ON. PATIENT LESS FLATULENT TODAY AND PASSED BM 30 MIN BEFORE SHIFT CHANGE. UPPER DENTURES HAVE NOT BEEN LOCATED - CONFIRMED THEY DID NOT GO TO SURG 212 WITH HIM FOLLOWING ENDOSCOPY.
[2021-09-25 04:01] LABS: Hematocrit 22.1 % (37.0-53.0); Hemoglobin 7.1 g/dL (13.5-17.5)
[2021-09-25 04:24] LABS: Albumin, Blood 2.1 g/dL (3.4-5.0); Anion Gap 2 mmol/L (6-16); Blood Urea Nitrogen 33 mg/dL (8-24); Bun/Creatinine Ratio 29.2 (12.0-20.0); CO2, Blood 28 mmol/L (21-32); Calcium, Blood 7.7 mg/dL (8.5-10.1); Chloride, Blood 107 mmol/L (98-108); Creatinine, Blood 1.13 mg/dL (0.60-1.20); Glomerular Filtration Rate >60 (60-); Glucose, Blood 111 mg/dL (70-99); Phosphorus, Blood 2.1 mg/dL (2.5-4.9); Potassium, Blood 4.3 mmol/L (3.5-5.5); Sodium, Blood 137 mmol/L (136-145)
--- NOTE | 2021-09-25 05:32 | NUR ---
SHIFT SUMMARY: PATIENT DENIES CHEST PAIN AND SOB. ANGIO SITE WNL. NO BMS THIS SHIFT AT THIS TIME. PATIENT HAS NOT USED CALL LIGHT, BUT DOES MAKE NEEDS KNOWN WHEN STAFF IS IN ROOM. SPEECH IS OCCASIONALLY GARBLED AND PATIENT HAS A LOT OF STORIES TO TELL. VS T/O SHIFT ON 3L NC. WILL CONTINUE TO MONITOR AND REPORT TO ONCOMING RN.
--- NOTE | 2021-09-25 16:03 | NUR ---
REPORT CALLED TO MEDICAL FLOOR. SODIUM PHOSPHATE HAS NOT ARRIVED FROM PHARMACY AT THIS TIME, ONLY PROTONIX DRIP 10MG/HR INFUSING AT THIS TIME. ALL BELONGINGS WITH PT
--- NOTE | 2021-09-25 19:26 | NUR ---
SHIFT SUMMARY PATIENT TRANSFERRED FROM PCU. A&O BUT FORGETFUL. REPORTED THAT PATIENT CAN BECOME CONFUSED AT NIGHT. 2PA WITH WALKER TO BSC. CHRONIC RICHARDSON PRESENT AND DRAINING TO GRAVITY. HAS RASH WITH SCABBED OVER SORES OVER MAJORITY OF PATIENTS BODY. RECEIVING IV PROTONIX. PUREE DIET. BED IN LOW POSITION WITH BED ALARM ON. REPORT GIVEN TO ONCOMING RN.
--- NOTE | 2021-09-26 05:26 | NUR ---
SHIFT SUMMARY 81 YR M TRANSFERED FROM PCU YESTERDAY AFTER BEING ADMITTED ON 09/20/21 FOR GI BLEED AND RESPIRATORY DISTRESS. FULL CODE. PT IS ON CONTINUED PROTONIX AND HAS A PUREE DIET. HE IS ASKING FOR FOOD STATING THAT HE CAN CHEW W/ ONLY HIS BOTTOM TEETH BECAUSE APPARENTLY HIS TOP DENTURE IS MISSING. DIET ORDER IS PUREE SO WILL ADVISE NURSE COMING ON SHIFT TO DISCUSS W/ PT'S DOCTOR. PT APPEARS TO BE IN GOOD SPIRITS AND IS FRIENDLY AND COOPERATIVE, WELL A BIT NEEDY.
[2021-09-26 05:41] LABS: BASOPHILS ABSOLUTE AUTO 0.03 K/mm3 (0.00-0.23); BASOPHILS PERCENT AUTO 0 % (0-2); EOSINOPHILS ABSOLUTE AUTO 0.24 K/mm3 (0.00-0.68); EOSINOPHILS PERCENT AUTO 2 % (0-6); Hematocrit 24.4 % (37.0-53.0); Hemoglobin 7.7 g/dL (13.5-17.5); IMMATURE GRAN ABSOLUTE AUTO 0.09 K/mm3 (0.00-0.10); IMMATURE GRAN PERCENT AUTO 1 % (0-1); LYMPHOCYTES ABSOLUTE AUTO 1.15 K/mm3 (0.84-5.20); LYMPHOCYTES PERCENT AUTO 8 % (21-46); MONOCYTES ABSOLUTE AUTO 1.13 K/mm3 (0.16-1.47); MONOCYTES PERCENT AUTO 8 % (4-13); Mean Corpuscular HGB 29.2 pg (26.0-34.0); Mean Corpuscular HGB Conc 31.6 g/dL (31.5-36.5); Mean Corpuscular Volume 92 fL (80-100); Mean Platelet Volume 11.5 fL (9.1-12.4); NEUTROPHILS ABSOLUTE AUTO 12.52 K/mm3 (1.96-9.15); NEUTROPHILS PERCENT AUTO 83 % (41-73); Platelet Count 171 K/mm3 (150-400); RDW Coefficient Variation 22.4 % (11.7-14.2); RDW Standard Deviation 67.2 fL (35.1-46.3); Red Blood Cell Count 2.64 M/mm3 (4.30-5.90); White Blood Cell Count 15.16 K/mm3 (4.00-11.30)
[2021-09-26 05:54] LABS: Alanine Aminotransfer (ALT/SGP 23 U/L (12-78); Albumin, Blood 2.3 g/dL (3.4-5.0); Albumin/Globulin Ratio 0.7 (0.8-1.8); Alk Phos 65 U/L (50-136); Anion Gap 4 mmol/L (6-16); Aspartate Aminotrans (AST/SGOT 18 U/L (12-37); Blood Urea Nitrogen 29 mg/dL (8-24); Bun/Creatinine Ratio 27.4 (12.0-20.0); CO2, Blood 26 mmol/L (21-32); Calcium, Blood 7.9 mg/dL (8.5-10.1); Chloride, Blood 104 mmol/L (98-108); Creatinine, Blood 1.06 mg/dL (0.60-1.20); Globulin, Blood 3.4 g/dL (2.2-4.0); Glomerular Filtration Rate >60 (60-); Glucose, Blood 106 mg/dL (70-99); Magnesium, Blood 1.9 mg/dL (1.6-2.4); Potassium, Blood 4.3 mmol/L (3.5-5.5); Sodium, Blood 134 mmol/L (136-145); Total Protein, Blood 5.7 g/dL (6.4-8.2)
[2021-09-26] MEDS ORDERED: CARAFATE1 GM PO (14:21)
== END 2021-09-26 16:40 | disposition home health service (06) | DRG 357 ==
LOC: ER 17:46 → MEDS 21:38 → SURS 21:38 → ERHOLD 21:38 → SURS 22:22 → MEDS 09-22 00:33 → PCU 09-23 15:24 → MEDS 09-25 16:20
PROVIDERS: Family Medicine; Internal Medicine; Physician Assistant; Student in an Organized Health Care Education/Training Program; ADMIT Hospitalist
PROC: 30233N1 Transfusion of Nonautologous Red Blood Cells into Peripheral Vein, Percutaneous Approach (ICD-10-PCS; principal; 2021-09-20)
PROC: 30233K1 Transfusion of Nonautologous Frozen Plasma into Peripheral Vein, Percutaneous Approach (ICD-10-PCS; 2021-09-20)
PROC: 0W3P8ZZ Control Bleeding in Gastrointestinal Tract, Via Natural or Artificial Opening Endoscopic (ICD-10-PCS; 2021-09-21)
PROC: 04L33DZ Occlusion of Hepatic Artery with Intraluminal Device, Percutaneous Approach (ICD-10-PCS; 2021-09-26)
DX: K26.4 Chronic or unspecified duodenal ulcer with hemorrhage (principal); I13.0 Hypertensive heart and chronic kidney disease with heart failure and stage 1 through stage 4 chronic kidney disease, or unspecified chronic kidney disease; E27.40 Unspecified adrenocortical insufficiency; E87.1 Hypo-osmolality and hyponatremia; D62 Acute posthemorrhagic anemia; K22.10 Ulcer of esophagus without bleeding; I50.32 Chronic diastolic (congestive) heart failure; K29.70 Gastritis, unspecified, without bleeding; D63.1 Anemia in chronic kidney disease; N18.32 Chronic kidney disease, stage 3b; I95.9 Hypotension, unspecified; I25.10 Atherosclerotic heart disease of native coronary artery without angina pectoris; E05.00 Thyrotoxicosis with diffuse goiter without thyrotoxic crisis or storm; Z20.822 Contact with and (suspected) exposure to COVID-19; I48.91 Unspecified atrial fibrillation; Z96.652 Presence of left artificial knee joint; J44.9 Chronic obstructive pulmonary disease, unspecified; G47.33 Obstructive sleep apnea (adult) (pediatric); Z89.022 Acquired absence of left finger(s); Z79.2 Long term (current) use of antibiotics; Z98.890 Other specified postprocedural states; Z90.89 Acquired absence of other organs; Z87.440 Personal history of urinary (tract) infections; Z79.82 Long term (current) use of aspirin; Z89.112 Acquired absence of left hand; Z79.01 Long term (current) use of anticoagulants; Z79.899 Other long term (current) drug therapy
CPT/HCPCS: 0241U; 36415; 36430; 37244; 75726; 75774; 76937; 80048; 80053; 80069; 81001; 82272; 82330; 83690; 83735; 84100; 84484; 85014; 85018; 85025; 86850; 86900; 86901; 86923; 87077; 87086; 87186; 87338; 93005; 93010; 96374; 96375; 96376; 97116; 97162; 97530; 99152; 99153; 99285-25; A9270; C1760; C1769; C1887; C1894; C9113; J0171; J0610; J1644; J1720; J2250; J2405; J2550; J2704; J3010; J7030; J7050; J7060; J7120; P9016; P9059; Q9967

== ENCOUNTER 2021-10-15 09:48 | Emergency (ER) | payer MEDICARE ==
[~2021-10-15] VITALS: Ht 172.7 cm; Wt 68.0 kg
[~2021-10-15 09:48] MED LIST changes: +Atarax10 MG PO; +SPIRONOLACTONE25 MG PO
== END 2021-10-15 12:37 | disposition home or self-care (01) ==
LOC: ER 09:48
DX: R60.0 Localized edema (principal); Z46.6 Encounter for fitting and adjustment of urinary device; Z79.899 Other long term (current) drug therapy; I13.0 Hypertensive heart and chronic kidney disease with heart failure and stage 1 through stage 4 chronic kidney disease, or unspecified chronic kidney disease; I48.91 Unspecified atrial fibrillation; I50.30 Unspecified diastolic (congestive) heart failure; J44.9 Chronic obstructive pulmonary disease, unspecified; G47.33 Obstructive sleep apnea (adult) (pediatric); N18.9 Chronic kidney disease, unspecified
CPT/HCPCS: 99283-25

== ENCOUNTER 2021-10-31 08:50 | Inpatient (IN) | payer MEDICARE ==
[~2021-10-31] VITALS: Ht 180.3 cm; Wt 89.5 kg
[2021-10-31 11:14] LABS: BASOPHILS ABSOLUTE AUTO 0.05 K/mm3 (0.00-0.23); BASOPHILS PERCENT AUTO 1 % (0-2); EOSINOPHILS ABSOLUTE AUTO 0.02 K/mm3 (0.00-0.68); EOSINOPHILS PERCENT AUTO 0 % (0-6); Hematocrit 25.9 % (37.0-53.0); Hemoglobin 8.2 g/dL (13.5-17.5); IMMATURE GRAN ABSOLUTE AUTO 0.07 K/mm3 (0.00-0.10); IMMATURE GRAN PERCENT AUTO 1 % (0-1); LYMPHOCYTES ABSOLUTE AUTO 0.68 K/mm3 (0.84-5.20); LYMPHOCYTES PERCENT AUTO 6 % (21-46); MONOCYTES ABSOLUTE AUTO 1.33 K/mm3 (0.16-1.47); MONOCYTES PERCENT AUTO 12 % (4-13); Mean Corpuscular HGB 26.2 pg (26.0-34.0); Mean Corpuscular HGB Conc 31.7 g/dL (31.5-36.5); Mean Corpuscular Volume 83 fL (80-100); Mean Platelet Volume 11.5 fL (9.1-12.4); NEUTROPHILS ABSOLUTE AUTO 8.58 K/mm3 (1.96-9.15); NEUTROPHILS PERCENT AUTO 80 % (41-73); Platelet Count 246 K/mm3 (150-400); RDW Coefficient Variation 19.4 % (11.7-14.2); RDW Standard Deviation 57.5 fL (35.1-46.3); Red Blood Cell Count 3.13 M/mm3 (4.30-5.90); White Blood Cell Count 10.73 K/mm3 (4.00-11.30)
[2021-10-31 11:34] LABS: Albumin, Blood 2.4 g/dL (3.4-5.0); Albumin/Globulin Ratio 0.5 (0.8-1.8); Bilirubin, Total 1.2 mg/dL (0.1-1.0); Bun/Creatinine Ratio 27.1 (12.0-20.0); Calcium, Blood 8.2 mg/dL (8.5-10.1); Creatinine, Blood 1.88 mg/dL (0.60-1.20); Potassium, Blood 4.5 mmol/L (3.5-5.5); Total Protein, Blood 7.4 g/dL (6.4-8.2)
[2021-10-31 11:55] LABS: Source, Urine Foley catheter
[2021-10-31 12:01] LABS: Bilirubin, Urine Neg (Neg); Blood, Urine 2+ (Neg); Glucose Qualitative, Urine Neg (Neg); Ketones, Urine Neg (Neg); Leukocyte Esterase, Urine 2+ (Neg); Nitrite, Urine Neg (Neg); Protein, Urine 3+ (Neg); Specific Gravity, Urine 1.025 (1.003-1.022); Urobilinogen, Urine 1+ (Normal)
[2021-10-31 12:09] LABS: Appearance, Urine Hazy (Clear); Color, Urine Yellow (P-Yellow)
[2021-10-31 12:11] LABS: Bacteria Many /hpf; Granular Casts 0-2 /lpf (0); Red Blood Cells, Urine 0-2 /hpf (0-2); Squamous Epithelial Cells Few /hpf (Few)
--- NOTE | 2021-10-31 17:14 | NUR ---
UPDATE PT ARRIVED FROM ER TO PCU 2. PT ALERT AND ABLE TO STATE HIS NAME, AND PLACE. PT GROANING AND YELLING OUT CONSTANTLY. WHEN THIS RN ASKS PT WHAT IS IF HE IS HURTING HE STATES NO AND "I JUST DON'T KNOW". PT NOTICABLY GUARDING HIS RIGHT SHOULDER. RIGHT SHOULDER IS SWOLLEN IN COMPARISON TO LEFT SHOULDER. BP STABLE. HR IS AFIB IN THE 80'S. O2 SATS >90% ON 4L NC. PER PT'S HE USES 4L AT ALL TIMES. LS DIM THROUGHOUT. PT ARRIVED WITH CHRONIC RICHARDSON THAT WAS REMOVED AND NEW RICHARDSON PLACED. URINE SAMPLE TO BE SENT. RIGHT LOWER EXTREMITY SWOLLEN, HOT AND RED. LEFT LOWER EXTREMITY WITH NON-PITTING EDEMA IS COOL AND DUSKY. PT HAS SMALL SCABS SCATTERED THROUGHOUT. BED ALARM ON FOR SAFETY. WILL CONTINUE TO MONITOR AND REPORT TO ONCOMING RN
[2021-10-31 21:39] LABS: Source, Urine Foley catheter
[2021-10-31 21:43] LABS: Bilirubin, Urine Neg (Neg); Blood, Urine 5+ (Neg); Glucose Qualitative, Urine Neg (Neg); Ketones, Urine Neg (Neg); Leukocyte Esterase, Urine 1+ (Neg); Nitrite, Urine Neg (Neg); Protein, Urine 2+ (Neg); Urobilinogen, Urine 1+ (Normal)
[2021-10-31 22:12] LABS: Appearance, Urine Hazy (Clear); Color, Urine Yellow (P-Yellow)
[2021-10-31 22:32] LABS: Squamous Epithelial Cells Rare /hpf (Few)
[2021-10-31 22:33] LABS: Amorphous Light (0-Heavy); Bacteria Many /hpf; Granular Casts 0-2 /lpf (0); Hyaline Casts 0-2 /lpf (0-2)
--- NOTE | 2021-10-31 22:52 | NUR ---
BEDSIDE JOINT ASPIRATION DR. ANGUIANO AT BEDSIDE ASSESSING PATIENT. SUPPLIES GATHERED. BEDSIDE JOINT ASPIRATION PERFORMED BY DR. ANGUIANO. APPROXIMATELY 130 MLS PULLED FROM RIGHT SHOULDER. SPECIMENS SENT TO LAB. SEE ORTHO NOTE. PATIENT TOLERATED PROCEDURE WELL.
[2021-10-31 23:32] LABS: BODY FLUID RBC 0.019 M/mm3 (0-0); RBC Count, Synovial Fluid 19000 /mm3 (0-0)
[2021-10-31 23:33] LABS: WBC Count, Synovial Fluid 84360 /mm3 (0-180)
[2021-10-31 23:54] LABS: Body Fluid Crystals NEG (NEGATIVE)
[2021-11-01 02:21] LABS: Lymphs, Synovial Fluid 3 % (0-15); Monocytes/Macrophages, Synovia 16 % (0-65); Neutrophils, Synovial Fluid 81 % (0-24)
[2021-11-01 02:22] LABS: Appearance, Synovial Fluid Cloudy (Clear); Color, Synovial Fluid Yellow (None-P Yel)
[2021-11-01 04:44] LABS: BASOPHILS ABSOLUTE AUTO 0.04 K/mm3 (0.00-0.23); BASOPHILS PERCENT AUTO 0 % (0-2); Hematocrit 25.1 % (37.0-53.0); Hemoglobin 7.6 g/dL (13.5-17.5); LYMPHOCYTES ABSOLUTE AUTO 0.64 K/mm3 (0.84-5.20); LYMPHOCYTES PERCENT AUTO 6 % (21-46); MONOCYTES ABSOLUTE AUTO 0.91 K/mm3 (0.16-1.47); MONOCYTES PERCENT AUTO 9 % (4-13); Mean Corpuscular HGB 25.7 pg (26.0-34.0); Mean Corpuscular HGB Conc 30.3 g/dL (31.5-36.5); Mean Corpuscular Volume 85 fL (80-100); Mean Platelet Volume 11.6 fL (9.1-12.4); Platelet Count 201 K/mm3 (150-400); RDW Coefficient Variation 19.3 % (11.7-14.2); RDW Standard Deviation 57.8 fL (35.1-46.3); Red Blood Cell Count 2.96 M/mm3 (4.30-5.90); White Blood Cell Count 10.63 K/mm3 (4.00-11.30)
[2021-11-01 04:49] LABS: EOSINOPHILS PERCENT AUTO 0 % (0-6); IMMATURE GRAN ABSOLUTE AUTO 0.17 K/mm3 (0.00-0.10); IMMATURE GRAN PERCENT AUTO 2 % (0-1); NEUTROPHILS ABSOLUTE AUTO 8.87 K/mm3 (1.96-9.15); NEUTROPHILS PERCENT AUTO 83 % (41-73)
[2021-11-01 05:04] LABS: Bun/Creatinine Ratio 29.6 (12.0-20.0); Calcium, Blood 7.5 mg/dL (8.5-10.1); Creatinine, Blood 1.99 mg/dL (0.60-1.20); Potassium, Blood 4.9 mmol/L (3.5-5.5)
--- NOTE | 2021-11-01 06:01 | NUR ---
SHIFT SUMMARY PATIENT ALERT AND ORIENTED x2-3. SLEPT MAJORITY OF SHIFT, WAKES TO VERBAL AND PAINFUL STIMULI. PATIENT YELLS AND MOANS OUT DURING CARE AND WITH MINIMAL TOUCH. PATIENT DENIES PAIN. VSS. TELE READING AFIB 70s. PATIENT ON 2L NC WITH O2 SAT >90%. SWELLING IN RIGHT SHOULDER SLIGHTLY IMPROVED SINCE JOINT ASPIRATION. SEE PREVIOUS/ORTHO NOTE. PATIENT NPO SINCE ADMISSION WITH PLAN FOR GOING TO OR WITH DR. ANGUIANO. RICHARDSON IN PLACE DRAINING TO GRAVITY. BED IN LOW POSITION, CALL LIGHT IN REACH. WILL REPORT TO DAY SHIFT RN.
[2021-11-01 09:01] LABS: Influenza A, PCR NEGATIVE (NEGATIVE); Influenza B, PCR NEGATIVE (NEGATIVE); Resp Syncytial Virus, PCR NEGATIVE (NEGATIVE); SARS-Cov-2 (COVID-19) PCR, MMC NEGATIVE (NEGATIVE)
--- NOTE | 2021-11-01 09:21 | NUR ---
UPDATE PT TAKEN DOWN TO DAY SURGERY FOR PROCEDURE. UPDATED. WILL AWAIT RETURN
--- NOTE | 2021-11-01 10:45 | NUR ---
11/01/21 1045 Vale Sharp PATIENT ON SCHEDULED VANCOMYCIN, ONCE DAILY. LAST RECEIVED DOSE WAS 10/31/21 AT 1543
--- NOTE | 2021-11-01 11:32 | NUR ---
UPDATE PT RETURNED FROM PACU. PT ALERT, BUT ONLY MOANS WHEN ASKED QUESTIONS. LS COARSE THROUGHOUT AND ORAL CARE PROVIDED TO HELP PT CLEAR SECRETIONS. SMALL CAST REMOVED FROM ROOF OF MOUTH. VS STABLE. WILL CONTINUE TO MONITOR CLOSELY. RIGHT SHOULDER WITH FOAM DRESSING IN PLACE AND SLING. DRAIN NOTED WITH MINIMAL OUTPUT AT THIS TIME.
[2021-11-01 12:01] LABS: Hematocrit 27.2 % (37.0-53.0); Hemoglobin 8.2 g/dL (13.5-17.5)
--- NOTE | 2021-11-01 17:06 | NUR ---
SHIFT SUMMARY MENTATION REMAINS UNCHANGED. VS STABLE. PT PLACED ON CPAP THIS EVENING BECAUSE OF HISTORY OF SLEEP APNEA. SATS >90% WITH 3L BLEED IN. BP STABLE. HR REMAINS AFIB. WHEN ASKED ABOUT PAIN, PT SHAKES HIS HEAD NO. PT REPOSITIONED Q2H. RIGHT ARM REMAINS IN SLING AND DRAING IN PLACE WITH MINIMAL OUTPUT. RICHARDSON PATENT AND DRAINING. NO BM THIS SHIFT. WILL CONTINUE TO MONITOR AND REPORT TO ONCOMING RN
[2021-11-02 03:43] LABS: Hematocrit 27.1 % (37.0-53.0); Hemoglobin 8.4 g/dL (13.5-17.5); Mean Corpuscular HGB 26.3 pg (26.0-34.0); Mean Corpuscular Volume 85 fL (80-100); Mean Platelet Volume 11.7 fL (9.1-12.4); NRBC ABSOLUTE 0.04 K/mm3 (0.00-0.02); NRBC Auto 0.3 /100 WBC (0.0-0.2); Platelet Count 217 K/mm3 (150-400); RDW Coefficient Variation 19.9 % (11.7-14.2); RDW Standard Deviation 59.6 fL (35.1-46.3); White Blood Cell Count 15.68 K/mm3 (4.00-11.30)
[2021-11-02 04:05] LABS: BAND PERCENT MAN 18 % (0-8); BASOPHILS PERCENT MAN 0 % (0-2); EOSINOPHILS PERCENT MAN 0 % (0-6); LYMPHOCYTES ABSOLUTE MAN 0.47 K/mm3 (0.84-5.20); LYMPHOCYTES PERCENT MAN 3 % (21-46); MONOCYTES ABSOLUTE MAN 1.56 K/mm3 (0.16-1.47); MONOCYTES PERCENT MAN 10 % (4-13); NEUTROPHILS ABSOLUTE MAN 13.64 K/mm3 (1.96-9.15); SEG NEUTROPHILS PERCENT MAN 69 % (41-73); TOTAL CELLS COUNTED 100
[2021-11-02 04:12] LABS: Magnesium, Blood 2.5 mg/dL (1.6-2.4)
[2021-11-02 04:13] LABS: Albumin, Blood 2.1 g/dL (3.4-5.0); Anion Gap 9 mmol/L (6-16); Blood Urea Nitrogen 66 mg/dL (8-24); C-REACTIVE PROTEIN, EXT RANGE >19.000 mg/dL (0.000-0.300); CO2, Blood 20 mmol/L (21-32); Calcium, Blood 7.9 mg/dL (8.5-10.1); Chloride, Blood 106 mmol/L (98-108); Glomerular Filtration Rate 29 (60-); Glucose, Blood 127 mg/dL (70-99); Phosphorus, Blood 5.3 mg/dL (2.5-4.9); Potassium, Blood 4.9 mmol/L (3.5-5.5); Sodium, Blood 135 mmol/L (136-145)
--- NOTE | 2021-11-02 06:06 | NUR ---
FLATLOCK SEWING MACHINE OPERATOR SUMMARY PT IS ALERT BUT UNABLE TO FULLY ASSESS HIS ORIENTATION DUE TO HIS GARBLED SPEECH IT IS VERY HARD TO MAKE OUT WHAT HE IS SAYING. THE PT HAD O2 SATS >90% ON THE CPAP W 3L BLEED IN FOR MOST OF THE NIGHT AND 3L NC WHEN HE TOOK IT OFF. PT REQUIRING FRQUENT ORAL CARE DUE TO MOUTH BREATHING DRYING OUT HIS MOUTH QUICKLY. VSS AND AFEBRILE. RICHARDSON CATHETER IN PLACE AND ONLY DRAINED 200ML OF DARK YELLOW URINE THIS SHIFT. BLADDER SCAN SHOWING NO RETENTION DESPITE RICHARDSON. PT DENYING ANY SERIOUS PAIN WHILE AT REST BUT HE DOES NOT TOLERATE BEING MOVED AT ALL. TELE SHOWING AFIB IN THE 70'S ALL SHIFT. NS RUNNING AT 100ML/HR. WILL REPORT TO ONCOMING RN.
[2021-11-02 14:41] LABS: Vancomycin, Trough 18.3 ug/mL (5.0-10.0)
--- NOTE | 2021-11-02 16:04 | NUR ---
UPDATE ONLY 100ML OF URINE OUT IN RICHARDSON THIS SHIFT. DR. HICKMAN CALLED AND NOTIFIED. ORDERS RECEIVED.
[2021-11-02 16:44] LABS: Bun/Creatinine Ratio 31.3 (12.0-20.0); Calcium, Blood 8.1 mg/dL (8.5-10.1); Creatinine, Blood 2.17 mg/dL (0.60-1.20); Potassium, Blood 5.1 mmol/L (3.5-5.5)
--- NOTE | 2021-11-02 17:49 | NUR ---
SHIFT SUMMARY MENTATION REMAINS UNCHANGED THIS SHIFT. VS STABLE. PT HAS BEEN ON 3L NC ALL SHIFT WITH SATS >90%. PT UP TO COMMODE THIS SHIFT WITH 2 ASSIST. RICHARDSON PATENT AND DRAINING MINIMAL URINE OUTPUT. PT RECEIVED BATH THIS SHIFT AND LOTION APPLIED TO DRY SKIN. DRAIN TO RIGHT SHOULDER REMOVED BY DR. ANGUIANO THIS SHIFT. DRESSING SATURATED THIS AFTERNOON AND WOUND CLEANSED AND REDRESSED. PT DENIES ANY PAIN. PT REPOSITIONED Q2H. NS INFUSING PER ORDERS. WILL CONTINUE TO MONITOR AND REPORT TO ONCOMING RN
[2021-11-03 03:49] LABS: Hematocrit 32.4 % (37.0-53.0); Hemoglobin 9.6 g/dL (13.5-17.5); Mean Corpuscular HGB Conc 29.6 g/dL (31.5-36.5); Mean Corpuscular Volume 88 fL (80-100); Mean Platelet Volume 12.1 fL (9.1-12.4); NRBC ABSOLUTE 0.12 K/mm3 (0.00-0.02); NRBC Auto 0.5 /100 WBC (0.0-0.2); Platelet Count 186 K/mm3 (150-400); RDW Coefficient Variation 20.2 % (11.7-14.2); RDW Standard Deviation 62.5 fL (35.1-46.3); Red Blood Cell Count 3.69 M/mm3 (4.30-5.90); White Blood Cell Count 22.87 K/mm3 (4.00-11.30)
[2021-11-03 04:19] LABS: Albumin, Blood 2.3 g/dL (3.4-5.0); Anion Gap 21 mmol/L (6-16); Blood Urea Nitrogen 75 mg/dL (8-24); Bun/Creatinine Ratio 26.2 (12.0-20.0); CO2, Blood 9 mmol/L (21-32); Chloride, Blood 104 mmol/L (98-108); Creatinine, Blood 2.86 mg/dL (0.60-1.20); Glomerular Filtration Rate 21 (60-); Glucose, Blood 89 mg/dL (70-99); Phosphorus, Blood 6.3 mg/dL (2.5-4.9); Potassium, Blood 5.6 mmol/L (3.5-5.5); Sodium, Blood 134 mmol/L (136-145)
[2021-11-03 04:55] LABS: BAND PERCENT MAN 7 % (0-8); BASOPHILS ABSOLUTE MAN 0.22 K/mm3 (0.00-0.23); BASOPHILS PERCENT MAN 1 % (0-2); EOSINOPHILS PERCENT MAN 0 % (0-6); LYMPHOCYTES ABSOLUTE MAN 0.91 K/mm3 (0.84-5.20); LYMPHOCYTES PERCENT MAN 4 % (21-46); MONOCYTES ABSOLUTE MAN 2.05 K/mm3 (0.16-1.47); MONOCYTES PERCENT MAN 9 % (4-13); MYELOCYTE ABSOLUTE MAN 0.22 K/mm3 (0.00-0.00); MYELOCYTE PERCENT MAN 1 % (0-0); NEUTROPHILS ABSOLUTE MAN 19.43 K/mm3 (1.96-9.15); SEG NEUTROPHILS PERCENT MAN 78 % (41-73); TOTAL CELLS COUNTED 100
--- NOTE | 2021-11-03 05:52 | NUR ---
SHIFT SUMMARY PT ALERT BUT ORIENATION IS HARD TO ASSESS DUE TO PT CONDITION. PT IS ABLE TO IDENTIFY NAME AND DATE OF . PT RESPONSES ARE SLOWED AND SOMETIMES APPROPRIATE TO QUESIONS. AT TIMES PT SPEECH IS GARBLED. THROUGHOUT SHIFT, PT BECAME FATIGUE AND STATED "HE FEELS REALLY TIRED." PT IS COOL TO THE TOUCH AND NAIL BEDS ARE DUSKY. PT O2 > 96% ON 3 L NC. PT COMPLAINS OF GENERAL PAIN, FACIAL GRIMACING NOTED. MEDICATED PER EMAR. PT TURNED Q2 TOLERATED. RICHARDSON CATHETER DRAINING TO GRAVITY. URINE OUPUT <100 ML THROUGHOUT SHIFT. CRITICAL LAB VALUE REPORT OF CARBON DIOXIDE OF 9. PROVIDED NOTIFIED. SODIUM BICARB ORDERED AND STARTED PER EMAR. WILL CONTINUE TO MONITOR AND REPORT TO ONCOMING RN. PT IS SLEEPING. BED IS IN LOWEST POSITION AND CALL LIGHT IS WITHIN REACH.
--- NOTE | 2021-11-03 07:47 | NUR ---
ASSUMED CARE OF PATIENT AT 0700. PATIENT IS CONFUSED RESTLESS, MOANING AND MUMBLING. FOLLOW DIRECTION WHEN ASKED TO OPEN HIS MOUTH BUT NOT ABLE TO TELL NAME AND . VSS, O2 ON 2L VIA NC WITH SPO2 94-96%, RESP. RANGES 24-26 BPM. LOTS OF PAIN IN ABDOMEN UPON PALPATATION. PATIENT REPOSITIONED TO LEFT SIDE. CARDIOVASCULAR INVASIVE SPECIALIST IN ROOM FOR CONSULT.
--- NOTE | 2021-11-03 08:06 | NUR ---
Dr. Olmedo here. Said he will call Dr. Bermudez. Acute abdomen is suspected. New orders received at this time.
--- NOTE | 2021-11-03 09:11 | NUR ---
Dr. Bermudez was notified of the patient's critical lab value of lactic acid of 9.3. No new orders at this time.
[2021-11-03 09:29] LABS: PO2 Arterial 125 mmHg (80-100); pH Blood Arterial 7.23 (7.35-7.45)
--- NOTE | 2021-11-03 09:29 | NUR ---
Dr. Bermudez was notified immediately after results of lactic acid completed. ABG was drawn. Pt's SPO2 dropped to 80% on 3 l/min; this morning he was 100% on 3 l/min nc delivery. Now on his CPAP with 3 l bleed in and spo2 is improved to 93%. Tachypneic, sleepy. Responds to speech and tactile stimuli.
[2021-11-03 09:30] LABS: PCO2 Arterial 16 mmHg (35-45)
--- NOTE | 2021-11-03 09:40 | NUR ---
Call to Dr. Bermudez to notify her of CT results and ABG results at this time.
--- NOTE | 2021-11-03 10:12 | NUR ---
Requiring CPAP to maintain spo2 >90 while sleeping. RR is 28/minute. New orders from Dr. Bermudez to give sodium bicarb 2 amps, and transfer to ICU for Critical care consult for dialysis today. Dr. Bermudez says that she called and spoke to the pt's by phone.
--- NOTE | 2021-11-03 12:10 | NUR ---
TRANSFER TO ICU REPORT RECIEVED. PT TRANSFERED IN TO ICU 4 AT 1035. PT IS LETHARGIC, BUT AROUSEABLE TO VERBAL STIMULI. PT MUMBLES AND SPEECH IS DIFFICULT TO UNDERSTAND. PT YELLS OUT WITH ANY TOUCH OR PALPATION TO ABD. PT ON 3L O2 NC. BICARB GTT INFUSING AT 75 ML/HR. DR DAVIDSON AT BEDSIDE, TRIALYSIS CATH PLACED TO RIGHT GROIN AT THIS TIME. PT THEN PLACED ON BIPAP 14/8, FIO2 40% DUE TO RAPID DESATURATION WHEN LAYING FLAT. VITAL SIGNS STABLE AT THIS TIME. WILL CONTINUE TO MONITOR.
[2021-11-03 12:31] LABS: Bun/Creatinine Ratio 24.5 (12.0-20.0); Calcium, Blood 8.1 mg/dL (8.5-10.1); Creatinine, Blood 3.26 mg/dL (0.60-1.20); Potassium, Blood 5.6 mmol/L (3.5-5.5)
--- NOTE | 2021-11-03 17:53 | NUR ---
SHIFT SUMMARY: PT SLEPT A MAJORITY OF SHIFT. PT RESPONDS TO VERBAL AND TACTILE STIMULI. BP STABLE. PT IS AFIB WITH HR RANGING IN THE 70'S-80'S. ON 3L NC SATING ABOVE 95%. CENTRAL LINE WAS PLACED THIS AFTERNOON IN THE R. FEMORAL. DRESSING C/D/I. CURRENTLY INFUSING SODIUM BICARB PER ORDERS. CHRONIC RICHARDSON IS IN PLACE WITH MINIMAL URNIARY OUTPUT. PT REMAINS HYPOTHERMIC. PT WITH WARMING BLANKET IN PLACE. TEMPERATURE SLOWLY IMPROVING THIS SHIFT. WILL CONTINUE TO MONITOR AND REPORT TO ONCOMING RN.
--- NOTE | 2021-11-03 19:20 | NUR ---
SPOUSE JL AND GRANDDAUGHTER MARLEN ARRIVE TO BEDSIDE. JL REQUESTS THAT PT BE MADE DNR STATUS. CALL PLACED TO DR RAMIREZ, HOSPITALIST [employer] AND ORDER OBTAINED. PER SPOUSE AND GRANDDAUGHTER, "WE JUST DON'T WANT HIM TO SUFFER" AND "WE WANT HIM TO BE COMFORTABLE" ON CLARIFICATION QUESTIONS, THEY WISH TO CONTINUE WITH CURRENT INTERVENTIONS AT THIS TIME BUT NO CPR.
--- NOTE | 2021-11-03 19:54 | NUR ---
ASSUMED CARE OF PT AT 1900 BEDSIDE REPORT RECEIVED. PT IS NOTED RESTING QUIETLY, BILAT SOFT WRIST RESTRAINTS IN PLACE SECONDARY TO PULLING AT LINES AFTER DIALYSIS ACCESS WAS OBTAINED. PT DOES NOT RESPOND TO VERBAL STIMULI BUT IS NOTED TO PROTECT WITH NOXIOUS STIMULI. SATS ARE MAINTAINING ON HOME FLOW RATE OF 3 L/MIN, LUNGS DIM THROUGHOUT, RATE HIGH TEENS LOW 20S AT THIS TIME. AFIB ON MONITOR, RATE 60-70S AT THIS TIME, MURMUR NOTED, NO EDEMA, BILAT FEET ARE DUSKY IN APPEARANCE, CAP REFILL 4 SECONDS. HYPOACTIVE BOWEL TONES NOTED, NO GRIMACING WITH LIGHT PALPATION, ABD SOFT. DIALYSIS ACCESS NOTED TO RIGHT GROIN, DRESSING CDI, DRESSING TO RIGHT SHOULDER CDI. RICHARDSON CATH IN PLACE DRAINING DARK YELLOW URINE, SOME SEDIMENT NOTED IN DRAINAGE TUBING. SCATTERED SCABS ARE NOTED.
[2021-11-03 20:32] LABS: Calcium, Blood 7.4 mg/dL (8.5-10.1); Creatinine, Blood 2.48 mg/dL (0.60-1.20); Potassium, Blood 4.1 mmol/L (3.5-5.5)
--- NOTE | 2021-11-03 20:41 | NUR ---
[address] DAVIDSON, SEE NEW ORDERS
[2021-11-04 04:11] LABS: BASOPHILS ABSOLUTE AUTO 0.04 K/mm3 (0.00-0.23); BASOPHILS PERCENT AUTO 0 % (0-2); EOSINOPHILS ABSOLUTE AUTO 0.02 K/mm3 (0.00-0.68); EOSINOPHILS PERCENT AUTO 0 % (0-6); Hematocrit 24.9 % (37.0-53.0); IMMATURE GRAN ABSOLUTE AUTO 1.25 K/mm3 (0.00-0.10); IMMATURE GRAN PERCENT AUTO 5 % (0-1); LYMPHOCYTES ABSOLUTE AUTO 0.75 K/mm3 (0.84-5.20); LYMPHOCYTES PERCENT AUTO 3 % (21-46); MONOCYTES ABSOLUTE AUTO 1.59 K/mm3 (0.16-1.47); MONOCYTES PERCENT AUTO 6 % (4-13); Mean Corpuscular HGB 26.1 pg (26.0-34.0); Mean Corpuscular HGB Conc 32.1 g/dL (31.5-36.5); Mean Platelet Volume 11.6 fL (9.1-12.4); NEUTROPHILS ABSOLUTE AUTO 24.14 K/mm3 (1.96-9.15); NEUTROPHILS PERCENT AUTO 87 % (41-73); NRBC Auto 0.4 /100 WBC (0.0-0.2); Platelet Count 205 K/mm3 (150-400); RDW Coefficient Variation 20.2 % (11.7-14.2); RDW Standard Deviation 57.5 fL (35.1-46.3); Red Blood Cell Count 3.06 M/mm3 (4.30-5.90); White Blood Cell Count 27.79 K/mm3 (4.00-11.30)
[2021-11-04 04:21] LABS: Mean Corpuscular Volume 81 fL (80-100)
[2021-11-04 04:32] LABS: Albumin, Blood 2.1 g/dL (3.4-5.0); Anion Gap 13 mmol/L (6-16); Blood Urea Nitrogen 60 mg/dL (8-24); Bun/Creatinine Ratio 22.6 (12.0-20.0); CO2, Blood 24 mmol/L (21-32); Calcium, Blood 7.5 mg/dL (8.5-10.1); Chloride, Blood 99 mmol/L (98-108); Creatinine, Blood 2.66 mg/dL (0.60-1.20); Glomerular Filtration Rate 23 (60-); Glucose, Blood 75 mg/dL (70-99); Phosphorus, Blood 4.3 mg/dL (2.5-4.9); Potassium, Blood 4.2 mmol/L (3.5-5.5); Sodium, Blood 136 mmol/L (136-145)
--- NOTE | 2021-11-04 06:23 | NUR ---
PT RESTS QUIETLY THROUGHOUT SHIFT, TOLERATES BIPAP WELL, DOES HAVE INFREQUENT WORDS THAT CAN BE UNDERSTOOD HOWEVER IS MOSTLY SHORT DURATIONS OF MUMBLING. HE CONTINUES TO PROTECT FROM NOXIOUS STIMULI, THROUGHOUT NOC HE BITES DOWN ON ORAL CARE SWAB AND SHAKES HIS HEAD, AT 0400 HE VERY CLEARLY STATED "STOP" AND "MY MOUTH" SATS ARE MAINTAINED THROUGHOUT NOC WITH BIPAP 14/8 FIO2 30% AND BUR OF 14, SATS ARE ALSO MAINTAINED WITH OXYGEN VIA NASAL CANNULA AT 3 L/MIN DURING BREAKS FROM BIPAP, LUNGS ARE NOTED CLEAR BILAT UPPER LOBES WHEN BIPAP IS IN USE OTHERWISE DIMINISHED THROUGHOUT. AFIB CONTINUES, AT 0537 THIS AM PT WAS NOTED TO HAVE RUN OF V-TACH, ON ARRIVAL TO ROOM PT WAS RESPONSIVE TO VERBAL STIMULI WITH STRONG RADIAL PULSES HOWEVER V-TACH HAD ALSO RESOLVED. ATTEMPTS TO REMOVE RESTRAINTS RESULT IN PT IMMEDIATELY REMOVING NASAL CANNULA, PULLING AT BIPAP MASK, AND REMOVAL OF BIOX SENSOR. SPOUSE AND GRANDDAUGHTER IN AT BEGINNING OF SHIFT TO REQUEST PT BE DNR. DR RAMIREZ NOTIFIED AND ORDERS OBTAINED.
--- NOTE | 2021-11-04 10:30 | NUR ---
DR LANG IN TALKING WITH PATIENTS FAMILY, PALLIATIVE CARE NURSE CONTACTED FOR EDUCATING FAMILY ON THE PALLIATIVE CARE AND HOSPICE CHOICES. FAMILY VERY DEMANDING FOR RE-EDUCATION OF ALL INTERVENTION AND PATIENTS CONDITION PROCESS.
--- NOTE | 2021-11-04 11:41 | NUR ---
JL, GRANDDAUGHTER SIARRHEA, DAUGHTER KENRICK TALKING WITH PALIATIVE CARE NURSE, MEDICATE DPATIENT FOR FACES 04/12, ANSWERS YES WHEN ASKED IF HE IS IN PAIN, RESTRAINTS ON, WCTM
--- NOTE | 2021-11-04 14:24 | NUR ---
patient on bipap, complained of pain, medicated, patient becomes apnea with nc on, bipap back on for respirations and sats stabilized, sats 100%, resp 18, family had discussions with dr sneed, correctional case records supervisor ebony daly, and mark correctional case records supervisor. family wants to wait 2 days or until tuesday to see if patient improves and will then make the decision of comfort care or not
[2021-11-04 14:46] LABS: Vancomycin, Trough 34.6 ug/mL (5.0-10.0)
--- NOTE | 2021-11-04 15:25 | NUR ---
Met with patient's family today-pt's , daughter and granddaughter. They have already spoken to Dr. Yoon about pt's prognosis, and he is not a surgical candidate. They are all in agreement that taking pt home on hospice is the best plan of action at this time. Pt is unable to make needs or wants known. The pt's Ayala and granddaughter Konrad are close and both get along well. They are in agreement to take pt to his own home for hospice versus pt going to stay at daughter Chela's home as Chela had suggested. Pt's and granddaughter both state concern that neither of them have the "best" relations with Chela, and would prefer to take pt to his own home instead. Palliatve care will remain available.
--- NOTE | 2021-11-04 20:00 | NUR ---
ASSUMED CARE OF PT AT 1915. REPORT RECEIVED AT BEDSIDE. PT PRESENTS IN BED. ALERT AND YELLING OUT FOR WATER. TEACHING DONE ON NPO ORDER. PT DOES NOT FOLLOW EDUCATION. PT REPOSITIONED IN BED. DOES NOT PARTICIPATE. NOTED: PT HAS SMALL SORES/SCABS SCATTERED THROUGHOUT BODY. TRIALYSIS CATHER LEFT GROIN. WILL REVIEW CHART AND PLAN OF CARE FOR THIS PT.
--- NOTE | 2021-11-05 01:29 | NUR ---
HAVE MEDICATED PT WITH 25 MCG FENTANYL FOR VOICED "PAIN" PT HAS REQUESTED FREQUENTLY "WATER" AND HAS REQUESTED A "BEER" PT AGAIN INSTRUCTED THAT HE WAS NOT TO HAVE ANYTHING BY MOUTH. WHEN DOING ORAL CARE, PT WOULD TRY TO AVOID SWAB - VIGOROUSLY. WILL CONTINUE TO MONITOR PT.
[2021-11-05 04:48] LABS: BASOPHILS ABSOLUTE AUTO 0.07 K/mm3 (0.00-0.23); BASOPHILS PERCENT AUTO 0 % (0-2); Hematocrit 26.7 % (37.0-53.0); Hemoglobin 8.5 g/dL (13.5-17.5); LYMPHOCYTES ABSOLUTE AUTO 0.46 K/mm3 (0.84-5.20); LYMPHOCYTES PERCENT AUTO 1 % (21-46); MONOCYTES ABSOLUTE AUTO 1.82 K/mm3 (0.16-1.47); MONOCYTES PERCENT AUTO 5 % (4-13); Mean Corpuscular HGB 26.1 pg (26.0-34.0); Mean Corpuscular HGB Conc 31.8 g/dL (31.5-36.5); Mean Corpuscular Volume 82 fL (80-100); Mean Platelet Volume 11.8 fL (9.1-12.4); NRBC Auto 0.8 /100 WBC (0.0-0.2); Platelet Count 206 K/mm3 (150-400); RDW Coefficient Variation 20.1 % (11.7-14.2); RDW Standard Deviation 58.3 fL (35.1-46.3); Red Blood Cell Count 3.26 M/mm3 (4.30-5.90); White Blood Cell Count 35.33 K/mm3 (4.00-11.30)
[2021-11-05 04:56] LABS: EOSINOPHILS PERCENT AUTO 0 % (0-6); IMMATURE GRAN ABSOLUTE AUTO 2.67 K/mm3 (0.00-0.10); IMMATURE GRAN PERCENT AUTO 8 % (0-1); NEUTROPHILS ABSOLUTE AUTO 30.31 K/mm3 (1.96-9.15); NEUTROPHILS PERCENT AUTO 86 % (41-73)
--- NOTE | 2021-11-05 05:21 | NUR ---
PT HAS BEEN MORE VOCAL THIS NIGHT. YELLING OUT FOR WATER, BEER, AND PAIN. MEDICATED PT WITH 25 MCG FENTANYL THREE DIFFERENT TIMES WITH GOOD RESULTS. PT HAS MOVE ABOUT IN BED OFTEN. HAVE CONTINUED TO USE PILLOWS TO REPOSITION PT FOR LONG HE WOULD REMAIN. POOR URINARY OUTPUT. SEE I/O FLOWSHEET FOR DETAILS. VSS. WILL CONTINUE TO MONITOR PT, AND WILL REPORT OFF TO ONCOMING RN.
[2021-11-05 05:41] LABS: Anion Gap 13 mmol/L (6-16); Blood Urea Nitrogen 66 mg/dL (8-24); Bun/Creatinine Ratio 24.7 (12.0-20.0); CO2, Blood 24 mmol/L (21-32); Calcium, Blood 7.8 mg/dL (8.5-10.1); Chloride, Blood 101 mmol/L (98-108); Creatinine, Blood 2.67 mg/dL (0.60-1.20); Glomerular Filtration Rate 23 (60-); Glucose, Blood 80 mg/dL (70-99); Phosphorus, Blood 4.2 mg/dL (2.5-4.9); Potassium, Blood 4.1 mmol/L (3.5-5.5); Sodium, Blood 138 mmol/L (136-145); Vancomycin, Random 32.6 ug/mL
[2021-11-05 06:25] LABS: BASOPHILS PERCENT MAN 0 % (0-2); EOSINOPHILS PERCENT MAN 0 % (0-6); LYMPHOCYTES PERCENT MAN 2 % (21-46); MONOCYTES PERCENT MAN 2 % (4-13); NEUTROPHILS ABSOLUTE MAN 33.91 K/mm3 (1.96-9.15); SEG NEUTROPHILS PERCENT MAN 96 % (41-73); TOTAL CELLS COUNTED 100
[2021-11-05 08:11] LABS: HBSAG SCREEN Negative (Negative); HCV AB 0.3 (0.0-0.9); HEP A AB, IGM Negative (Negative); HEP B CORE AB, IGM Negative (Negative)
--- NOTE | 2021-11-05 10:09 | NUR ---
DR LANG ROUNDED ON PATIENT AT 09, PATIENT CAN CELARLY SAY 2-4 WORDS AT A TIME, GRIMACING, PULLING AT RESTRAINTS, PULLING ON RICHARDSON CATHETER. REPORTED TO DAUGHTER YURI THIS AM. DR HERRMANN ROUNDED AT 08 AND SAID NO DIALYSIS FOR TODAY, PATIENT UNCONSOLABLE AND CONFUSED, TM
--- NOTE | 2021-11-05 10:33 | NUR ---
DR MORENO ROUNDED THIS AM, REPORT INCREASED WBC, MIMI IS TAKING STEROIDS AND NEEDING MORE FENTANLY IV, DR MORENO TO MAKE CHANGES AND ENTER ORDERS HERSELF, PATIENT REPOSITIONED, SPOONFUL OF WATER GIVEN, PATIENT IMMEDIATELY COUGHS AFTER, ORAL, WCTM
--- NOTE | 2021-11-05 11:15 | NUR ---
JL AT BEDSIDE, PATIENT SAYING, I WANT TO SLEEP
[2021-11-05 11:46] LABS: Albumin/Globulin Ratio 0.5 (0.8-1.8); Bilirubin, Direct 0.9 mg/dL (0.0-0.3); Bilirubin, Indirect 0.4 mg/dL (0.1-0.7); Bilirubin, Total 1.3 mg/dL (0.1-1.0); Globulin, Blood 4.2 g/dL (2.2-4.0); Total Protein, Blood 6.2 g/dL (6.4-8.2)
--- NOTE | 2021-11-05 17:55 | NUR ---
PATIENT MAKES NEEDS KNWON WITH MINIMAL WORDS, YELLS OUT, UNABLE TO ORIENT, NOT FOLLOWING DIRECTIONS AT TIMES, ORIENTED TO SELF AND FAMILY, CONSTANT MOVEMENTS TO TRY TO GET OUT OFF BED, MAX ASSIST 2 PEOPLE FOR REPOSTIONING AND BOOSTING. PATIENT REFUSES/RELUCTANT TO WORK WITH PT/OT. ST EVALUATED TODAY THIN LIQUIDS WITH A SPOON, ONE SIP AT A TIME, PUREE FOODS, MEDS CRUSHED IN APPLE SAUCE IF PATIENT AWAKE AND STAYS AWAKE. NV 2L O2, SATS 90-95%, BIPAP DISCONITNUED, FAMILY MEETING TOMORROW WITH CASE MANAGEMENT FOR STATUS CHANGE TO HOSPICE, FAMILY WANTING TO TAKE PATIENT HOME WITH HOSPICE. CHRONIC RICHARDSON DARK AJITH DRAINIG TO GRAVITY. RIGHT SHOULD AQUA JOHNNA DRESSING IN PLACE, ONE CHANGED DUE TO PATIENT RIPPING IT OFF, PATIENTS SKIN HAS MULTIPLE SPOT FAMILAIR TO CELIAC DISEAS/DERMATITIS HERPETIFORMIS, PATIENT WILL NOT STOP ITCHING AT HIMSELF OR PULLING AT LINES. LACTIC ACID 4 REPORTED TO CHARGE NURSE, EXPECTED VALUE. DIALYSIS HELD FOR TODAY DR DIAMOND REVEIWED THE LABS AND THERE IS NO NEED FOR DIALYSIS, CHANGED TO PCU STATUS, WBC 35.33 ON STEROIDS, STARTED A FENTANYL PATCH FOR PATIENT CONSITENTLY GRIMACES AND YELLING OUT, RESTRAINTS IN PLACE, WILL RELAY TO PM RN, ERIK
--- NOTE | 2021-11-05 21:40 | NUR ---
ASSUMED CARE RECEIVED REPORT FROM SAMIRA CROOKS AT 1900. PT IS ALERT AND ORIENTED TO SELF AND STATES HE IS IN THE HOSPITAL, OTHERWISE HE CONTINUES TO YELL OUT HE WANTS WATER OR HE NEEDS TO GO TO THE BATHROOM. CURRENTLY ON 2L O2 NC, SPO2 HAS DIFFICULTY READING D/T POOR PERFUSION, BUT WHEN ABLE TO READ SPO2 IS >92%. HR IS AFIB, RATE IN 60-70'S ON MONITOR. BP NORMOTENSIVE. PULSES IN BUE ARE STRONG, BLE ARE FAINT AND FEET ARE COLD TO TOUCH AND MOTTLED/DUSKY IN APPEARANCE. RIGHT SHOULDER COVERED WITH AQUACEL DRESSING. HE DENIES PAIN WHEN ASKED. HE HAS SCATTERED SMALL SCABS THROUGHOUT HIS ENTIRE BODY, ALMOST RASH-LIKE IN APPEARANCE. PT HAS DIALYSIS CATH TO RIGHT GROIN, TRIPLE LUMEN, DRESSING C/D/I. PERIPHERAL IV IN PLACE TO RIGHT AC, INFUSING WITH LR AT 50ML/HR. RICHARDSON IN PLACE, DRAINING CLOUDY YELLOW URINE WITH SEDIMENT, HE IS DIALYSIS PT, NO DIALYSIS DONE TODAY. RECTAL TEMP PROBE PRESENT, BUT WAS REMOVED WHEN PT WAS PLACED ON A BED VO. NO BOWEL MOVEMENT, YET HE CONTINUES TO STATE HE HAS TO GO TO THE BATHROOM. ORDERS REVIEWED.
--- NOTE | 2021-11-06 00:19 | NUR ---
PT CONTINUES TO CALL OUT HE WANTS WATER, WANTS A BEER AND WANTS TO LEAVE. PRN FENTANYL GIVEN FOR PAIN. HR IS AFIB, RATE 60-70'S, BP NORMOTENSIVE. 2L NC REMAINS ON, SPO2 >92% WHEN ABLE TO OBTAIN GOOD READING.
[2021-11-06 03:53] LABS: Hematocrit 24.9 % (37.0-53.0); Hemoglobin 7.9 g/dL (13.5-17.5); Mean Corpuscular HGB 26.3 pg (26.0-34.0); Mean Corpuscular HGB Conc 31.7 g/dL (31.5-36.5); Mean Corpuscular Volume 83 fL (80-100); Mean Platelet Volume 12.1 fL (9.1-12.4); NRBC ABSOLUTE 0.39 K/mm3 (0.00-0.02); NRBC Auto 1.3 /100 WBC (0.0-0.2); Platelet Count 190 K/mm3 (150-400); RDW Coefficient Variation 20.4 % (11.7-14.2); RDW Standard Deviation 60.7 fL (35.1-46.3); White Blood Cell Count 29.36 K/mm3 (4.00-11.30)
[2021-11-06 04:11] LABS: Albumin, Blood 1.9 g/dL (3.4-5.0); Anion Gap 9 mmol/L (6-16); Blood Urea Nitrogen 71 mg/dL (8-24); Bun/Creatinine Ratio 26.9 (12.0-20.0); CO2, Blood 28 mmol/L (21-32); Calcium, Blood 7.5 mg/dL (8.5-10.1); Chloride, Blood 103 mmol/L (98-108); Creatinine, Blood 2.64 mg/dL (0.60-1.20); Glomerular Filtration Rate 23 (60-); Glucose, Blood 120 mg/dL (70-99); Phosphorus, Blood 4.4 mg/dL (2.5-4.9); Potassium, Blood 4.1 mmol/L (3.5-5.5); Sodium, Blood 140 mmol/L (136-145); Vancomycin, Random 26.4 ug/mL
[2021-11-06 04:24] LABS: BAND PERCENT MAN 13 % (0-8); BASOPHILS PERCENT MAN 0 % (0-2); EOSINOPHILS PERCENT MAN 0 % (0-6); LYMPHOCYTES ABSOLUTE MAN 0.58 K/mm3 (0.84-5.20); LYMPHOCYTES PERCENT MAN 2 % (21-46); METAMYELOCYTE ABSOLUTE MAN 0.29 K/mm3 (0.00-0.00); METAMYELOCYTE PERCENT MAN 1 % (0-0); MONOCYTES ABSOLUTE MAN 0.88 K/mm3 (0.16-1.47); MONOCYTES PERCENT MAN 3 % (4-13); NEUTROPHILS ABSOLUTE MAN 27.59 K/mm3 (1.96-9.15); SEG NEUTROPHILS PERCENT MAN 81 % (41-73); TOTAL CELLS COUNTED 100
--- NOTE | 2021-11-06 06:10 | NUR ---
PT REMAINED ON 2L NC, SPO2 >92%. ALERT TO SELF AND PLACE ONLY. FENTANYL GIVEN X1 PER EMAR AND PT WAS ABLE TO REST PEACEFULLY WITHOUT CALLING OUT FOR WATER. HR REMAINED IN AFIB ON MONITOR, RATE 60-70'S. BP NORMOTENSIVE. REPORT GIVEN TO SAMIRA REILLY AT 0334, AND ARRIVED TO PCU ROOM 2 AT 0410.
--- NOTE | 2021-11-06 07:12 | NUR ---
NOC SHIFT SUMMARY ASSUMED CARE OF PT FROM ICU TRANSFER @ 8736. PT ORIENTED TO SELF ONLY, IN 2 PT RESTRAINTS D/T PULLING AT R GROIN HD CATH AND RICHARDSON CATHETER. MUMBLING INCOHERENTLY AND OCCASIONALLY FOLLOWS COMMANDS. PRN PAIN MEDS GIVEN FOR CPOT SCALE OF 7 WITH SOME RELIEF. LUNGS DIM WITH SHALLOW BREATHING. ABD SOFT AND NONTENDER. AFIB ON TELEMETRY. VSS PER PT TREND. WILL PASS ON TO DAY TREND.
[2021-11-06 08:47] LABS: Vancomycin, Random 26.6 ug/mL
--- NOTE | 2021-11-06 11:12 | NUR ---
AM NOTE: PATIENT OPENS EYES TO NAME. NOT ORIENTED TO SELF ONLY. PUPILS SLUGGISH. HARD TIME STAYING AWAKE. MOANING AT TIMES. SPEECH GARBELED. OVERALL VERY WEAK. ON 2-3L NASAL CANNULA SATING LOW-MID 90'S. LUNGS SOUNDING DIMINISHED. SPEECH THERAPY IN THIS AM. SOUNDING MORE GURGLY WITH EVAL, NPO AT THIS TIME. Q4 ORAL CARE. TELE SHOWING AFIB WITH HR 60-70'S. DOES NOT APPEAR TO BE IN ANY CARDIAC DISCOMFORT. BP STABLE. BLE EDEMA. RICHARDSON CATH IN PLACE DRAINING AJITH URINE TO GRAVITY. LR INFUSING AT 50ML/HR. RIGHT GROIN DIALYSIS CATH IN PLACE. FENTANYL PATCH TO LEFT SHOULDER. RIGHT SHOULDER WOUND CLEANSED AND DRESSING CHANGED THIS AM. FAMILY AT BEDISDE DISCUSSING THE POSSIBILITY PF COMFORT CARE WITH PALLIATIVE CARE. NO DECISIONS MADE THIS AM. WILL RE-EVAL WHEN PATIENT PRESENT. RESTRAINTS IN PLACE THIS AM, REMOVED AT 1100. PATIENT IS CALM AND LETHARGIC. NOT PULLING AT ANY LINES OR TUBES. BED ALARM IN PLACE. CALL LIGHT IN REACH. WILL CONTINUE TO MONITOR.
--- NOTE | 2021-11-06 11:58 | NUR ---
REPORTED OFF TO SAMIRA MURRAY. NO ACUTE CHANGES. SEE PREVIOUS NOTE. PLAN TO CALL PALLIATIVE CARE WHEN ARRIVES. VITAL SIGNS REMAINS STABLE. NPO. Q2 TURNING.
--- NOTE | 2021-11-06 12:38 | NUR ---
CARE ASSUMPTION THIS RN ASSUMED CARE AT 1130 FROM [facility] HOG[facility]. PATIENT IS ABLE TO AWAKE AND OPEN EYES BEIRFLY, BUT CLOSES THEM QUICKLY. EYES ARE SLUGGISH TO RESPONSE. MOANS AND GRAONS IN ROOM AND WHEN REPOSITIONING. VSS. SPO2 >90% ON 2L NC. TELE AFIBS 60-70S. PATIENT DOES NOT APPEAR TO HAVE CHEST PAIN OR SHORTNESS OF BREATH. BILTERALLY UPPER AND LOWER EDEMA +2. STRONG RADIAL PULSES. FAINT PEDIS PULSES. LEFT FOOT HAS PURPLE DISCOLORATION AND IS COOL TO TOUCH. POOR PERFUSION. ABD IS SOFT HYPOACTIVE NONTENDER. THIS RN AGREES WITH [facility]EC[facility] HOGAN SHIFT ASSESSMENT. FAMILY AT BEDSIDE AND AYAD WITH PALLIATIVE CARE HAD A CONVERSATION ABOUT COMFORT CARE. FAMILY DECIDED TO MOVE FORWARD WITH COMFORT CARE. WILL AWAIT TO SEE ORDERS. WILL CONTINUE TO MONITOR AND PROVIDE CARE. WILL CONTINUE TO MAKE MYSELF AVAILABLE FOR ANY QUESTIONS THE FAMILY MAY HAVE AND PROVIDE THERAPEUTIC COMMUNICATION AND ACTIVE LISTENING.
--- NOTE | 2021-11-06 13:18 | NUR ---
Pt's and granddaughter are at bedside. They have elected Comfort Care for this patient, as he is continuing to decline as expected and as explained to family over the past few days. He is currently wincing and moans, cries out with any repositioning. He has been asking for water each time he awakens. Both pt's granddaughter and spend most of their visits attempting to awaken and talk to patient, asking him to "wake up more, sit up, talk to us". I gently explained he appears to be beginning to transition as he is sleeping more, uninterested in eating, and winces with minimal movements. Dr. Felton gave order for comfort care. Bedside RN also informed. Palliative care will continue with supportive visists.
--- NOTE | 2021-11-06 17:11 | NUR ---
SHIFT SUMMARY PATIENT IS COMFORT CARE MEDICAL STATUS. THERE HAS BEEN NO ACUTE CHANGES THIS SHIFT BESIDES CHANGING TO COMFORT CARE. VSS. PATIENT IS CURRENTLY RESTING COMFORTABLY IN ROOM. PATIENT RICHARDSON IS DRAINING WITH GRAVITY, YELLOW COLORATION. PATIENT WILL TRANSFER TO MEDICAL FLOOR. THIS RN WILL GIVE REPORT TO MEDICAL FLOOR BEFORE SHIFT CHANGE. BED IN LOWEST POSITION AND CALL LIGHT WITHIN REACH. WILL CONTINUE TO MONITOR AND PROVIDE CARE.
--- NOTE | 2021-11-06 17:42 | NUR ---
REPORT TO MEDICAL FLOOR RN THIS RN GAVE REPORT TO MEDICAL FLOOR RN. WAITING FOR ROOM TO BE CLEAN. RN SAID SHE WOULD NOTIFY THIS RN WHEN ROOM IS CLEAN.
--- NOTE | 2021-11-06 18:28 | NUR ---
SHIFT SUMMARY/ TRANSFER NOTE PT ARRIVED IN ROOM AT 1815. HE HAS SOME SWELLING AND BLEEDING THAT SEEPED ON TO PILLOW. SHAKES HEAD NO TO PAIN. SIPS ICE WATER. REFUSED JELLO. PT DOES NOT SEEM AGITATED AND LEANED BACK TO REST. WILLCONTINUE TO MONITOR.
--- NOTE | 2021-11-07 07:32 | NUR ---
0674 - UPON ROUNDING NOTED PT WITHOUT RESPIRATIONS. NO HEART RATE HEARD VIA STETHOSCOPE. THIS RN AND RENAE COOK, SAMIRA CONFIRMED ABSENCE OF BREATH SOUNDS AND HEART SOUNDS. TOD [phone] - PAGED ON-CALL HOSPITALIST DR. ELIZONDO. NOTIFIED OF @ 8838. BARREL STRAIGHTENER NOTIFIED WELL. 0635 - SPOKE WITH YURI, PTS DAUGHTER LISTED IN CHART. OFFERED TIME WITH [facility]IM[facility] AND USE OF DETECTIVE INVESTIGATOR SERVICES. FAMILY DECLINED. PER DAUGHTER FAMILY WOULD LIKE TO DISCUSS HOME PLACEMENT. UPDATED SPINNING ROOM WORKER AND FAMILY TO CALL BACK WITH DECISION. POST-MORTEM CARE COMPLETE, ALL LINES REMOVED EXCEPT HD CATH IN R GROIN.
== END 2021-11-07 06:27 | DRG 853 ==
LOC: ER 08:50 → PCU 15:48 → ICUE 15:48 → PCU 15:58 → ICUE 11-03 10:51 → PCU 11-06 04:12 → MEDS 11-06 18:14
PROVIDERS: Internal Medicine Critical Care Medicine; Internal Medicine Nephrology; Orthopaedic Surgery; Pharmacist; Physician Assistant; ADMIT Family Medicine
PROC: 3E03329 Introduction of Other Anti-infective into Peripheral Vein, Percutaneous Approach (ICD-10-PCS; 2021-10-31)
PROC: 5A09457 Assistance with Respiratory Ventilation, 24-96 Consecutive Hours, Continuous Positive Airway Pressure (ICD-10-PCS; 2021-11-01)
PROC: 0RBJ4ZZ Excision of Right Shoulder Joint, Percutaneous Endoscopic Approach (ICD-10-PCS; principal; 2021-11-01 11:00)
PROC: 06HY33Z Insertion of Infusion Device into Lower Vein, Percutaneous Approach (ICD-10-PCS; 2021-11-03)
PROC: 5A1D70Z Performance of Urinary Filtration, Intermittent, Less than 6 Hours Per Day (ICD-10-PCS; 2021-11-03)
DX: A41.9 Sepsis, unspecified organism (principal); G92.8 Other toxic encephalopathy; R65.21 Severe sepsis with septic shock; N17.0 Acute kidney failure with tubular necrosis; K85.90 Acute pancreatitis without necrosis or infection, unspecified; I33.0 Acute and subacute infective endocarditis; Z66 Do not resuscitate; Z51.5 Encounter for palliative care; T83.511A Infection and inflammatory reaction due to indwelling urethral catheter, initial encounter; I50.32 Chronic diastolic (congestive) heart failure; E27.40 Unspecified adrenocortical insufficiency; I13.0 Hypertensive heart and chronic kidney disease with heart failure and stage 1 through stage 4 chronic kidney disease, or unspecified chronic kidney disease; M00.811 Arthritis due to other bacteria, right shoulder; E87.1 Hypo-osmolality and hyponatremia; L03.115 Cellulitis of right lower limb; N12 Tubulo-interstitial nephritis, not specified as acute or chronic; Z20.822 Contact with and (suspected) exposure to COVID-19; Z78.1 Physical restraint status; E87.5 Hyperkalemia; R68.0 Hypothermia, not associated with low environmental temperature; N18.30 Chronic kidney disease, stage 3 unspecified; I48.91 Unspecified atrial fibrillation; E16.2 Hypoglycemia, unspecified; D63.1 Anemia in chronic kidney disease; K80.20 Calculus of gallbladder without cholecystitis without obstruction; N40.1 Benign prostatic hyperplasia with lower urinary tract symptoms; R33.8 Other retention of urine; J43.9 Emphysema, unspecified; J84.10 Pulmonary fibrosis, unspecified; G47.33 Obstructive sleep apnea (adult) (pediatric); Z79.899 Other long term (current) drug therapy; Z90.89 Acquired absence of other organs; Z98.890 Other specified postprocedural states; Z89.022 Acquired absence of left finger(s); Y84.6 Urinary catheterization as the cause of abnormal reaction of the patient, or of later complication, without mention of misadventure at the time of the procedure
CPT/HCPCS: 0241U; 36415; 36556; 36600; 51702; 70450; 71045; 73030; 73201; 74176; 80048; 80053; 80069; 80074; 80076; 80202; 81001; 82803; 82947; 83605; 83690; 83735; 85014; 85018; 85025; 85651; 86140; 86317; 87040; 87070; 87075; 87077; 87086; 87186; 87205; 89051; 89060; 92526; 92610; 93306; 93971; 94660; 94760; 94762; 96374; 96375; 97162; 97165; 97530; 99285-25; A9270; C1751; C1752; C9113; J0171; J0696; J1100; J1644; J1650; J1720; J2060; J2270; J2370; J2405; J2704; J3010; J3370; J7030; J7060; J7070; J7120; Q9967